=== PATIENT | female | born 1960 | race Caucasian/White ===

== ENCOUNTER 2020-05-05 07:38 | Outpatient (CLI) | payer BC, OTHER, SELFPAY ==
--- NOTE | 2020-05-05 07:43 | ECHO_ITS ---
Patient Info Name: Elva Berumen Age: 59 years : 1960 Gender: Female Ht: 61 in Wt: 150 lbs BSA: 1.73 m2 HR: 65 bpm BP: 183 / 116 mmHg Heart Rhythm: Sinus Rhythm Technical Quality: Good Exam Date: 05/05/2020 7:54 AM Exam Location: [facility]monary Patient Status: Outpatient Admit Date: 05/05/2020 Staff Ordering Physician: Johnna Bui Senior Policy Associate: Joshua Blunt RDCS Attending Provider: Swapnil Ramachandran MD Referring Physician: Hao MILLER; Exam Type: CA echo doppler color flow Study Info Indications R00.2 - Palpitations Complete two-dimensional, color flow and Doppler transthoracic echocardiogram is performed. Strain analysis performed. History/Risk Factors Palpitations. Summary 1. Complete two-dimensional, color flow and Doppler transthoracic echocardiogram is performed. 2. Left ventricular chamber dimension is normal. 3. Ventricular septum is sigmoid shaped. No LVOT obstruction. 4. Left ventricular systolic function is normal, estimated at 65-70%. 5. There is moderately increased left ventricular wall thickness. 6. The left ventricular diastolic function is grade I diastolic dysfunction. 7. E/e' 13 is mildly elevated. 8. Global longitudinal strain is normal at -17.7%. 9. Left atrial chamber dimension is mildly enlarged. 10. There is mild aortic valve sclerosis. 11. There is mild mitral valve regurgitation. Left Ventricle E/e' 13 is mildly elevated. Global longitudinal strain is normal at -17.7%. Ventricular septum is sigmoid shaped. No LVOT obstruction. Left ventricular chamber dimension is normal. Left ventricular systolic function is normal, estimated at 65-70%. There is moderately increased left ventricular wall thickness. The left ventricular diastolic function is grade I diastolic dysfunction. Right Ventricle Right ventricular chamber dimension is normal. Right ventricular systolic function is normal. Left Atria Left atrial chamber dimension is mildly enlarged. Right Atria Right atrial chamber dimension is normal. Aortic Valve The aortic valve is trileaflet. There is mild aortic valve sclerosis. There is no aortic valve stenosis. There is no aortic valve regurgitation. Pulmonic Valve There is no pulmonic regurgitation. Mitral Valve There is no mitral valve stenosis. There is mild mitral valve regurgitation. Tricuspid Valve There is no tricuspid valve regurgitation. Pericardium/Pleural There is no pericardial effusion. Inferior Vena Cava Normal inferior vena cava with >50% collapse upon inspiration consistent with normal right atrial pressure, 5 mmHg. Aorta The aortic root size at the sinus of Valsalva is normal. Left Ventricular Outflow Tract Name Value Normal LVOT 2D LVOT Diameter 2.0 cm LVOT Doppler LVOT Peak Gradient 2 mmHg LVOT Mean Gradient 2 mmHg LVOT VTI 17 cm LVOT VTI/AV VTI Ratio 0.7 LVOT Stroke Volume 56 ml LVOT CO
== END 2020-05-05 07:39 | disposition home or self-care (01) ==
PROVIDERS: PCP Family Medicine; Visit Provider Family Medicine
DX: R00.2 Palpitations (principal)
CPT/HCPCS: 93306

== ENCOUNTER 2020-05-12 12:15 | Outpatient (CLI) | payer BC, OTHER, SELFPAY ==
--- NOTE | ~2020-05-12 | MM_ITS ---
EXAMINATION: MM screening devonte BI w brenda HISTORY: Screening TECHNIQUE: Craniocaudal and mediolateral oblique 3-D tomosynthesis images were obtained and synthetic 2-D images were generated. CAD analysis was submitted and interpreted. COMPARISON: Comparison to multiple prior studies sequentially, with oldest reviewed study dated 08/26. BREAST PARENCHYMAL COMPOSITION: There are scattered areas of fibroglandular density. FINDINGS: There is no evidence of suspicious mass, calcification, or architectural distortion to sugg est malignancy in either breast. There has been no suspicious interval change. IMPRESSION: 1. No mammographic evidence of malignancy. 2. Recommend routine screening mammography in one year. BI-RADS Category 1: Negative Reviewed, dictated and finalized at location A. TECHNICIAN
== END 2020-05-12 12:16 | disposition home or self-care (01) ==
LOC: ANHIMG 12:17
PROVIDERS: PCP Family Medicine; Visit Provider Family Medicine
DX: Z12.31 Encounter for screening mammogram for malignant neoplasm of breast (principal)
CPT/HCPCS: 77063; 77067

== ENCOUNTER 2020-06-21 14:24 | Outpatient (CLI) | payer BC, OTHER, SELFPAY ==
--- NOTE | ~2020-06-21 | MR_ITS ---
EXAMINATION: MR brain/brain stem wo/w con DATE: 06/21/2020 15:33 INDICATION: Headache. Personal history of other diseases of the nervous system and sense organs. TECHNIQUE: Magnetic resonance imaging (MRI) of the brain and brainstem was performed without and with 13 mL MultiHance intravenous contrast. Sequences included sagittal and axial T1-weighted FSE, axial diffusion-weighted FS EPI, axial T2*-weighted GRE, axial T2-weighted FLAIR Propeller, and axial T2-we ighted Propeller. Postcontrast sequences included axial and coronal T1-weighted FSE. Apparent diffusi on coefficient (ADC) maps were created. COMPARISON: Brain MRI 09/25/2018 FINDINGS: There is no intracranial hemorrhage, acute infarction, or abnormal intracranial mass lesion . The ventricles are normal in size. There is mild mucosal thickening in the paranasal sinuses. The o rbits are normal. There is a right mastoid effusion. IMPRESSION: 1. Normal brain. 2. Right mastoid effusion again seen. Reviewed, dictated and finalized at location A. NEERING TECHNICAL SPECIALIST
[2020-06-21 15:08] LABS: Estimated Glomerular Filt Rate 42
== END 2020-06-21 14:25 | disposition home or self-care (01) ==
PROVIDERS: PCP Family Medicine; Visit Provider Nurse Practitioner Family
DX: R41.3 Other amnesia (principal); R51.9 Headache, unspecified; Z86.69 Personal history of other diseases of the nervous system and sense organs; M25.48 Effusion, other site
CPT/HCPCS: 70553; A9577

== ENCOUNTER 2020-06-25 08:49 | Outpatient (CLI) | payer BC, OTHER, SELFPAY ==
--- NOTE | ~2020-06-25 | NM_ITS ---
EXAMINATION: NM angel stress w perfusion EXAM DATE: 06/25/2020 11:04 INDICATION: Chest pain, palpitations. Ischemic chest pain. TECHNIQUE: Rest images were obtained following intravenous administration of 9.3 mCi Tc99m tetrofosmi n (Myoview). The patient was infused intravenously with Lexiscan (regadenoson). Then, 29.1 mCi Tc99m tetrofosmin (Myoview) was administered intravenously, and stress images were obtained. Data was deion nstructed into short axis and horizontal and vertical long axis SPECT images. Gated SPECT images were also obtained. There is no prior study for comparison. FINDINGS: There is no reversible or fixed perfusion abnormality to suggest ischemia or infarction. Th ere is normal left ventricular wall motion. End diastolic volume: 90 mL. End-systolic volume: 24 mL. Left ventricular ejection fraction: 73%. IMPRESSION: 1. Normal myocardial perfusion at rest and during stress. 2. Left ventricular ejection fraction measuring 73%. Reviewed, dictated and finalized at location B. INE MAINTENANCE REPAIRER
--- NOTE | 2020-06-25 09:28 | EST_ITS ---
Patient Info Name: Elva Berumen Age: 59 years : 1960 Gender: Female Ht: 61 in Wt: 150 lbs BSA: 1.73 m2 Exam Date: 06/25/2020 9:53 AM Exam Location: [facility] Stress Patient Status: Outpatient Admit Date: 06/25/2020 Staff Ordering Physician: Johnna Bui Attending Provider: Johnna Bui Exercise Technologist: Gisell Palmer CT Exercise Physician: Dayo James DO Exam Type: CA stress angel w NM Study Info Indications R07.9 - Chest pain, unspecified A regadenoson stress test was performed. Summary 1. 1. Negative lexiscan stress test for ischemic ST changes by ECG criteria. 2. 2. Baseline hypertension. 3. 3. Nuclear scan to follow and will be reported separately. Please correlate with it. 4. 4. Patient informed of the above results. Protocol: Lexiscan Stress ECG Details Stage: REST Duration (min): 16 min : 53 sec HR (bpm): 59 SBP (mmHg): 168 DBP (mmHg): 97 Stage: STAGE 1 Duration (min): 1 min : 0 sec HR (bpm): 76 SBP (mmHg): 180 DBP (mmHg): 111 Stage: RECOVERY Duration (min): 1 min : 0 sec HR (bpm): 89 SBP (mmHg): 180 DBP (mmHg): 111 Stage: RECOVERY Duration (min): 2 min : 0 sec HR (bpm): 86 SBP (mmHg): 180 DBP (mmHg): 111 Stage: RECOVERY Duration (min): 3 min : 0 sec HR (bpm): 82 SBP (mmHg): 174 DBP (mmHg): 107 Stage: RECOVERY Duration (min): 4 min : 0 sec HR (bpm): 79 SBP (mmHg): 174 DBP (mmHg): 107 Stage: RECOVERY Duration (min): 4 min : 59 sec HR (bpm): 78 SBP (mmHg): 185 DBP (mmHg): 107 Rest HR: 59 bpm Peak HR: 91 bpm Rest Sys BP: 168 mmHg Peak Sys BP: 185 mmHg Max Pred HR: 159 bpm % Max Pred HR: 57 % Target HR: 135 bpm Max RPP: 16,835 bpm*mmHg Termination Reason: Completed protocol Cardiac Symptoms: Shortness of breath, Chest pain, Dizziness Total Time: 1 min : 0 sec Rest Ruiz BP: 97 mmHg Peak Ruiz BP: 107 mmHg Total Dose: 0.4 mg Resting ECG Sinus rhythm. Stress ECG No ST changes. Arrhythmias None. Report Signatures
== END 2020-06-25 08:50 | disposition home or self-care (01) ==
PROVIDERS: PCP Family Medicine; Visit Provider Nurse Practitioner Family
DX: R07.89 Other chest pain (principal); R00.2 Palpitations; I10 Essential (primary) hypertension
CPT/HCPCS: 78452; 93017; A9502; J2785

== ENCOUNTER → 2020-12-01 13:34 | Outpatient (CLI) | payer BC, OTHER, SELFPAY ==
--- NOTE | ~2020-12-01 | XR_ITS ---
XR foot RT min 3V DATE: 12/01/2020 14:05 INDICATION: Right foot pain, ankle pain TECHNIQUE: 4 views COMPARISON: None FINDINGS: Diffuse osteopenia. Plantar and posterior calcaneal enthesopathy. Mild osteoarthritis at the first metatarsophalangeal joint. No fracture, dislocation, periosteal reaction or bone destruction. IMPRESSION: Osteopenia Plantar and posterior calcaneal enthesopathy Mild osteoarthritis at first metatarsophalangeal joint Reviewed, dictated and finalized at location B.
--- NOTE | ~2020-12-01 | XR_ITS ---
XR ankle RT min 3V DATE: 12/01/2020 14:05 INDICATION: Right ankle pain following injury TECHNIQUE: 4 views COMPARISON: None FINDINGS: There is plantar and posterior calcaneal enthesopathy. No recent fracture or dislocation of the ankle or disruption of the ankle mortise. No periosteal reac tion or bone destruction. IMPRESSION: Plantar and posterior calcaneal enthesopathy No recent fracture or dislocation of the ankle Reviewed, dictated and finalized at location B.
== END ==
PROVIDERS: PCP Family Medicine
DX: M85.871 Other specified disorders of bone density and structure, right ankle and foot (principal); M77.31 Calcaneal spur, right foot
CPT/HCPCS: 73610; 73630

== ENCOUNTER → 2021-02-25 10:23 | Outpatient (CLI) | payer BC, OTHER, SELFPAY ==
--- NOTE | ~2021-02-25 | CT_ITS ---
EXAMINATION: CT abdomen w con EXAM DATE: 02/25/2021 10:55 INDICATION: R10.13 - Epigastric pain . TECHNIQUE: Spiral CT of the abdomen was performed following intravenous injection of 100 mL Omnipaque 350. Axial, coronal and sagittal images of the abdomen were reviewed. The dose-length product (DLP ) for this examination was 305.43 mGy-cm. The exposure was tailored according to patient size (auto mA exposure control), and iterative reconstruction (ASIR) was used as additional dose reduction techn ique. Comparison is made to prior examination from 04/23/2017. FINDINGS: The liver, spleen, adrenal glands and pancreas are unremarkable. There are cholecystectomy clips. Portal and splenic veins are patent. Kidneys enhance symmetrically. There is no hydronephr osis. There is no retroperitoneal lymphadenopathy. There is moderate scattered arteriosclerotic disease. Small umbilical, supra umbilical fat-containing hernias. The stomach and small bowel are unremarkable. There is expected amount of colonic stool. No free i ntraperitoneal gas. The heart is normal in size. There are no pericardial or pleural effusions. T he lung bases are unremarkable. There are no osteoblastic or osteolytic lesions identified. IMPRESSION: 1. Small umbilical, supra umbilical fat-containing hernias. Reviewed, dictated and finalized at location B.
[2021-02-25 10:44] LABS: Estimated Glomerular Filt Rate > 60
== END ==
PROVIDERS: PCP Nurse Practitioner Family; Visit Provider Nurse Practitioner Family
DX: K21.9 Gastro-esophageal reflux disease without esophagitis (principal); R10.13 Epigastric pain; Z72.0 Tobacco use; K42.9 Umbilical hernia without obstruction or gangrene
CPT/HCPCS: 74160; Q9967

== ENCOUNTER → 2021-03-18 09:36 | Outpatient (CLI) | payer BC, OTHER, SELFPAY ==
--- NOTE | ~2021-03-18 | MMUS_ITS ---
EXAMINATION: MM diagnostic devonte BI w brenda, US breast LT limited HISTORY: Pain in the upper outer quadrant of the left breast and lump in the lower outer quadrant of the left breast. TECHNIQUE: Craniocaudal, mediolateral, and mediolateral oblique 3-D tomosynthesis images of the breas ts were performed and synthetic 2-D images were generated. CAD analysis was submitted and interpreted . High resolution limited left breast ultrasound was performed. COMPARISON: 05/12/2020, 10/17/2016, 08/26/2012 BREAST PARENCHYMAL COMPOSITION: There are scattered areas of fibroglandular density. FINDINGS: MAMMOGRAPHIC FINDINGS: There is no evidence of suspicious mass, calcification, or architectural distortion in either breast to suggest malignancy. There has been no suspicious interval change. No mammographic correlate is jono ntified for the patient's reported left breast pain or palpable lump. ULTRASOUND: There is a 5 mm x 2 mm oval, circumscribed, parallel, hypoechoic mass with no posterior features or i nternal vascularity at the 12:00 location 3.5 cm from the nipple in the area of the patient's breast pain. When compared to prior ultrasound from 2012, this demonstrates minimal increase in size. IMPRESSION: 1. Probably benign left breast mass at the 12:00 location. 2. Recommend 6 month follow-up left diagnostic mammogram and ultrasound. BI-RADS category 3, probably benign findings. Reviewed, dictated and finalized at location A. H MANAGER IMPRESSION: 1. Probably benign left breast mass at the 12:00 location. 2. Recommend 6 month follow-up left diagnostic mammogram and ultrasound. BI-RADS category 3, probably benign findings.
== END ==
PROVIDERS: PCP Family Medicine; Visit Provider Nurse Practitioner Family
DX: N63.20 Unspecified lump in the left breast, unspecified quadrant (principal); R92.8 Other abnormal and inconclusive findings on diagnostic imaging of breast
CPT/HCPCS: 76642; 77062; 77066; G0279

== ENCOUNTER 2021-10-03 11:59 | Observation (INO) | payer BC, OTHER, SELFPAY ==
[2021-10-03] VITALS (17 sets, daily range): BP systolic 143–237; BP diastolic 74–124; PULSE 62–92; RESP 10–21; TEMP 35.6–36.4; O2SAT 92–100; BMI 29.4
--- NOTE | ~2021-10-03 | CT_ITS ---
EXAMINATION: Peña Eubanks, DO DATE: 10/03/2021 14:44 INDICATION: Chest, neck, and back pain. Hypertension. TECHNIQUE: Computed tomographic angiography (CTA) of the chest, abdomen, and pelvis was performed wit h 100 mL Omnipaque 300 intravenous contrast. Automated exposure control and iterative reconstruction technique were employed. The dose-length product was 713.27 mGy-cm. Maximum intensity projection 3D-r econstructions of the aorta and other arteries were constructed by the technologist on a separate wor kstation. COMPARISON: CT abdomen 02/25/2021 FINDINGS: CHEST CTA: The lungs demonstrate minimal atelectasis. No pleural effusion. The heart size is normal. No pericard ial effusion. There is no pulmonary embolus. Thoracic aorta is normal in caliber. There is mild aorti c atherosclerosis. There is mild thoracic spondylosis. ABDOMEN AND PELVIS CTA: The liver and spleen are normal. There are changes of cholecystectomy. The pancreas, adrenal glands, and kidneys are normal. There are no dilated loops of bowel. The appendix is normal. There is no sign ificant stenosis of celiac axis, superior mesenteric artery, or the renal arteries. 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 Aortic atherosclerosis is noted. No aneurysm or di ssection. There are no pathologically enlarged lymph nodes. There is no free intraperitoneal fluid. T here is a supraumbilical ventral hernia containing fat. There is mild lumbar spondylosis. IMPRESSION: 1. Aortic atherosclerosis. No aneurysm or dissection. 2. Supraumbilical ventral hernia containing fat. Reviewed, dictated and finalized at location A.
--- NOTE | ~2021-10-03 | CT_ITS ---
EXAMINATION: CT brain wo con DATE: 10/03/2021 14:43 INDICATION: headache . TECHNIQUE: Computed tomography (CT) of the head was performed without intravenous contrast. The mA wa s adjusted according to patient size. Iterative reconstruction technique was employed. The dose-lengt h product was 605.33 mGy-cm. COMPARISON: MRI brain 06/21/2020 FINDINGS: No acute intracranial hemorrhage or extra-axial fluid collection. No hydrocephalus, mass, or herniation. No acute ischemic infarct. Unremarkable dural venous sinus attenuation. No acute osseous abnormality. Trace right mastoid effusion, otherwise the aerated spaces are clear. Mild chronic white matter change. Old right basal ganglia infarct. Atherosclerotic intracranial calci fication. IMPRESSION: No acute intracranial process. Reviewed, dictated and finalized at location K.
--- NOTE | 2021-10-03 12:09 | ECG_ITS ---
Measurements Intervals [place] Rate: 64 P: 54 RI: 189 QRS: 25 QRSD: 78 T: 40 QT: 379 QTc: 391 Interpretive Statements SINUS RHYTHM POSSIBLE LEFT ATRIAL ENLARGEMENT [-0.1mV P WAVE IN V1/V2] COMPARED TO ECG 09/07/2018 05:56:11 SINUS RHYTHM NOW PRESENT Electronically Signed On 10-03-2021 15:36:42 CDT by Ayse Colunga MD
[2021-10-03 12:27] LABS: Basophils Percent Auto 0.6 % (0.2-1.2); Eosinophils Absolute Auto 0.2 K/mm3 (0-0.3); Eosinophils Percent Auto 2.4 % (0-4.4); Hemoglobin 14.2 g/dL (12.0-15.0); Immature Granulocyte Absolute 0.01 K/mm3 (0.00-0.031); Immature Granulocyte Percent A 0.2 % (0-0.5); Lymphocytes Absolute Auto 1.58 K/mm3 (0.9-3.2); Lymphocytes Percent Auto 25.1 % (18.3-44.2); Mean Corpuscular HGB Conc 32.3 g/dl (32-36); Mean Corpuscular Hemoglobin 31.2 pg (26-34); Mean Corpuscular Volume 96.7 fl (80-100); Mean Platelet Volume 9.3 fl (7.4-10.4); Monocytes Absolute Auto 0.3 K/mm3 (0.1-0.6); Monocytes Percent Auto 4.3 % (2.6-8.5); Neutrophils Absolute Auto 4.3 K/mm3 (1.3-6.7); Neutrophils Percent Auto 67.4 % (45.5-73.1); Platelet Count Result 264 k/mm3 (150-375); Red Blood Count 4.55 M/mm3 (4.2-5.4); Red Cell Distribution Width 13.5 % (11.5-14.5); White Blood Count 6.3 K/mm3 (4.5-10.0)
[2021-10-03 12:37] LABS: Alanine Aminotransferase 22 U/L (6-35); Albumin Level 4.5 g/dL (3.5-5.1); Alkaline Phosphatase 91 U/L (38-126); Anion Gap 7 mmol/L (8-16); Aspartate Amino Transferase 22 U/L (14-36); Bilirubin,Total 0.2 mg/dL (0.2-1.3); Blood Urea Nitrogen 14 mg/dL (7-17); Calcium 9.7 mg/dL (8.4-10.2); Carbon Dioxide 28 mmol/L (22-30); Chloride 104 mmol/L (98-107); Estimated CRCL calculation 51 ml/min; Estimated Glomerular Filt Rate > 60; Glucose 96 mg/dL (65-110); Potassium 4.2 mmol/L (3.4-5.0); Sodium 139 mmol/L (137-145)
--- NOTE | 2021-10-03 13:12 | ED.GENADULT ---
HPI - General Adult General Chief complaint: Recheck/Abnormal Lab/Rx Stated complaint: high bp, from dr. powell office Time Seen by Provider: 10/03/21 12:56 Source: RN notes reviewed History of Present Illness HPI narrative: Patient presents emergency department from Dr. Powell's office for hypertension. Patient states she has a history of hypertension and is on blood pressure medicine she states she has not taken for the past 3 days because she gone to her PCP last week and they had noted that she had had really no change with her blood pressure since she started medication. States that she is waiting to see Dr. Powell today and saw him in the office that time her blood pressures were up in the systolics of [address] Powell brought her down to the emergency department for further evaluation patient states that she has had a headache she denies any fevers or chills vision changes numbness or tingling in extremities,. Patient states that starting last night she developed pain in her left lower back that went up her left side into her left ribs up into her left side of her neck and into her left ear states she did take a muscle relaxer last night for the symptoms she denies any numbness or weakness of the extremities Related Data Allergies Allergy/AdvReac Type Severity Reaction Status Date / Time latex Allergy Unknown Unknown Verified 10/03/21 13:01 Penicillins Allergy Unknown Unknown Verified 10/03/21 13:01 Bgwerri-NDI-QgL Reductase Allergy Unknown Muscle pain Verified 10/03/21 13:01 Inhibitor [Brovkcm-Tkk-Stj Reductase Inhibitor] ezetimibe [From Zetia] AdvReac Severe Cramping Verified 10/03/21 13:01 of the Muscles azithromycin AdvReac Intermediate Nausea Verified 10/03/21 13:01 Review of Systems Review of Systems: Gen.: Denies fevers or chills Eyes: Denies eye pain or visual change ENT: Denies congestion reports left-sided neck pain and left ear pain Respiratory: Denies shortness of breath or cough CV: Denies chest pain or palpitations reports left rib pain GI: Reports left-sided abdominal pain nausea, emesis or diarrhea Musculoskeletal: Reports left-sided back pain denies muscle pain Neuro: See HPI Skin: Denies rash Except as documented, all other systems reviewed and negative PMFSH Past Medical History Medical History (Updated 10/03/21 @ 16:14 by Peña Eubanks DO) Atherosclerosis of renal artery BMI 28.0-28.9,adult Diverticulosis Gastro-esophageal reflux disease without esophagitis Tobacco abuse Uncontrolled hypertension Family History Family History Grandparent Family history of heart disease in male family member before age 55 Father Hypertension Lung cancer Mother Hypertension Glaucoma Sibling Diabetes mellitus Hypertension Glaucoma Other Family history of arthritis Social History Social History Smoking packs per day: 0.5 Smoking cigarettes per day: 10.0 Years smoked: 32 Smoking pack-years: 16.00 Smoking status: Current every day smoker Tobacco type: cigarettes Second hand tobacco smoke exposure: Yes Alcohol intake: current Substance use: never Substance use type: does not use 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 CARDIOVASCULAR: Regular rate and rhythm without murmurs rubs or gallops. ABDOMINAL: Soft, and left lower quadrant no tenderness left upper quadrant, right upper quadrant right lower quadrant no rebound or guarding nondistended tender palpation Back: No midline thoracic lum
[2021-10-03 13:25] LABS: Appearance Urine Clear (Clear); Bilirubin Urine Negative (Negative); Blood Urine Negative (Negative); Color Urine Yellow (Yellow); Glucose Urine UA Negative (Negative); Ketones Urine Negative (Negative); Leukocyte Esterase Ur Negative LEU/UL (Negative); Nitrate Urine Negative (Negative); Protein Urine Negative (Negative); Urobilinogen Urine 0.2 mg/dL (<2.0); pH Urine 6.5 (5.0-9.0)
[2021-10-03 13:28] LABS: RBC Urine 0-2 /hpf (0-2); Squamous Epithelial Cell Urine Rare /hpf (Few); WBC Urine 0-3 /hpf
[2021-10-03 13:30] LABS: Add Urine Microscopic? YES
[2021-10-03] MEDS: hydrALAZINE HCL 20 MG/ML VIAL 10 MG IV PUSH ×2 (14:07→16:01)
[2021-10-03 15:25] LABS: Creatinine Urine 53.8 mg/dL
[2021-10-03 15:44] LABS: MALB Creatinine Ratio < 11.2 mg/g (0-30); Microalbumin Urine Random < 6.0 mg/L (0-16.7)
[2021-10-03] MEDS: HYDROcodone/acetaminophen (*CRX) 5-325 MG TABLET 1 TAB PO (16:01)
--- NOTE | 2021-10-03 16:29 | ADMGEN ---
This patient, Elva Berumen, was admitted to IMU Room 201-01. Patient/family oriented to hospital policies and general routines including ID bracelet, bed and alarms, visiting hours, pain management, procedures, bathroom and other care routines, personal items, smoking policy, room service/diet, and visiting hours. Information on how to activate the Rapid Response Team has been discussed. Patient/Family are encouraged to report perceived risks to care and to ask questions if they do not understand what they are told or what they should do.
[2021-10-03 19:08] LABS: Parathyroid Intact 64.9 pg/mL (7.5-53.5)
--- NOTE | 2021-10-03 19:41 | PM.IMHP ---
H&P: HPI History of Present Illness Date/Time: Patient was placed observation status for expected length of stay less than 23 hours for management, will plan to re-evaluate tomorrow for improvement. 10/03/21 19:41 Chief Complaint: Hypertension Narrative: Ms. Berumen is a 60-year-old female who presented to the emergency room after being brought by Nephrology for uncontrolled hypertension. Patient states that she has a history of hypertension and typically runs a blood pressure of 140s over 70s, but over the last month since having injections into her knees she states her blood pressure has been uncontrolled. Patient states that she had been taking amlodipine and Bystolic, but she quit taking the Bystolic because she states that was causing heartburn. Patient was was placed on metoprolol and had improvement in her reflux. Per patient's primary care records patient has had multiple issues/reactions to multiple blood pressure medications when has been difficult controlling her blood pressure. Patient was referred to Nephrology for further evaluation of her hypertension and when the automobile upholsterer saw her today he noticed that her blood pressure significantly elevated brought her to the emergency room. Patient states for the last month she has had a headache. Patient denies any blurred vision, double vision, slurred speech, numbness, tingling, or weakness to extremities. Patient states she has had side effects from multiple medications in the past. Patient denies any chest pain, shortness a breath, lightheadedness, dizziness, or syncopal episodes. Patient has a known history of hypertension that has been uncontrolled, osteoarthritis, and gastroesophageal reflux disease. Review of Systems Review of Systems: A 12 point review of systems was completed patient all pertinent positive and negative per HPI the remainder are unremarkable. [facility] Past Medical History Medical History (Updated 10/03/21 @ 16:14 by Peña Eubanks DO) Atherosclerosis of renal artery BMI 28.0-28.9,adult Diverticulosis Gastro-esophageal reflux disease without esophagitis Tobacco abuse Uncontrolled hypertension Family History Family History Grandparent Family history of heart disease in male family member before age 55 Father Hypertension Lung cancer Mother Hypertension Glaucoma Sibling Diabetes mellitus Hypertension Glaucoma Other Family history of arthritis Social History Social History Smoking packs per day: 0.5 Smoking cigarettes per day: 10.0 Years smoked: 44 Smoking pack-years: 22.00 Smoking status: Current every day smoker Tobacco type: cigarettes Second hand tobacco smoke exposure: Yes Additional smoking assessment comments: trying to quit Alcohol intake: current Drinks per week: 2 Substance use: never Substance use type: does not use Additional occupation/education comments: WALKER [employer] Gender identity (if verbalized by the patient): Female Spiritual care concerns: No Meds Home Medications and Allergies Home Medications Medication Instructions Recorded Confirmed Type metoprolol succinate 100 mg 100 mg PO DAILY #30 tabs 09/27/21 10/03/21 Rx tablet,extended release 24 hr cyclobenzaprine 7.5 mg tablet 7.5 mg PO .HS PRN Muscle Pain 10/03/21 10/03/21 History Allergies Allergy/AdvReac Type Severity Reaction Status Date / Time latex Allergy Unknown Unknown Verified 10/03/21 13:01 Penicillins Allergy Unknown Unknown Verified 10/03/21 13:01 Dgezbgc-CNE-LcY Reductase Allergy Unknown Muscle pain Verified 10/03/21 13:01 Inhibitor [Vrjrizj-Aoi-Gig Reductase Inhibitor] ezetimibe [From Zetia] AdvReac Severe Cramping Verified 10/03/21 13:01 of the Muscles azithromycin AdvReac Intermediate Nausea Verified 10/03/21 13:01 Vital Signs Vital
[2021-10-03] MEDS: ACETAMINOPHEN 325 MG TABLET 650 MG PO (22:57)
[2021-10-03] MEDS: CYCLOBENZAPRINE HCL 5 MG TABLET 7.5 MG PO (22:58)
--- NOTE | 2021-10-03 23:15 | PCRCNOTE ---
Pt scheduled to move rooms at some point throughout the night. Due to the pt being moved, the apnea link SANDRA study was not completed.
--- NOTE | 2021-10-03 23:45 | PC.NURSE ---
This patient, Elva Berumen, was transferred to [[id number] ] on 10/03/21 at 2345. Personal belongings sent with patient. Report given to [ Milagro RAVI]. Appropriate documentation sent with patient.
[2021-10-04] VITALS (15 sets, daily range): BP systolic 154–216; BP diastolic 82–112; PULSE 55–75; RESP 12–20; TEMP 36.3–36.6; O2SAT 97–99
[2021-10-04 06:24] LABS: Hemoglobin 12.9 g/dL (12.0-15.0); Mean Corpuscular HGB Conc 33.1 g/dl (32-36); Mean Corpuscular Hemoglobin 31.1 pg (26-34); Mean Platelet Volume 9.3 fl (7.4-10.4); Platelet Count Result 259 k/mm3 (150-375); Red Blood Count 4.15 M/mm3 (4.2-5.4); Red Cell Distribution Width 13.7 % (11.5-14.5); White Blood Count 5.5 K/mm3 (4.5-10.0)
[2021-10-04 06:34] LABS: Alanine Aminotransferase 17 U/L (6-35); Albumin Level 3.9 g/dL (3.5-5.1); Alkaline Phosphatase 67 U/L (38-126); Anion Gap 6 mmol/L (8-16); Aspartate Amino Transferase 18 U/L (14-36); Bilirubin,Total 0.4 mg/dL (0.2-1.3); Blood Urea Nitrogen 11 mg/dL (7-17); Calcium 8.9 mg/dL (8.4-10.2); Carbon Dioxide 25 mmol/L (22-30); Chloride 107 mmol/L (98-107); Estimated CRCL calculation 75 ml/min; Estimated Glomerular Filt Rate > 60; Glucose 90 mg/dL (65-110); Potassium 3.9 mmol/L (3.4-5.0); Sodium 138 mmol/L (137-145)
[2021-10-04 07:50] LABS: Platelet Estimate Adequate (Adequate)
[2021-10-04 07:52] LABS: Atypical Lymphocytes Present
--- NOTE | 2021-10-04 07:56 | PM.CNNEP ---
Assessment and Plan Additional Plan 1. Elva has poorly controlled hypertension. This is mostly because she does not tolerate medications. We discussed at length her side effects of medications. Some side effects are valid such as lisinopril causes a cough and amlodipine causes swelling. However other side effects she has may or may be not related to the medication that she is on. She has multiple other issues such as her headache, chronic back pain, smoking, etc. she says that her blood pressure goes up whenever she gets angry, or anything goes on like a car wreck, or some sudden illness. It seems that metoprolol was being tolerated fairly well. So this is been reinstituted. Adrenaline seems to be driving some of her high blood pressure, especially if it rises with stress. I told her metoprolol would be the perfect medication for this. She says that made her heart beat fast. I Told her this is actually the opposite of what it does. I think she jumps to the conclusion that if she has any symptom it is due to some medication that she is on. We discussed the importance of controlling her blood pressure. Her high blood pressure could cause stroke, heart attack, kidney disease, or . She certainly does not want those. So were treating off side effects of her blood pressure with side effects of medications. And we do not want to jump to the conclusion of symptoms always being from medications. Right now our blood pressure seems to be a little bit better. He is on metoprolol 100mg daily. Tomorrow I will add irbesartan as a 2nd agent. In the meantime she is getting hormonal tests for blood pressure. 2. Cigarette abuse. I encouraged her to stop smoking. 3. She should try to lose some weight. This would help her blood pressure as well without having to add more medication. 4. GERD. No symptoms of this right now. 5. Anxiety consider psychiatric input? History of Present Illness Reason for Consult Consult date: 10/04/21 Chief Complaint Chief complaint: Hypertensive urgency History of Present Illness Narrative: Dee is a very pleasant 60-year-old lady has multiple medical problems including severe hypertension, tobacco abuse, GERD, diverticulosis, who came to my office for the 1st time yesterday morning. She had a blood pressure of 240/140 so I wheeled her to the emergency room. Patient has long history of hypertension going back about 15 years. She says it started when she got a steroid shot when it went ?stroke high ?. Since then she has been struggling with her blood pressure. She has been on multiple medications but none of them are very well tolerated. Amlodipine causes swelling. Lisinopril causes a cough. She says that people other medications have been tried but each time she has side effects to those. I asked her if she has been on any blood pressure medication that did not give her a side effect and she could not think of 1. A month or 2 ago she was started on metoprolol 100mg per day. It did not really improve her blood pressure very much but she did not have any side effects early on. She was then started on Zetia and started seeing spots in front of her eyes and was dizzy. So she stopped both the Zetia and the metoprolol about 7 days ago. Yesterday when she was in the office she had not been taking any metoprolol for about 6 days. When she was in the ER she had multiple complaints. She has back pain, belly pain, anxiety, headache. In the ER she received some hydralazine and blood pressure came down to more reasonable levels. She had a CTA of the chest belly and pelvis and all of this was negative. The renal arteries were okay. Overnight the patient felt a little bit better. Her headache is better. She is generally very anxious. Conversation is very rapid, multiple symptoms, very tangential. Asked her she was ever treated for anxiety. She has not been. Review of Systems Constitutional: Evonneti
[2021-10-04] MEDS: METOPROLOL SUCCINATE EXT REL 100 MG TABCR PO (08:16)
[2021-10-04] MEDS: PANTOPRAZOLE SOD SESQUIHYDRATE 20 MG TAB PO (08:17)
[2021-10-04] MEDS: LIDOCAINE 5% PATCH 1 PATCH TRANSDERM (12:10)
--- NOTE | 2021-10-04 13:24 | PM.IMPN ---
Progress Note: A&P Assessment and Plan (1) Hypertensive urgency: Code(s): I16.0 - Hypertensive urgency Status: Acute Assessment and Plan: -chronic issue, uncontrolled HTN -seen by nephrology in the office yesterday and had a BP of 240/140 and was sent to hospital for inpatient management -pt's metoprolol has been restarted -Nephrology has ordered metanephrines, aldosterone, free cortisol and 24 urine. -appreciate further recommendations from nephrology (2) Gastro-esophageal reflux disease without esophagitis: Code(s): K21.9 - Gastro-esophageal reflux disease without esophagitis Status: Acute Assessment and Plan: -Will place patient on PPI since new medications will be started patient states she often gets reflux from any new medications. (3) Anxiousness: Code(s): F41.9 - Anxiety disorder, unspecified Status: Acute Assessment and Plan: -no offical dx of anxiety but patient is VERY anxious on exam. Conversation is very rapid and tangential with multiple symptoms and complaints. -consider psych consult vs outpatient evaluation Subjective Date/time seen: 10/04/21 13:24 Interval history: 60 yo female w/ hx of ?hypertension that has been uncontrolled, osteoarthritis, and gastroesophageal reflux disease, admitted for hypertensive urgency. Pt very anxious today. Having chronic low back and hip pain. Also having a posterior headache. No cp/sob/LE pain or edema. Review of Systems Review of Systems: All systems reviewed & are unremarkable except as noted in HPI and below Exam Narrative: General: No acute distress, non toxic appearing Eyes: PERRL, no scleral icterus HEENT: NCAT, external ears normal, MMM Respiratory: No respiratory distress, Lungs CTA bilaterally, no wheezing Cardiovascular: RRR, no murmur Abdominal: Soft, nontender, non distended, no rebound or guarding Musculoskeletal: Moves all 4 extremities, no edema Neurological: A/Ox3, speech clear, no facial asymmetry Skin: Warm, dry, no rashes Psychiatric: Normal affect, extremely anxious mood Objective Data Vital Signs Vital Signs: Vital Signs - 24 hr 10/03/21 13:30 10/03/21 13:32 10/03/21 13:59 Temperature Pulse Rate 64 64 63 Respiratory Rate 18 21 H 15 Blood Pressure 226/98 H Pulse Oximetry 99 99 99 Oxygen Delivery 10/03/21 14:42 10/03/21 15:21 10/03/21 16:05 Temperature 97 F L Pulse Rate 83 82 80 Respiratory Rate 10 L 17 20 Blood Pressure 207/100 H 186/76 H Pulse Oximetry 92 99 99 Oxygen Delivery 10/03/21 18:00 10/03/21 16:30 10/03/21 20:17 Temperature Pulse Rate 92 Respiratory Rate Blood Pressure Pulse Oximetry 97 Oxygen Delivery Room Air Room Air 10/03/21 20:00 10/03/21 20:00 10/03/21 22:52 Temperature 97 F L 97.6 F Pulse Rate 79 82 80 Respiratory Rate 20 18 Blood Pressure 143/74 H 162/75 H Pulse Oximetry 99 100 Oxygen Delivery 10/03/21 20:00 10/03/21 22:00 10/04/21 00:24 Temperature 97.9 F Pulse Rate 71 75 Respiratory Rate 20 Blood Pressure 156/93 H Pulse Oximetry 97 Oxygen Delivery Room Air 10/04/21 04:00 10/03/21 23:55 10/04/21 03:55 Temperature 97.4 F L Pulse Rate 66 72 65 Respiratory Rate 18 Blood Pressure 166/83 H Pulse Oximetry 99 Oxygen Delivery 10/04/21 08:16 10/04/21 10:10 10/04/21 08:00 Temperature 98 F Pulse Rate 69 66 68 Respiratory Rate 16 Blood Pressure 171/82 H Pulse Oximetry 98 Oxygen Delivery Intake/Output Intake/Output: Intake & Output 10/01/21 10/02/21 10/03/21 10/04/21 23:59 23:59 23:59 23:59 Intake Total 640 2170 Output Total 900 1000 Balance -260 1170 Meds/Results Medications: Active Medications Generic Name Dose Route Start Last Admin Trade Name Freq PRN Reason Stop Dose Admin Acetaminophen 650 mg 10/03/21 22:44 10/03/21 22:57 Acetaminophen 325 Mg Tablet PO 650 mg Q6H PRN Admin
[2021-10-04 20:33] LABS: Total Volume 24 Hour Urine 4500 ml
[2021-10-04] MEDS: SIMETHICONE 80 MG TAB.CHEW PO (20:49)
[2021-10-04] MEDS: hydrALAZINE HCL 20 MG/ML VIAL 10 MG IV PUSH (20:49)
[2021-10-04 21:06] LABS: Sodium 24 Hour Urine 117 mmol/day (40-220); Sodium Urine Random 26 meq/L
[2021-10-05] VITALS (12 sets, daily range): BP systolic 160–181; BP diastolic 76–97; PULSE 54–70; RESP 14–20; TEMP 36.1–36.9; O2SAT 97–99
[2021-10-05 06:10] LABS: Basophils Percent Auto 0.7 % (0.2-1.2); Eosinophils Absolute Auto 0.2 K/mm3 (0-0.3); Eosinophils Percent Auto 3.2 % (0-4.4); Hemoglobin 13.1 g/dL (12.0-15.0); Immature Granulocyte Absolute 0.03 K/mm3 (0.00-0.031); Immature Granulocyte Percent A 0.5 % (0-0.5); Lymphocytes Absolute Auto 1.91 K/mm3 (0.9-3.2); Lymphocytes Percent Auto 31.9 % (18.3-44.2); Mean Corpuscular Volume 97.2 fl (80-100); Mean Platelet Volume 9.3 fl (7.4-10.4); Monocytes Absolute Auto 0.4 K/mm3 (0.1-0.6); Monocytes Percent Auto 5.8 % (2.6-8.5); Neutrophils Absolute Auto 3.5 K/mm3 (1.3-6.7); Neutrophils Percent Auto 57.9 % (45.5-73.1); Platelet Count Result 267 k/mm3 (150-375); Red Blood Count 4.22 M/mm3 (4.2-5.4); Red Cell Distribution Width 13.8 % (11.5-14.5)
[2021-10-05 06:28] LABS: Anion Gap 6 mmol/L (8-16); Blood Urea Nitrogen 13 mg/dL (7-17); Carbon Dioxide 24 mmol/L (22-30); Chloride 109 mmol/L (98-107); Estimated CRCL calculation 65 ml/min; Estimated Glomerular Filt Rate > 60; Glucose 96 mg/dL (65-110); Potassium 3.9 mmol/L (3.4-5.0); Sodium 139 mmol/L (137-145)
[2021-10-05] MEDS: PANTOPRAZOLE SOD SESQUIHYDRATE 20 MG TAB PO (08:06)
[2021-10-05] MEDS: LIDOCAINE 5% PATCH 1 PATCH TRANSDERM (08:06)
[2021-10-05] MEDS: METOPROLOL SUCCINATE EXT REL 100 MG TABCR PO (08:06)
--- NOTE | 2021-10-05 10:30 | PM.PNNEP ---
Progress Note: A&P Additional Plan 1. Elva has poorly controlled hypertension. This is mostly because she does not tolerate medications. Multiple hormone tests are pending. CT a shows no renal artery stenosis. She is doing pretty well with the metoprolol. No severe side effects. Will add irbesartan as well. I will start with the middle of the range dose at 150 mg per day. Consider a diuretic down the line? Possibly consider anxiolytic medication? She should stop smoking.. 2. Cigarette abuse. I encouraged her to stop smoking. 3. She should try to lose some weight. This would help her blood pressure as well without having to add more medication. 4. GERD. No symptoms of this right now. 5. Anxiety consider psychiatric input? Subjective Date/time seen: 10/05/21 10:30 Interval history: Patient feels about the same. Last night her blood pressure rmoan to around 200. She says the blood pressure made her back hurt. The metoprolol makes her feel funny. It was a vague statement. We discussed at length about her blood pressure. We agree that she needs better blood pressure control. Metoprolol is a good start for her blood pressure because she has adrenaline driven spikes in blood pressure. Review of Systems Cardiovascular: Cardiovascular: Reports no additional cardiovascular complaints Respiratory: Respiratory: Reports no additional respiratory complaints Gastrointestinal: Gastrointestinal: Reports no additional gastrointestinal complaints Genitourinary: Genitourinary: Reports no additional female genitourinary complaints Exam Narrative: WDWN in NAD skin no rash head ncat lungs clear cor reg no rub abd BS+ nontender and soft ext no edema. Objective Data Vital Signs Vital Signs: Vital Signs - 24 hr 10/04/21 14:41 10/04/21 12:00 10/04/21 14:00 Temperature 36.6 C Pulse Rate 55 L 66 Respiratory Rate 14 Blood Pressure 154/82 H Pulse Oximetry 97 97 Oxygen Delivery Room Air 10/04/21 16:00 10/04/21 18:20 10/04/21 20:00 Temperature 36.3 C L Pulse Rate 70 60 Respiratory Rate 12 Blood Pressure 156/83 H Pulse Oximetry 98 Oxygen Delivery Room Air 10/04/21 20:45 10/04/21 22:26 10/04/21 20:00 Temperature 36.3 C L Pulse Rate 60 60 Respiratory Rate 18 Blood Pressure 216/112 H 198/95 H Pulse Oximetry 99 Oxygen Delivery 10/05/21 00:00 10/05/21 04:00 10/04/21 21:40 Temperature Pulse Rate 66 61 Respiratory Rate Blood Pressure Pulse Oximetry 97 Oxygen Delivery Room Air 10/05/21 06:15 10/05/21 08:06 Temperature 36.5 C Pulse Rate 61 61 Respiratory Rate 16 Blood Pressure 176/92 H Pulse Oximetry 98 Oxygen Delivery Intake/Output Intake/Output: Intake & Output 10/02/21 10/03/21 10/04/21 10/05/21 23:59 23:59 23:59 23:59 Intake Total 640 2650 Output Total 900 1000 500 Balance -260 1650 -500 Meds/Results Medications: Active Medications Generic Name Dose Route Start Last Admin Trade Name Ninoq PRN Reason Stop Dose Admin Acetaminophen 650 mg 10/03/21 22:44 10/03/21 22:57 Acetaminophen 325 Mg Tablet PO 650 mg Q6H PRN Administration Mild Pain (1-3) or Fever Cyclobenzaprine HCl 7.5 mg 10/03/21 19:43 10/03/21 22:58 Cyclobenzaprine Hcl 5 Mg Tablet PO 7.5 mg HS PRN Administration Muscle Pain Hydralazine HCl 10 mg 10/03/21 15:13 10/04/21 20:49 Hydralazine Hcl 20 Mg/Ml Vial IV PUSH 10 mg Q6H PRN Administration Blood Pressure - High Irbesartan 150 mg 10/05/21 09:00 Irbesartan 150 Mg Tablet PO QAM KAVON Lidocaine 1 patch 10/04/21 11:55 10/05/21 08:06 Lidocaine 5% Patch TRANSDERM 1 patch DAILY KAVON Administration Metoprolol Succinate 100 mg 10/04/21 09:00 10/05/21 08:06 Metoprolol Succinate Ext Rel 100 Mg Tabcr PO 100 mg DAILY KAVON Administration Pantoprazole Sodium 20 mg 10/04/21 09:00 10/05/21 08:06 Pantopr
[2021-10-05] MEDS: IRBESARTAN 150 MG TABLET PO (11:27)
--- NOTE | 2021-10-05 14:40 | PM.IMPN ---
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 -they have also started irbesartan -recommend cessation of smoking and dietary/lifestyle changes to lose weight -appreciate further recommendations from nephrology (2) Gastro-esophageal reflux disease without esophagitis: Code(s): K21.9 - Gastro-esophageal reflux disease without esophagitis Status: Acute Assessment and Plan: -Will place patient on PPI since new medications will be started patient states she often gets reflux from any new medications. (3) Anxiousness: Code(s): F41.9 - Anxiety disorder, unspecified Status: Acute Assessment and Plan: -no offical dx of anxiety but patient is VERY anxious on exam. Conversation is very rapid and tangential with multiple symptoms and complaints. -consider psych consult vs outpatient evaluation -discussed starting something for anxiety, discussed possibly starting Buspar. Pt is not keen on the idea but also not flat out refusing. She would like to change only one medication at a time. Subjective Date/time seen: 10/05/21 14:40 Interval history: 60 yo female w/ hx of ?hypertension that has been uncontrolled, osteoarthritis, and gastroesophageal reflux disease, admitted for hypertensive urgency. She feels a little better today. Back pain is better with ice packs. Discussed her anxiety, pt does not think she has anxiety. Not refusing medication but does not like the idea of adding medication because she thinks all medications have negative side effects on her. Review of Systems Review of Systems: All systems reviewed & are unremarkable except as noted in HPI and below Exam Narrative: General: No acute distress, non toxic appearing Eyes: PERRL, no scleral icterus HEENT: NCAT, external ears normal, MMM Respiratory: No respiratory distress, Lungs CTA bilaterally, no wheezing Cardiovascular: RRR, no murmur Abdominal: Soft, nontender, non distended, no rebound or guarding Musculoskeletal: Moves all 4 extremities, no edema Neurological: A/Ox3, speech clear, no facial asymmetry Skin: Warm, dry, no rashes Psychiatric: Normal affect, extremely anxious mood Objective Data Vital Signs Vital Signs: Vital Signs - 24 hr 10/04/21 14:41 10/04/21 16:00 10/04/21 18:20 Temperature 97.4 F L Pulse Rate 70 60 Respiratory Rate 12 Blood Pressure 156/83 H Pulse Oximetry 97 98 Oxygen Delivery Room Air 10/04/21 20:00 10/04/21 20:45 10/04/21 22:26 Temperature 97.4 F L Pulse Rate 60 Respiratory Rate 18 Blood Pressure 216/112 H 198/95 H Pulse Oximetry 99 Oxygen Delivery Room Air 10/04/21 20:00 10/05/21 00:00 10/05/21 04:00 Temperature Pulse Rate 60 66 61 Respiratory Rate Blood Pressure Pulse Oximetry Oxygen Delivery 10/04/21 21:40 10/05/21 06:15 10/05/21 08:06 Temperature 97.7 F Pulse Rate 61 61 Respiratory Rate 16 Blood Pressure 176/92 H Pulse Oximetry 97 98 Oxygen Delivery Room Air 10/05/21 08:00 10/05/21 09:00 10/05/21 12:00 Temperature 97.3 F L Pulse Rate 60 63 70 Respiratory Rate 14 Blood Pressure 160/90 H Pulse Oximetry 97 Oxygen Delivery Intake/Output Intake/Output: Intake & Output 10/02/21 10/03/21 10/04/21 10/05/21 23:59 23:59 23:59 23:59 Intake Total 640 2650 480 Output Total 900 1000 1100 Balance -260 5430 -620 Meds/Results Medications: Active Medications Generic Name Dose Route Start Last Admin Trade Name Jie PRN Reason Stop Dose Admin Acetaminophen 650 mg 10/03/21 22:44 10/03/21
[2021-10-05] MEDS: NICOTINE (*PBKC) 2 MG GUM PO (17:20)
[2021-10-05] MEDS: hydrALAZINE HCL 20 MG/ML VIAL 10 MG IV PUSH (21:48)
[2021-10-05] MEDS: polyethylene glycoL 3350 17 GM POWD.PACK PO ×2 (23:00→23:24)
[2021-10-06] VITALS: BP 153/93; PULSE 57; PULSE 62; RESP 18; TEMP 36.1; O2SAT 99
[2021-10-06 04:00] VITALS: BP 166/81; PULSE 53; PULSE 54; RESP 18; TEMP 36.6; O2SAT 98
[2021-10-06 06:20] LABS: Basophils Absolute Auto 0.1 K/mm3 (0.0-0.1); Basophils Percent Auto 0.7 % (0.2-1.2); Eosinophils Absolute Auto 0.2 K/mm3 (0-0.3); Eosinophils Percent Auto 2.8 % (0-4.4); Hematocrit 46.7 % (37.0-47.0); Hemoglobin 14.8 g/dL (12.0-15.0); Immature Granulocyte Absolute 0.02 K/mm3 (0.00-0.031); Immature Granulocyte Percent A 0.3 % (0-0.5); Lymphocytes Absolute Auto 2.32 K/mm3 (0.9-3.2); Lymphocytes Percent Auto 34.6 % (18.3-44.2); Mean Corpuscular HGB Conc 31.7 g/dl (32-36); Mean Corpuscular Volume 97.9 fl (80-100); Mean Platelet Volume 9.4 fl (7.4-10.4); Monocytes Absolute Auto 0.4 K/mm3 (0.1-0.6); Monocytes Percent Auto 5.2 % (2.6-8.5); Neutrophils Absolute Auto 3.8 K/mm3 (1.3-6.7); Neutrophils Percent Auto 56.4 % (45.5-73.1); Platelet Count Result 302 k/mm3 (150-375); Red Blood Count 4.77 M/mm3 (4.2-5.4); Red Cell Distribution Width 13.3 % (11.5-14.5); White Blood Count 6.7 K/mm3 (4.5-10.0)
[2021-10-06 06:44] LABS: Alanine Aminotransferase 22 U/L (6-35); Albumin Level 4.4 g/dL (3.5-5.1); Alkaline Phosphatase 77 U/L (38-126); Anion Gap 9 mmol/L (8-16); Aspartate Amino Transferase 24 U/L (14-36); Bilirubin,Total 0.6 mg/dL (0.2-1.3); Blood Urea Nitrogen 14 mg/dL (7-17); Calcium 9.4 mg/dL (8.4-10.2); Carbon Dioxide 21 mmol/L (22-30); Chloride 107 mmol/L (98-107); Estimated CRCL calculation 66 ml/min; Estimated Glomerular Filt Rate > 60; Glucose 92 mg/dL (65-110); Phosphorus 4.3 mg/dL (2.5-4.5); Potassium 4.2 mmol/L (3.4-5.0); Sodium 137 mmol/L (137-145)
[2021-10-06 08:00] VITALS: PULSE 58; O2SAT 100
[2021-10-06 08:50] VITALS: BP 172/80; PULSE 61; RESP 14; TEMP 36.8; O2SAT 100
[2021-10-06 08:54] VITALS: PULSE 61
[2021-10-06] MEDS: LIDOCAINE 5% PATCH 1 PATCH TRANSDERM (08:54)
[2021-10-06] MEDS: PANTOPRAZOLE SOD SESQUIHYDRATE 20 MG TAB PO (08:54)
[2021-10-06] MEDS: METOPROLOL SUCCINATE EXT REL 100 MG TABCR PO (08:54)
[2021-10-06] MEDS: NICOTINE (*PBKC) 2 MG GUM PO (08:55)
[2021-10-06] MEDS: ACETAMINOPHEN 325 MG TABLET 650 MG PO (09:25)
[2021-10-06] MEDS: polyethylene glycoL 3350 17 GM POWD.PACK PO (09:28)
[2021-10-06 12:00] VITALS: PULSE 53
--- NOTE | 2021-10-06 12:55 | PM.PNNEP ---
Progress Note: A&P Additional Plan 1. Elva has poorly controlled hypertension. This is mostly because she does not tolerate medications. Multiple hormone tests are pending. CTA shows no renal artery stenosis. She is doing pretty well with the metoprolol. No severe side effects. She is on metoprolol and irbesartan. Will add spironolactone. She should stop smoking. blood pressure seems a little more stable but still high. She can be discharged any time from the blood pressure standpoint. 2. Cigarette abuse. I encouraged her to stop smoking. 3. She should try to lose some weight. This would help her blood pressure as well without having to add more medication. 4. GERD. No symptoms of this right now. 5. Anxiety consider psychiatric input? Subjective Date/time seen: 10/06/21 12:55 Interval history: Patient feels about the same. Still has back pain. There with the patches. She has headache still. Exam Narrative: WDWN in NAD skin no rash head ncat lungs clear cor reg no rub abd BS+ nontender and soft ext no edema. Objective Data Vital Signs Vital Signs: Vital Signs - 24 hr 10/05/21 14:20 10/05/21 16:00 10/05/21 17:40 Temperature 36.9 C 36.9 C Pulse Rate 63 60 61 Respiratory Rate 16 14 Blood Pressure 169/85 H 167/76 H Pulse Oximetry 99 98 Oxygen Delivery 10/05/21 20:34 10/05/21 20:00 10/05/21 20:00 Temperature 36.1 C L Pulse Rate 60 54 L Respiratory Rate 20 Blood Pressure 181/97 H Pulse Oximetry 98 99 Oxygen Delivery Room Air 10/05/21 20:00 10/06/21 00:00 10/06/21 00:00 Temperature 36.1 C L Pulse Rate 60 57 L 62 Respiratory Rate 20 18 Blood Pressure 153/93 H Pulse Oximetry 98 99 Oxygen Delivery Room Air 10/06/21 04:00 10/06/21 04:00 10/06/21 08:54 Temperature 36.6 C Pulse Rate 54 L 53 L 61 Respiratory Rate 18 Blood Pressure 166/81 H Pulse Oximetry 98 Oxygen Delivery 10/06/21 08:50 10/06/21 08:00 Temperature 36.8 C Pulse Rate 61 Respiratory Rate 14 Blood Pressure 172/80 H Pulse Oximetry 100 100 Oxygen Delivery Room Air Intake/Output Intake/Output: Intake & Output 10/03/21 10/04/21 10/05/21 10/06/21 23:59 23:59 23:59 23:59 Intake Total 640 2650 960 240 Output Total 900 1000 2350 Balance -260 1650 -1390 240 Meds/Results Medications: Active Medications Generic Name Dose Route Start Last Admin Trade Name Freq PRN Reason Stop Dose Admin Acetaminophen 650 mg 10/03/21 22:44 10/06/21 09:25 Acetaminophen 325 Mg Tablet PO 650 mg Q6H PRN Administration Mild Pain (1-3) or Fever Buspirone HCl 2.5 mg/ 7.5 mg 10/06/21 21:00 Buspirone HCl 5 mg PO Q12HR [facility] Cyclobenzaprine HCl 7.5 mg 10/03/21 19:43 10/03/21 22:58 Cyclobenzaprine Hcl 5 Mg Tablet PO 7.5 mg HS PRN Administration Muscle Pain Hydralazine HCl 10 mg 10/03/21 15:13 10/05/21 21:48 Hydralazine Hcl 20 Mg/Ml Vial IV PUSH 10 mg Q6H PRN Administration Blood Pressure - High Irbesartan 150 mg 10/05/21 09:00 10/06/21 09:29 Irbesartan 150 Mg Tablet PO Not Given QAM KAVON Lidocaine 1 patch 10/04/21 11:55 10/06/21 08:54 Lidocaine 5% Patch TRANSDERM 1 patch DAILY KAVON Administration Metoprolol Succinate 100 mg 10/04/21 09:00 10/06/21 08:54 Metoprolol Succinate Ext Rel 100 Mg Tabcr PO 100 mg DAILY KAVON Administration Nicotine Polacrilex 2 mg 10/05/21 15:22 10/06/21 08:55 Nicotine (*Pbkc) 2 Mg Gum PO 2 mg PRN PRN Administration Nicotine Cravings Pantoprazole Sodium 20 mg 10/04/21 09:00 10/06/21 08:54 Pantoprazole Sod Sesquihydrate 20 Mg Tab PO 20 mg QAM KAVON Administration Polyethylene Glycol 17 gm 10/05/21 22:25 10/06/21 09:28 Polyethylene Glycol 3350 17 Gm Powd.Pack PO 17 gm QAM PRN Administration Constipation Simethicone 80 mg 10/04/21 20:45 10/04/21 20:49 Simethicone 80 Mg Tab.Chew PO 80 mg
[2021-10-06] MEDS: SPIRONOLACTONE 25 MG TABLET PO (13:40)
--- NOTE | 2021-10-06 13:41 | PM.DS ---
DS: Admitting Diagnosis Discharge Date 10/06/2021 1345 Admitting Diagnosis Hypertensive urgency DS: Discharge Diagnosis Discharge Diagnosis (1) Hypertensive urgency: Code(s): I16.0 - Hypertensive urgency Status: Acute (2) Gastro-esophageal reflux disease without esophagitis: Code(s): K21.9 - Gastro-esophageal reflux disease without esophagitis Status: Chronic (3) Anxiety: Code(s): F41.9 - Anxiety disorder, unspecified Status: Chronic DS: Summary Hospital Course Reason for hospitalization: Hypertensive urgency Hospital Course: Elva Berumen is a 60-year-old female, with medical history of hypertension, OA, and GERD. 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 Patient states that she has a history of hypertension and typically runs a blood pressure of 140s/70s, but over the last month since having injections into her knees she states her blood pressure has been uncontrolled.? She was taking amlodipine and Bystolic, but she quit taking the Bystolic because she states that was causing heartburn.? Patient was was placed on metoprolol and had improvement in her reflux.? Per patient's primary care records patient has had multiple issues/reactions to multiple blood pressure medications when has been difficult controlling her blood pressure.? Patient was referred to Nephrology for further evaluation of her hypertension and when the dairy technologist saw her, he noticed that her blood pressure significantly elevated brought her to the emergency room.? In the last month, she reported chronic headache, neck pain, left hip pain, bilateral knee pain and intermittent anxiety. She denies sleep disturbances, blurred vision, double vision, slurred speech, numbness, tingling, or weakness to extremities.?No chest pain, shortness a breath, lightheadedness, dizziness, or syncopal episodes.? Patient was admitted to the ICU and treated with IV hydralazine for blood pressure control. Nephrology followed. CTA chest/abd/pelvis was negative for renal artery stenosis. Urine aldosterone, free cortisol and metanephrines were collected and pending at discharge. She was continued on oral metoprolol XL 100 mg daily. She was started on irbesartan 150 mg PO daily and spironolactone 25 mg daily. Buspar 7.5 mg BID was added for persistent anxiety. The patient had intermittent cooperativity with medications due to concern for medication side effects. She was counseled on medications, when to seek care, diet and physical activity modifications. She was instructed on pain medications for arthritis, including tylenol arthritis BID and OTC lidoderm patches for pain. Her blood pressure improved, although was still elevated from goal at discharge. She denied chest pain, SOB, blurred vision, slurred speech or unilateral extremity weakness. She was counseled on nonpharmacology interventions for anxiety. Additionally, she was instructed to keep BP log daily and take to follow up appointments. She was counseled to take all medications as prescribed. She will follow up with PCP and nephrology in 1-2 weeks with repeat BMP in 1 week. Status at Discharge Cognitive/behavioral status at discharge: AOx3, mildly anxious mood and affect. Functional status at discharge: independent ambulation Overall status at discharge: patient is back to baseline Time Spent with Patient Time attestation: Total time spent providing and/or coordinating discharge services: Time spent: Greater than 30 minutes Exam Narrative: General: No acute distress, non toxic appearing Eyes: PERRL, no scleral icterus HEENT: NCAT, external ears normal, MMM Respiratory: No respiratory distress, Lungs CTA bilaterally, no wheezing Cardiovascular: RRR, no murmur, gallop, or rubs. Abdominal: Soft, nontender, non distended, no rebound or guarding Musculoskeletal: Moves all 4 extremities, no edema Neurological: A/Ox3, speech clear, no facial
[2021-10-06] MEDS: IRBESARTAN 150 MG TABLET PO (13:42)
== END 2021-10-06 14:10 | disposition home or self-care (01) ==
LOC: ANHED 13:17 → ANHIMU 15:23 → ANH3MEDSUR 23:52
PROVIDERS: Emergency Medicine; Internal Medicine Nephrology; Nurse Practitioner Adult Health; Physician Assistant; Admitting Provider Internal Medicine; Emergency Provider Emergency Medicine; PCP Family Medicine; Visit Provider Nurse Practitioner Family
DX: I16.0 Hypertensive urgency (principal); M54.9 Dorsalgia, unspecified; I10 Essential (primary) hypertension; K21.9 Gastro-esophageal reflux disease without esophagitis; F17.210 Nicotine dependence, cigarettes, uncomplicated; F41.9 Anxiety disorder, unspecified
CPT/HCPCS: 36415; 70450; 71275; 74174; 80048; 80053; 81001; 81025; 81050; 82043; 82088; 82530; 83835; 83970; 84100; 84244; 84300; 85025; 93005; 94762; 96374; 96376; 99285; A9270; G0378; J0360; Q9967

== ENCOUNTER → 2021-11-15 07:50 | Outpatient (CLI) | payer BC, OTHER, SELFPAY ==
--- NOTE | ~2021-11-15 | MMUS_ITS ---
EXAMINATION: MM diagnostic devonte LT w brenda, US breast LT limited HISTORY: Follow-up left breast mass TECHNIQUE: Additional 3-D tomosynthesis images of the left breast were performed and synthetic 2-D im ages were generated. CAD analysis was submitted and interpreted. High resolution Limited left breast ultrasound was performed. COMPARISON: Comparison to multiple prior studies sequentially, with oldest reviewed study dated 08/26. BREAST PARENCHYMAL COMPOSITION: Breast composed of scattered areas of fibroglandular density FINDINGS: MAMMOGRAPHIC FINDINGS: There are no suspicious masses, calcifications or architectural distortion in the left breast to sugg est malignancy. ULTRASOUND: Limited left breast ultrasound: At 12:00, 3.5 cm from the nipple, there is an oval hypoechoic mass me asuring 4 x 2 x 1 mm. IMPRESSION: 1. Likely benign 4 mm left breast mass at 12:00, 3.5 cm from nipple, most likely a complicated cyst o r benign intramammary lymph node. 2. Recommend 6 month follow-up bilateral mammogram and limited left breast ultrasound BI-RADS category 3, probably benign findings. Reviewed, dictated and finalized at location A. IMPRESSION: 1. Likely benign 4 mm left breast mass at 12:00, 3.5 cm from nipple, most likel y a complicated cyst or benign intramammary lymph node. 2. Recommend 6 month follow-up bilateral mammogram and limited left breast ultr asound BI-RADS category 3, probably benign findings.
== END ==
PROVIDERS: PCP Family Medicine; Visit Provider Nurse Practitioner Family
DX: R92.8 Other abnormal and inconclusive findings on diagnostic imaging of breast (principal)
CPT/HCPCS: 76642; 77061; 77065; G0279

== ENCOUNTER 2022-07-18 12:35 | Outpatient (CLI) | payer BC, OTHER, SELFPAY ==
--- NOTE | ~2022-07-18 | MMUS_ITS ---
EXAMINATION: MM diagnostic devonte BI w brenda, US breast BI complete HISTORY: Left breast mass. TECHNIQUE: Additional 3-D tomosynthesis images of the breasts were performed and synthetic 2-D images were generated. CAD analysis was submitted and interpreted. High resolution bilateral complete breas t ultrasound was performed. COMPARISON: Comparison to multiple prior studies sequentially, with oldest reviewed study dated 08/26. BREAST PARENCHYMAL COMPOSITION: Breast composed of scattered areas of fibroglandular density FINDINGS: MAMMOGRAPHIC FINDINGS: There is a small radiolucent circumscribed mass lower inner quadrant of the right breast, middle thir d, unchanged from prior studies. No sonographic correlate. There are no suspicious masses, calcificat ions or architectural distortion in the left breast to suggest malignancy. ULTRASOUND: Complete bilateral US of all 4 quadrants of the breasts and retroareolar region was reviewed. Right breast: Normal heterogeneous echotexture without focal solid or cystic mass. Left breast: At 6:00 near the nipple there is a 6 mm cyst. No suspicious left breast masses to sugges t malignancy. IMPRESSION: 1. No evidence for malignancy in either breast. Benign findings. 2. Routine yearly screening mammogram and regular clinical breast examination are recommended. BI-RADS Category 2: Benign finding(s). Reviewed, dictated and finalized at location A. IMPRESSION: 1. No evidence for malignancy in either breast. Benign findings. 2. Routine yearly screening mammogram and regular clinical breast examination a re recommended. BI-RADS Category 2: Benign finding(s).
== END 2022-07-18 12:36 | disposition home or self-care (01) ==
PROVIDERS: PCP Family Medicine; Visit Provider Nurse Practitioner Family
DX: R92.8 Other abnormal and inconclusive findings on diagnostic imaging of breast (principal)
CPT/HCPCS: 76641; 77062; 77066; G0279

== ENCOUNTER 2023-01-06 11:50 | Outpatient (CLI) | payer BC, OTHER, SELFPAY ==
--- NOTE | ~2023-01-06 | XR_ITS ---
EXAM: XR lumbar spine 6V w bending DATE: 01/06/2023 12:20 HISTORY: M54.50 - Low back pain, unspecified . COMPARISON: 04/16/2008. FINDINGS: Cholecystectomy clips. 5 nonrib-bearing lumbar-type vertebral bodies. Pedicles intact. Bila teral pars defects at L5. 2 mm retrolisthesis at L3-4 that increases slightly in extension. A 2 mm re trolisthesis emerges in extension at L1-2. Vertebral body heights preserved. Multilevel mild disc spa ce narrowing and marginal osteophytosis. Multilevel moderate facet sclerosis and hypertrophy. No frac ture or dislocation. Atherosclerotic aortic calcification with mild aneurysmal dilation up to 3 cm. IMPRESSION: 3 cm fusiform infrarenal abdominal aortic aneurysm, consider ultrasound of the aorta for further eval uation. Grade 1 dynamic listheses at L1-2 and L3-4. Bilateral pars defects at L5. Multilevel mild lumbar degenerative disc disease. Multilevel moderate mid and lower lumbar facet arthropathy Reviewed, dictated and finalized at location K. IMPRESSION: 3 cm fusiform infrarenal abdominal aortic aneurysm, consider ultrasound of the aorta for further evaluation. Grade 1 dynamic listheses at L1-2 and L3-4. Bilateral pars defects at L5. Multilevel mild lumbar degenerative disc disease. Multilevel moderate mid and lower lumbar facet arthropathy
--- NOTE | ~2023-01-06 | XR_ITS ---
EXAM: XR cervical spine 4-5V DATE: 01/06/2023 12:20 HISTORY: M54.2 - Cervicalgia . COMPARISON: None available. FINDINGS: Craniocervical association and atlantoaxial joint are aligned and demonstrate moderate deg enerative change. No prevertebral soft tissue swelling. Vertebral bodies are aligned. Cervical straig htening which can occur with positioning or muscle spasm. Vertebral body heights are maintained. Mult ilevel moderate disc space narrowing and marginal osteophytosis in the lower cervical spine. Multiple level moderate facet sclerosis and hypertrophy. Bilateral carotid bifurcation calcifications. IMPRESSION: Moderate lower cervical degenerative disc disease. Multilevel moderate facet arthropathy. Reviewed, dictated and finalized at location K. IMPRESSION: Moderate lower cervical degenerative disc disease. Multilevel moder ate facet arthropathy.
[2023-01-06 12:51] LABS: Hematocrit 40.8 % (37.0-47.0); Hemoglobin 13.3 g/dL (12.0-15.0); Mean Corpuscular HGB Conc 32.6 g/dl (32-36); Mean Corpuscular Hemoglobin 30.9 pg (26-34); Mean Corpuscular Volume 94.7 fl (80-100); Mean Platelet Volume 9.3 fl (7.4-10.4); Platelet Count Result 248 k/mm3 (150-375); Red Blood Count 4.31 M/mm3 (4.2-5.4); Red Cell Distribution Width 13.2 % (11.5-14.5); White Blood Count 5.1 K/mm3 (4.5-10.0)
[2023-01-06 13:00] LABS: Cholesterol 292 mg/dL (0-200); HDL Direct 46 mg/dL; Triglycerides 313 mg/dL (<150)
[2023-01-06 13:11] LABS: LDL Cholesterol Direct 168 mg/dL
[2023-01-06 14:19] LABS: Vitamin D 25 Hydroxy 55.8 ng/mL
== END 2023-01-06 11:51 | disposition home or self-care (01) ==
PROVIDERS: PCP Family Medicine; Visit Provider Nurse Practitioner Family
DX: E78.5 Hyperlipidemia, unspecified (principal); E55.9 Vitamin D deficiency, unspecified; F41.9 Anxiety disorder, unspecified; I16.0 Hypertensive urgency; M54.50 Low back pain, unspecified; M54.2 Cervicalgia; M51.36 Other intervertebral disc degeneration, lumbar region; I71.40 Abdominal aortic aneurysm, without rupture, unspecified
CPT/HCPCS: 36415; 72050; 72114; 80061; 82306; 84443; 85027

== ENCOUNTER → 2023-01-15 10:54 | Outpatient (CLI) | payer BC, OTHER, SELFPAY ==
--- NOTE | ~2023-01-15 | US_ITS ---
EXAMINATION: US aorta DATE: 01/15/2023 12:17 CDT INDICATION: Abdominal aortic aneurysm seen on x-ray. TECHNIQUE: Grayscale, color Doppler, and pulsed Doppler images of the aorta and common iliac arteries were obtained. COMPARISON: Lumbar spine series dated 01/06/2023. FINDINGS: The proximal aorta measures 2.5 cm greatest sagittal dimension. The mid aorta measures 1.8 cm greates t sagittal dimension. The distal aorta measures 1.6 cm greatest sagittal dimension. The right common internal iliac artery measures 1 cm. The left common iliac artery measures 1 cm. IMPRESSION: 1. Normal caliber aorta without aneurysm. Reviewed, dictated and finalized at location A.
== END ==
PROVIDERS: PCP Family Medicine; Visit Provider Nurse Practitioner Family
DX: I71.40 Abdominal aortic aneurysm, without rupture, unspecified (principal)
CPT/HCPCS: 76775

== ENCOUNTER 2023-01-27 12:44 | Outpatient (CLI) | payer BC, OTHER, SELFPAY ==
--- NOTE | ~2023-01-27 | MR_ITS ---
EXAMINATION: MR cervical spine wo con DATE: 01/27/2023 13:35 INDICATION: Other cervical disc degeneration, unspecified. TECHNIQUE: Magnetic resonance imaging (MRI) of the cervical spine was performed without intravenous c ontrast. COMPARISON: Cervical spine MRI 01/20/2017 FINDINGS: There is 3 degrees dextrocurvature of cervical spine. There is mild chronic anterior wedgin g of C3-C6 vertebral bodies. There is mildly decreased disc height at C4-C5, moderately decreased dis c height at C5-C6, and severely decreased disc height at C6-C7. The spinal cord signal intensity is n ormal. There is a right mastoid effusion. The following disc levels are specifically discussed: C2-C3: The disc does not extend beyond the endplate margin. There is no uncovertebral joint osteoarth ritis. There is mild right and moderate left facet joint osteoarthritis. There is no neural foraminal stenosis. There is no central canal stenosis. C3-C4: The disc does not extend beyond the endplate margin. There is no uncovertebral joint osteoarth ritis. There is mild right and moderate left facet joint osteoarthritis. There is no neural foraminal stenosis. There is no central canal stenosis. C4-C5: The disc is bulging. There is moderate bilateral uncovertebral joint osteoarthritis. There is mild right and moderate left facet joint osteoarthritis. There is mild right and moderate left neural foraminal stenosis. There is mild central canal stenosis. C5-C6: There is bulging. There is severe bilateral uncovertebral joint osteoarthritis. There is mild bilateral facet joint osteoarthritis. There is moderate bilateral neural foraminal stenosis. There is moderate central canal stenosis with ventral and dorsal indentation of the spinal cord. C6-C7: The disc is bulging. There is moderate right and severe left uncovertebral joint osteoarthriti s. There is severe right and moderate left facet joint osteoarthritis. There is moderate right and se justine left neural foraminal stenosis. There is mild central canal stenosis. C7-T1: The disc does not extend beyond the endplate margin. There is no uncovertebral joint osteoarth ritis. There is moderate bilateral facet joint osteoarthritis. There is mild bilateral neural foramin al stenosis. There is no central canal stenosis. IMPRESSION: 1. Severe cervical spondylosis, worsened from 01/20/2017. Reviewed, dictated and finalized at location E.
--- NOTE | ~2023-01-27 | MR_ITS ---
EXAMINATION: MR lumbar spine wo con DATE: 01/27/2023 13:35 INDICATION: Other intervertebral disc degeneration, lumbar spine. TECHNIQUE: Magnetic resonance imaging (MRI) of the lumbar spine was performed without intravenous con trast. Sequences included sagittal T2-weighted FSE, sagittal T2-weighted FS FSE, sagittal T1-weighted FSE, and axial T2-weighted FSE. COMPARISON: Lumbar spine radiographs 01/06/2023 FINDINGS: Bone alignment is normal. There is mild chronic anterior wedging of T11-L1 vertebral bodies . There is mildly decreased disc height at L1-L2, L2-L3, and L3-L4. The distal spinal cord signal int ensity is normal. The conus medullaris is at L1. The following disc levels are specifically discussed : L1-L2: The disc is bulging. There is mild bilateral facet joint osteoarthritis. There is mild right n eural foraminal stenosis. There is mild central canal stenosis. L2-L3: The disc is bulging and has an annular fissure. There is moderate right and mild left facet glenn int osteoarthritis. There is mild bilateral neural foraminal stenosis. There is mild central canal st enosis. L3-L4: The disc is bulging and has an annular fissure. There is severe bilateral facet joint osteoart hritis. There is mild right and moderate left neural foraminal stenosis. There is mild central canal stenosis. L4-L5: The disc is bulging and has an annular fissure. There is severe bilateral facet joint osteoart hritis. There is moderate bilateral neural foraminal stenosis. There is moderate central canal stenos is. L5-S1: The disc is bulging and has an annular fissure. There is severe bilateral facet joint osteoart hritis. There is mild bilateral neural foraminal stenosis. There is mild central canal stenosis. IMPRESSION: 1. Moderate lumbar spondylosis. Reviewed, dictated and finalized at location E.
== END 2023-01-27 12:45 | disposition home or self-care (01) ==
LOC: ANHIMG 12:46
PROVIDERS: PCP Family Medicine; Visit Provider Nurse Practitioner Family
DX: M43.02 Spondylolysis, cervical region (principal); M43.06 Spondylolysis, lumbar region
CPT/HCPCS: 72141; 72148

== ENCOUNTER 2023-05-15 09:50 | Outpatient (CLI) | payer BC, OTHER, SELFPAY ==
--- NOTE | 2023-05-15 11:00 | NEURO_ITS ---
Impression: # Complains of upper extremity/neck discomfort. # Early Carpal Tunnel Syndrome bilaterally. # No ulnar neuropathy. # Normal needle/EMG exam. Nerve Conduction Studies Anti Sensory Summary Table Stim Site NR Peak (ms) P-T Amp (?V) Site1 Site2 Delta-P (ms) Dist (cm) Srinivasan (m/s) Left Median Anti Sensory (2-3nd Digit) Wrist 3.7 55.2 Wrist 2-3nd Digit 3.7 14.0 38 Wrist 3.6 55.3 Wrist 2-3nd Digit 3.7 14.0 38 Right Median Anti Sensory (2-3nd Digit) Wrist 3.8 69.1 Wrist 2-3nd Digit 3.8 14.0 37 Wrist 3.7 47.9 Wrist 2-3nd Digit 3.8 14.0 37 Left Radial Anti Sensory (Base 1st Digit) Wrist 2.3 33.2 Wrist Base 1st Digit 2.3 0.0 Right Radial Anti Sensory (Base 1st Digit) Wrist 2.5 19.7 Wrist Base 1st Digit 2.5 0.0 Left Ulnar Anti Sensory (5th Digit) Wrist 2.5 63.7 Wrist 5th Digit 2.5 14.0 56 Right Ulnar Anti Sensory (5th Digit) Wrist 2.6 63.4 Wrist 5th Digit 2.6 14.0 54 Motor Summary Table Stim Site NR Onset (ms) O-P Amp (mV) Site1 Site2 Delta-0 (ms) Dist (cm) Srinivasan (m/s) Left Median Motor (Abd Poll Brev) Wrist 3.7 3.4 Elbow Wrist 5.2 28.0 54 Elbow 8.9 2.5 Right Median Motor (Abd Poll Brev) Wrist 3.9 3.8 Elbow Wrist 4.8 27.0 56 Elbow 8.7 3.9 Left Ulnar Motor (Abd Dig Minimi) Wrist 2.3 6.5 A Elbow Wrist 4.8 28.0 58 A Elbow 7.1 4.8 Right Ulnar Motor (Abd Dig Minimi) Wrist 2.5 5.2 A Elbow Wrist 4.7 28.0 60 A Elbow 7.2 4.3 F Wave Studies NR F-Lat (ms) L-R F-Lat (ms) Left Median (Mrkrs) (Abd Poll Brev) 27.64 0.02 Right Median (Mrkrs) (Abd Poll Brev) 27.67 0.02 Left Ulnar (Mrkrs) (Abd Dig Min) 27.42 0.00 Right Ulnar (Mrkrs) (Abd Dig Min) 27.42 0.00 EMG Side Muscle Nerve Root Ins Act Fibs Amp Dur Recrt Comment Right 1stDorInt Ulnar C8-T1 Nml Nml Nml Nml Nml Right Ext Indicis Radial (Post Int) C7-8 Nml Nml Nml Nml Nml Right Ext Digitorum Radial (Post Int) C7-8 Nml Nml Nml Nml Nml Right BrachioRad Radial C5-6 Nml Nml Nml Nml Nml Right PronatorTeres Median C6-7 Nml Nml Nml Nml Nml Right Abd Poll Brev Median C8-T1 Nml Nml Nml Nml Nml Left 1stDorInt Ulnar C8-T1 Nml Nml Nml Nml Nml Left Ext Indicis Radial (Post Int) C7-8 Nml Nml Nml Nml Nml Left Ext Digitorum Radial (Post Int) C7-8 Nml Nml Nml Nml Nml Left BrachioRad Radial C5-6 Nml Nml Nml Nml Nml Left PronatorTeres Median C6-7 Nml Nml Nml Nml Nml Left Abd Poll Brev Median C8-T1 Nml Nml Nml Nml Nml MTDD
== END 2023-05-15 09:51 | disposition home or self-care (01) ==
LOC: ANHNEURO 09:51
PROVIDERS: PCP Family Medicine; Visit Provider Physician Assistant
DX: G56.03 Carpal tunnel syndrome, bilateral upper limbs (principal)
CPT/HCPCS: 95886; 95911

== ENCOUNTER → 2023-05-15 12:24 | Outpatient (CLI) | payer BC, OTHER, SELFPAY ==
--- NOTE | ~2023-05-15 | DEXA_ITS ---
Bone Density Report Name: EWELINA CHAIREZ Age: 62 Sex: Female Ethnicity: White Date of : 1960 Indication: postmenopausal; screening for osteoporosis; height loss; Referring Provider: Johnna Bui Study: Bone densitometry was performed. Exam Date: May 15, 2023 Accession number: [id number] Bone Density: Region BMD T-score Z-score Classification AP Spine (L1, L2) 1.105 1.1 2.8 Normal Femoral Neck (Left) 0.784 -0.6 0.9 Normal Total Hip (Left) 0.902 -0.3 0.9 Normal Femoral Neck (Right) 0.799 -0.5 1.0 Normal Total Hip (Right) 0.907 -0.3 0.9 Normal Total Hip Mean 0.905 -0.3 0.9 Normal World Health Organization criteria for BMD impression classify patients as: Normal (T-score at or above -1.0), Osteopenia (T-score between -1.0 and -2.5), or Osteoporosis (T-score at or below -2.5). 10-year Fracture Risk: FRAX not reported because: All T-scores for Spine Total, Hip Total, Femoral Neck at or above -1.0 Clinical Information Provided by Patient: Smokes Has used the following medications: Vitamin D, Calcium, MTV Patient maximum height was 62 Menopause Age: 49 Does not regularly consume dairy products Drinks caffeinated beverages Onset of menses at age 8 Number of children 1 Impression: The patient has normal bone mass. The patient has risk factors, including: smoking. Discussion: BONE DENSITY IS ABOVE THE MINIMUM DESIRABLE LEVEL AT ALL SKELETAL SITES TESTED. This patient?s bone mineral density is above the minimum desirable level (T-score -1.0 or better) at all sites measured. The patient should follow a healthful lifestyle (good nutrition with adequate calcium and vitamin D, and appropriate weight-bearing exercise). Follow-Up: Consider repeating this study in 5 years or sooner if there is some new clinical indication. Reported by: MAGDA on 05/15/2023 12:51:00 PM. Reviewed, dictated and finalized at location [facility]
== END ==
PROVIDERS: PCP Family Medicine; Visit Provider Nurse Practitioner Family
DX: N95.0 Postmenopausal bleeding (principal); Z78.0 Asymptomatic menopausal state; Z13.820 Encounter for screening for osteoporosis
CPT/HCPCS: 77080

== ENCOUNTER 2023-06-11 14:42 | Outpatient (CLI) | payer BC, OTHER, SELFPAY ==
[2023-06-11 16:26] LABS: Urine Cotinine NEGATIVE
== END 2023-06-11 14:43 | disposition home or self-care (01) ==
LOC: ANHLAB 14:44
PROVIDERS: PCP Family Medicine; Visit Provider Orthopaedic Surgery
DX: Z72.0 Tobacco use (principal)
CPT/HCPCS: 80307

== ENCOUNTER 2023-07-17 09:55 | Outpatient (CLI) | payer BC, OTHER, SELFPAY ==
--- NOTE | 2023-07-17 11:37 | ECG_ITS ---
Measurements Intervals [place] Rate: 71 P: 33 VA: 174 QRS: 36 QRSD: 70 T: 30 QT: 367 QTc: 400 Interpretive Statements SINUS RHYTHM BASELINE ARTIFACT- I, II, III, AVR, AVL NORMAL ECG COMPARED TO ECG 10/03/2021 12:13:46 NO SIGNIFICANT CHANGES Electronically Signed On 07-17-2023 12:48:49 CDT by Dayo James D.O.
[2023-07-17 12:14] LABS: Basophils Percent Auto 0.8 % (0.2-1.2); Eosinophils Absolute Auto 0.2 K/mm3 (0-0.3); Eosinophils Percent Auto 3.6 % (0-4.4); Hematocrit 42.3 % (37.0-47.0); Hemoglobin 13.2 g/dL (12.0-15.0); Immature Granulocyte Absolute 0.01 K/mm3 (0.00-0.031); Immature Granulocyte Percent A 0.2 % (0-0.5); Lymphocytes Absolute Auto 1.73 K/mm3 (0.9-3.2); Lymphocytes Percent Auto 33.1 % (18.3-44.2); Mean Corpuscular HGB Conc 31.2 g/dl (32-36); Mean Corpuscular Volume 96.1 fl (80-100); Monocytes Absolute Auto 0.3 K/mm3 (0.1-0.6); Monocytes Percent Auto 5.7 % (2.6-8.5); Neutrophils Percent Auto 56.6 % (45.5-73.1); Platelet Count Result 262 k/mm3 (150-375); Red Cell Distribution Width 13.4 % (11.5-14.5); White Blood Count 5.2 K/mm3 (4.5-10.0)
[2023-07-17 12:15] LABS: Appearance Urine Clear (Clear); Bilirubin Urine Negative (Negative); Blood Urine Negative (Negative); Color Urine Yellow (Yellow); Glucose Urine UA Negative (Negative); Ketones Urine Negative (Negative); Leukocyte Esterase Ur Negative LEU/UL (Negative); Nitrate Urine Negative (Negative); Protein Urine Negative (Negative); Urobilinogen Urine 0.2 mg/dL (<2.0); pH Urine 6.5 (5.0-9.0)
[2023-07-17 12:17] LABS: Add Urine Microscopic? NO; Specific Grav Ur 1.004 (1.001-1.035)
[2023-07-17 12:22] LABS: Urine Cotinine NEGATIVE
[2023-07-17 12:25] LABS: INR 0.8; Prothrombin Time 11.8 Seconds (11.1-14.7)
[2023-07-17 12:26] LABS: Albumin Level 4.6 g/dL (3.5-5.1); Anion Gap 5 mmol/L (8-16); Blood Urea Nitrogen 13 mg/dL (7-17); Calcium 10.1 mg/dL (8.4-10.2); Carbon Dioxide 29 mmol/L (22-30); Chloride 104 mmol/L (98-107); Estimated Glomerular Filt Rate > 60; Glucose 90 mg/dL (65-110); Partial Thromboplastin Time 27.4 Seconds (22.3-36.8); Potassium 4.4 mmol/L (3.4-5.0); Sodium 138 mmol/L (137-145)
[2023-07-17 13:06] LABS: Hemoglobin A1C 5.4 % (<5.7)
[2023-07-17 13:26] LABS: MRSA (PCR) NOT DETECTED (NOT DETECTE)
== END 2023-07-17 09:56 | disposition home or self-care (01) ==
LOC: ANHSURGERY 10:01
PROVIDERS: PCP Family Medicine; Visit Provider Orthopaedic Surgery
DX: Z01.818 Encounter for other preprocedural examination (principal); M17.11 Unilateral primary osteoarthritis, right knee
CPT/HCPCS: 80048; 80307; 82040; 83036; 85025; 85610; 85730; 87641; 93005

== ENCOUNTER 2023-08-14 00:33 | Day surgery (SDC) | payer BC, OTHER, SELFPAY ==
--- NOTE | 2023-07-17 10:02 | PC.NURSE ---
Report to the Outpatient Waiting Room, entrance under the green pavilion located off [facility], at time __6:00AM on date ___08/14/23____. Planned Procedure Time: ___7:30AM . Time changes happen often and if your time is changed the preop area will call you the afternoon before. - You and your visitor will be asked to self-screen and do not enter if you have any COVID symptoms. - A mask is optional within the hospital at this time. Patients may have clear liquids (water, carbonated beverages, clear teas, apple juice) until 3 hours prior to surgery with a maximum of 20 ounces. - No food from midnight until time of surgery. Take the following medications with a SIP of water the morning of surgery: NONE DO NOT STOP ANY OF YOUR OTHER PRESCRIPTION MEDICATIONS PRIOR TO SURGERY ?EXCEPT THE FOLLOWING Medications to discontinue per physician ___HOLD ALL VITAMINS/SUPPLEMENTS 7 DAYS PRE-OP PER DR WESLEY Date to take last dose___07/30/23 Please no make-up, nail serbian, hairspray, perfume, deodorant, or body powder the day of surgery. No jewelry (including any body piercings) or valuables the day of surgery, leave them at home. Please take a shower or bath the night before, or the morning of, surgery with an antibacterial soap. Wear comfortable, loose fitting clothing. - Jewelry must be removed prior to entering the operating room. Rings and piercings that are not removed may be cut off. - The hospital will not accept responsibility for valuables. - Please leave all valuables, including medications, at home the day of surgery. If you are going home after surgery, a licensed team driver must drive you home. - NO public transportation without another adult if you receive anesthesia. - We recommend that an adult stay with you for 24 hours following discharge. - We also recommend that you do not drive, make important decision, drink alcoholic beverages, or take any drugs that were not prescribed by your health care provider for at least 24 hours after your discharge time. Follow any additional instructions given to you from your surgeon. If you or anyone in your household have experienced Covid symptoms in the past week, please notify your surgeon or the nurse liaison at the phone number below for possible testing. Telephone instructions given to ____PATIENT and asked if any additional questions and then verbalized understanding. Patient advised to call surgeon office or pre surgery nurse liaison [phone] if any additional questions.
[2023-07-17 10:31] VITALS: BP 186/94; PULSE 81; RESP 16; TEMP 36.6; O2SAT 100; BMI 30.7
[2023-08-14 06:24] VITALS: BP 198/95; PULSE 73; RESP 18; TEMP 36.2; O2SAT 99
[2023-08-14] MEDS: LACTATED RINGERS 1,000 ML 30 ML IV CONT (06:45)
[2023-08-14] MEDS: TRANEXAMIC ACID 1,000MG/ISO100 1,000 MG/100 ML BAG 200 MG IVPB (06:50)
[2023-08-14] MEDS: ACETAMINOPHEN 500 MG TABLET 1000 MG PO (06:54)
--- NOTE | 2023-08-14 06:54 | WPDANESEPPF ---
Anes - Initial Pre Proc Eval Procedure: Operation Date: 08/14/23 07:30 Proposed Procedures p Right Total Knee Arthroplasty - Edwin Barnard MD Date/Time: 08/14/23 06:54 Surgeon: Edwin Barnard MD Pre Op Diagnosis: R knee djd Patient Data Age: 62 Gender: F Height: 1.55 m Weight: 74 kg Last Vital Signs Temp 97.1 F L 08/14/23 06:24 Pulse 73 08/14/23 06:24 Resp 18 08/14/23 06:24 BP 198/95 H 08/14/23 06:24 Pulse Ox 99 08/14/23 06:24 O2 Del Method Room Air 08/14/23 06:24 Allergies Allergy/AdvReac Type Severity Reaction Status Date / Time latex Allergy Unknown Swelling Verified 08/14/23 06:29 Penicillins Allergy Unknown Rash Verified 08/14/23 06:29 azithromycin AdvReac Intermediate Nausea Verified 08/14/23 06:29 ezetimibe [From Zetia] AdvReac Unknown Cramping Verified 08/14/23 06:29 of the Muscles Pxoljov-ZJO-WtO Reductase AdvReac Unknown Muscle pain Verified 08/14/23 06:29 Inhibitor [Lfivgix-Fnt-Bch Reductase Inhibitor] triamcinolone [From Kenalog] AdvReac HTN, Verified 08/14/23 06:29 NAUSEA, ANXIETY Home Medications Medication Instructions Recorded Confirmed Type cyclobenzaprine 10 mg tablet 10 mg PO TID PRN muscle spasm #30 07/12/23 07/20/23 Rx tabs cholecalciferol (vitamin D3) 50 50 mcg PO DAILY 07/17/23 08/14/23 History mcg (2,000 unit) capsule chromium picolinate 200 mcg capsule 200 mcg PO DAILY 07/17/23 08/14/23 History cyanocobalamin (vitamin B-12) 5,000 mcg PO DAILY 07/17/23 08/14/23 History 5,000 mcg capsule krill 1 cap PO DAILY 07/17/23 08/14/23 History cey-cz-4-jje-rsu-wwibwkngenxgf 300 mg-90 mg-24 mg-50 mg capsule (krill oil) lactobacillus combination no.8 3 3 cell PO DAILY 07/17/23 08/14/23 History billion cell capsule losartan 50 mg tablet 50 mg PO QAM 07/17/23 08/14/23 History magnesium 500 mg tablet 15 mg PO DAILY 07/17/23 08/14/23 History omeprazole 20 mg capsule,delayed 20 mg PO DAILY PRN Indigestion 07/17/23 08/14/23 History release psyllium husk 0.4 gram capsule 0.4 g PO DAILY 07/17/23 08/14/23 History (Metamucil) Patient hx anesthesia problems: none Family hx anesthesia problems: none Results Review: All pre-operative results and documents have been reviewed as part of the pre-operative evaluation. [facility] Past Medical History Medical History Atherosclerosis of renal artery BMI 26.0-26.9,adult BMI 28.0-28.9,adult Diverticulosis Gastro-esophageal reflux disease without esophagitis Hx of seizure disorder Tobacco abuse Uncontrolled hypertension Surgical History Surgical History Status post left knee surgery Family History Family History Grandparent Family history of heart disease in male family member before age 55 Father Hypertension Lung cancer Mother Hypertension Glaucoma Sibling Diabetes mellitus Hypertension Glaucoma Other Family history of arthritis Social History Social History Smoking packs per day: 0.5 Smoking cigarettes per day: 10.0 Years smoked: 48 Smoking pack-years: 24.00 Smoking status: Former smoker Tobacco type: cigarettes Second hand tobacco smoke exposure: Yes Smoking end date: 05/31/23 Additional smoking assessment comments: JUST QUIT FOR RTKA Alcohol intake: current Drinks per week: 2 Substance use: never Substance use type: does not use Lack of Transportation: No Lack of Food: Never True Current Housing: I Have Housing Concerned About Future Housing: No Difficulty Paying Gas/Electric Bills: No Difficulty Paying for Meds: No Currently Unemployed: No Education: Associate Degree Difficulty w/ Childcare or Family Care: No Living arr
[2023-08-14 06:55] VITALS: BP 198/102
--- NOTE | 2023-08-14 07:12 | WPDHPUPDATE1 ---
History and Physical Update Update Date/Time: 08/14/23 07:12 History and Physical has been reviewed, including an updated exam of the patient. There are NO changes in the patient's condition. Risks, benefits, and alternatives have been discussed and questions answered. Patient agrees to proceed with procedure.
[2023-08-14 07:20] VITALS: BP 205/97
== END 2023-08-14 07:40 | disposition home or self-care (01) ==
PROVIDERS: PCP Family Medicine; Visit Provider Orthopaedic Surgery
PROC: (CPT 27447; principal; 2023-08-14 07:30)
DX: M17.11 Unilateral primary osteoarthritis, right knee (principal); Z53.9 Procedure and treatment not carried out, unspecified reason
CPT/HCPCS: 36415; 86850; 86900; 86901; 99213; A9270; C1713; G0463; J0171; J0690; J1170; J1885; J2250; J2270; J2795; J3010; J3370; J7120

== ENCOUNTER 2023-08-16 13:35 | Observation (INO) | payer BC, OTHER, SELFPAY ==
[2023-08-16] VITALS (25 sets, daily range): BP systolic 139–230; BP diastolic 76–188; PULSE 59–90; RESP 10–21; TEMP 36.4–36.7; O2SAT 96–100; BMI 30.9
--- NOTE | ~2023-08-16 | CT_ITS ---
EXAMINATION: CT brain wo con DATE: 08/16/2023 16:21 INDICATION: Headache TECHNIQUE: Computed tomography (CT) of the head was performed without intravenous contrast. Sagittal and coronal reconstructions were performed. The mA was adjusted according to patient size. Iterative reconstruction technique was employed. The dose-length product was 605.33 mGy-cm. COMPARISON: None FINDINGS: Old lacunar infarct at the anterior limb of the right internal capsule. Additional small old lacunar infarct in the left frontal lobe miramontes radiata. No acute intracranial hemorrhage, acute infarction o r abnormal extra axial fluid collection. Ventricles are normal and symmetric. No mass/mass effect. Th e orbitsand paranasal sinuses normal. Small left mastoid effusion. IMPRESSION: 1. Small old lacunar infarcts at the anterior limb of the right internal capsule and in the left fron fredi lobe miramontes radiata. No other acute intracranial process. Reviewed, dictated and finalized at location A. IMPRESSION: 1. Small old lacunar infarcts at the anterior limb of the right internal capsul e and in the left frontal lobe miramontes radiata. No other acute intracranial proc ess.
--- NOTE | ~2023-08-16 | US_ITS ---
EXAMINATION: US retroperitoneal duplex ltd DATE: 08/17/2023 15:19 INDICATION: Hypertensive urgency. TECHNIQUE: Multiple grayscale, color Doppler, and pulsed Doppler images of the kidneys and renal heriberto donell were obtained. COMPARISON: Abdomen CTA 10/03/21 FINDINGS: The aorta peak systolic velocity is 106 cm/s. The right renal artery peak systolic velocity is 98 cm/ s in the proximal segment, 88 cm/s in the mid segment, and 89 cm/s in the distal segment. The left re nal artery peak systolic velocity is 65 cm/s in the proximal segment, 189 cm/s in the mid segment, an d 141 cm/s in the distal segment. IMPRESSION: 1. No Doppler evidence of renal artery stenosis. Reviewed, dictated and finalized at location E.
--- NOTE | 2023-08-16 13:47 | ECG_ITS ---
SEE SCANNED COPY FOR CONFIRMED REPORT MTDD
--- NOTE | 2023-08-16 13:47 | ED.RECABL ---
HPI - Recheck/Abnormal Lab/Rx General Chief Complaint: Recheck/Abnormal Lab/Rx <Robin Pinto APRN - Last Filed: 09/05/23 14:39> Stated Complaint: ELEVATED BP <Robin Pinto APRN - Last Filed: 09/05/23 14:39> Time Seen by Provider: 08/16/23 15:55 <Robin Pinto APRN - Last Filed: 09/05/23 14:39> Focused HPI: GENERAL: Well-appearing, well-nourished, and in no acute distress. HEAD: Normocephalic, atraumatic. CHEST: Clear to auscultation. No respiratory distress. HEART: Regular rate and rhythm. NEURO: Alert and oriented x3. Patient screened in triage and initial orders placed. Additional care and disposition to be based upon diagnostic testing and treatment. 62-year-old history of hypertension who is on 50 mg of losartan daily presents to the emergency room for evaluation of hypertension. Patient is scheduled to have a right total knee procedure last week but was delayed due to increased blood pressure readings. States that she had a follow-up with her primary care doctor today to be cleared for surgery was found the blood pressure of 212/107. Patient able to monitor blood pressures at home, states that they routinely elevated. Patient is instructed to take additional started. Patient admits to headache, occasional lightheadedness. Patient denies chest pain, shortness of breath, palpitations or syncope. Denies any vision or hearing changes. Denies swelling over lower extremities. <Robin Pinto APRN - Last Filed: 09/05/23 14:39> History of Present Illness HPI narrative: [age] old female presented emergency department for evaluation for hypertension. <Sean Veliz MD - Last Filed: 09/13/23 13:02> Related Data Home Medications: Home Medications Medication Instructions Recorded Confirmed cholecalciferol (vitamin D3) 50 50 mcg PO DAILY 07/17/23 09/05/23 mcg (2,000 unit) capsule cyanocobalamin (vitamin B-12) 5,000 mcg PO DAILY 07/17/23 09/05/23 5,000 mcg capsule krill 1 cap PO 2XW 07/17/23 09/05/23 wze-qj-7-mva-kor-aegtnoemctsfa 300 mg-90 mg-24 mg-50 mg capsule (krill oil) lactobacillus combination no.8 3 3 cell PO DAILY 07/17/23 09/05/23 billion cell capsule magnesium 500 mg tablet 15 mg PO DAILY 07/17/23 09/05/23 omeprazole 20 mg capsule,delayed 20 mg PO DAILY PRN Indigestion 07/17/23 09/05/23 release psyllium husk 0.4 gram capsule 0.4 g PO DAILY 07/17/23 09/05/23 (Metamucil) losartan 50 mg tablet 100 mg PO QAM 08/23/23 09/05/23 <Robin Pinto INSURANCE ADVISOR - Last Filed: 09/05/23 14:39> Allergies/Adverse Reactions: Allergies Allergy/AdvReac Type Severity Reaction Status Date / Time latex Allergy Unknown Swelling Verified 09/05/23 11:23 Penicillins Allergy Unknown Rash Verified 09/05/23 11:23 azithromycin AdvReac Intermediate Nausea Verified 09/05/23 11:23 ezetimibe [From Zetia] AdvReac Unknown Cramping Verified 09/05/23 11:23 of the Muscles Wfrxlns-ZMX-HsT Reductase AdvReac Unknown Muscle pain Verified 09/05/23 11:23 Inhibitor [Dvspbhu-Tbz-Jky Reductase Inhibitor] triamcinolone [From Kenalog] AdvReac HTN, Verified 09/05/23 11:23 NAUSEA, ANXIETY <Robin Pinto, INSURANCE ADVISOR - Last Filed: 09/05/23 14:39> Review of Systems Review of Systems: All systems reviewed & are unremarkable except as noted in HPI and below <Sean Veliz MD - Last Filed: 09/13/23 13:02> [facility] Past Medical History Medical History: Medical History Anxiety Atherosclerosis of renal artery Diastolic dysfunction Diverticulosis Gastro-esophageal reflux disease without esophagitis Hyperlipidemia Hypertension Seizure disorder Tobacco abuse <Robin Pinto APRN - Last Filed: 09/05/23 14:39> Surgical History Surgical History: Surgical History History of arthroplasty of left knee (02/2022) History of
[2023-08-16 14:35] LABS: Appearance Urine Clear (Clear); Bilirubin Urine Negative (Negative); Blood Urine Negative (Negative); Color Urine Yellow (Yellow); Glucose Urine UA Negative (Negative); Ketones Urine Negative (Negative); Leukocyte Esterase Ur Negative LEU/UL (Negative); Nitrate Urine Negative (Negative); Protein Urine Negative (Negative); Specific Grav Ur 1.005 (1.001-1.035); Urobilinogen Urine 0.2 mg/dL (<2.0)
[2023-08-16 14:36] LABS: Basophils Percent Auto 0.9 % (0.2-1.2); Eosinophils Absolute Auto 0.1 K/mm3 (0-0.3); Eosinophils Percent Auto 2.6 % (0-4.4); Hemoglobin 12.8 g/dL (12.0-15.0); Immature Granulocyte Absolute 0.02 K/mm3 (0.00-0.031); Immature Granulocyte Percent A 0.4 % (0-0.5); Lymphocytes Absolute Auto 1.54 K/mm3 (0.9-3.2); Lymphocytes Percent Auto 33.2 % (18.3-44.2); Mean Corpuscular Volume 93.9 fl (80-100); Mean Platelet Volume 9.4 fl (7.4-10.4); Monocytes Absolute Auto 0.2 K/mm3 (0.1-0.6); Monocytes Percent Auto 4.5 % (2.6-8.5); Neutrophils Absolute Auto 2.7 K/mm3 (1.3-6.7); Neutrophils Percent Auto 58.4 % (45.5-73.1); Platelet Count Result 266 k/mm3 (150-375); Red Blood Count 4.26 M/mm3 (4.2-5.4); Red Cell Distribution Width 13.3 % (11.5-14.5); White Blood Count 4.6 K/mm3 (4.5-10.0)
[2023-08-16 14:40] LABS: Add Urine Microscopic? NO
[2023-08-16 14:46] LABS: Alanine Aminotransferase 21 U/L (6-35); Albumin Level 4.8 g/dL (3.5-5.1); Alkaline Phosphatase 83 U/L (38-126); Anion Gap 8 mmol/L (4-12); Aspartate Amino Transferase 23 U/L (14-36); Bilirubin,Total 0.6 mg/dL (0.2-1.3); Blood Urea Nitrogen 15 mg/dL (7-17); Calcium 9.9 mg/dL (8.4-10.2); Carbon Dioxide 26 mmol/L (22-30); Chloride 103 mmol/L (98-107); Estimated CRCL calculation 56 ml/min; Estimated Glomerular Filt Rate > 60; Glucose 95 mg/dL (65-110); Potassium 3.8 mmol/L (3.4-5.0); Sodium 137 mmol/L (137-145)
[2023-08-16 14:57] LABS: Troponin I < 0.012 ng/mL (0.000-0.034)
[2023-08-16] MEDS: hydrALAZINE HCL 20 MG/ML VIAL 10 MG IV PUSH (16:01)
[2023-08-16] MEDS: METOPROLOL TARTRATE 25 MG TABLET PO (16:07)
--- NOTE | 2023-08-16 16:50 | PC.NURSE ---
RN checked manual blood pressures to verify. Right arm BP 244/110, Left arm BP 236/104. Pt complaining of headache. MD Veliz made aware.
[2023-08-16] MEDS: HYDROmorphone HCL INJ (*CRX) 1 MG/ML SYR 0.5 MG IV PUSH (17:39)
[2023-08-16] MEDS: niCARdipine 20 MG/200 ML 20 MG/200 ML BAG 50 MG IV CONT (17:45)
--- NOTE | 2023-08-16 18:09 | PM.IMHP ---
H&P: HPI History of Present Illness Date/Time: 08/16/23 20:00 Chief Complaint: High blood pressure. Narrative: This is a 62-year-old female with hypertension, hyperlipidemia, diastolic dysfunction, and anxiety who presented to the emergency department for evaluation elevated blood pressure. The patient provides the following history. She was scheduled to have a right knee replacement last week but that was delayed due to her high blood pressure readings. She has been taking increasing doses of losartan but blood pressures have remained high when she checks them at home. This seems like a longstanding problem and in fact she was admitted to the hospital couple of years ago with uncontrolled hypertension. She reportedly had some mild atherosclerosis of a renal artery but urine metanephrines, normetanephrines, and aldosterone. The patient states that her blood pressures have been better controlled since that hospitalization and that they only tend to elevate with stress. She has been more stressed as she recently quit smoking for her knee surgery and now she has more stress due to the fact that her surgery was canceled. Today she followed up with her primary care provider today at which time she was found to have a blood pressure of 212/107 and she was directed to the ER. When her blood pressure is high she has a frontal headache, face flushing, and a bit of lightheadedness. She reports a couple of instances of a deep cramping sensation in the left chest which occur randomly and are self-limiting without associated symptoms. She denies chest pain, shortness a breath, palpitations, syncope, near syncope, vision changes, and lower extremity edema. In the ED: Her blood pressure has been as high as 230/117. Despite receiving metoprolol in multiple doses of IV hydralazine, her blood pressures have remained over 200 systolic. She has since been started on nicardipine drip and is being admitted to the ICU for further treatment and close monitoring. Review of Systems Review of Systems: 12 systems were reviewed and are negative except for as per HPI. [facility] Past Medical History Medical History Anxiety Atherosclerosis of renal artery Diastolic dysfunction Diverticulosis Gastro-esophageal reflux disease without esophagitis Hyperlipidemia Hypertension Seizure disorder Tobacco abuse Surgical History Surgical History History of arthroplasty of left knee (02/2022) History of cholecystectomy History of tonsillectomy Family History Family History Grandparent Family history of heart disease in male family member before age 55 Father Hypertension Lung cancer Mother Hypertension Glaucoma Sibling Diabetes mellitus Hypertension Glaucoma Other Family history of arthritis Social History Social History Social History: Surrogate medical decision maker: Elijah Berumen, spouse. Code status: Full code. Smoking packs per day: 0.5 Smoking cigarettes per day: 10.0 Years smoked: 4 Smoking pack-years: 2.00 Smoking status: Former smoker Tobacco type: cigarettes Second hand tobacco smoke exposure: Yes Smoking end date: 05/31/23 Alcohol intake: current Drinks per week: 5 Substance use: never Substance use type: does not use Do You Feel Safe in your Home?: Yes Lack of Transportation: No Lack of Food: Never True Current Housing: I Have Housing Concerned About Future Housing: No Difficulty Paying Gas/Electric Bills: No Difficulty Paying for Meds: No Currently Unemployed: No Education: Associate Degree Difficulty w/ Childcare or Family Care: No Living arrangements: with family Occupation/Education: occupation Additional occupation/education comments:
--- NOTE | 2023-08-16 19:07 | ECG_ITS ---
SEE SCANNED COPY FOR CONFIRMED REPORT MTDD
[2023-08-16] MEDS: BELLADONNA ALK/PHENOB ELIX 10 ML, MAG HYDROX/ALUMINUM HYD/SIMETH 30 ML, LIDOCAINE HCL 2... PO (19:13)
--- NOTE | 2023-08-16 19:45 | ADMGEN ---
This patient, Elva Berumen, was admitted to Intensive Care Unit-5. Patient/family oriented to hospital policies and general routines including ID bracelet, bed and alarms, visiting hours, pain management, procedures, bathroom and other care routines, personal items, smoking policy, room service/diet, and visiting hours. Information on how to activate the Rapid Response Team has been discussed. Patient/Family are encouraged to report perceived risks to care and to ask questions if they do not understand what they are told or what they should do.
[2023-08-16 20:23] LABS: Troponin I < 0.012 ng/mL (0.000-0.034)
[2023-08-16] MEDS: ACETAMINOPHEN 325 MG TABLET 650 MG PO (21:16)
[2023-08-16] MEDS: amLODIPine BESYLATE 5 MG TABLET PO (23:26)
[2023-08-17] VITALS (9 sets, daily range): BP systolic 134–176; BP diastolic 59–91; PULSE 66–86; RESP 13–20; TEMP 36.5–36.8; O2SAT 95–99
--- NOTE | 2023-08-17 | ECHO_ITS ---
Patient Info Name: Elva Berumen Age: 62 years : 1960 Gender: Female Ht: 61 in Wt: 162 lbs BSA: 1.81 m2 HR: 66 bpm BP: 134 / 88 mmHg Heart Rhythm: Sinus Rhythm Technical Quality: Good Exam Date: 08/17/2023 9:04 AM Exam Location: Echo Lab Patient Status: Outpatient Admit Date: 08/16/2023 Staff Ordering Physician: Suzanne Velasco PA-C Social Welfare Administrator: Susi Sanchez RDCS Attending Provider: Yoan Garcia MD Referring Physician: Rod BERGER; Exam Type: CA echo doppler color flow Study Info Indications - hypertensive urgency, episode of chest pain Complete two-dimensional, color flow and Doppler transthoracic echocardiogram is performed. Summary 1. Complete two-dimensional, color flow and Doppler transthoracic echocardiogram is performed. 2. Left ventricular chamber dimension is normal. 3. Left ventricular systolic function is normal, estimated at 65-70%. 4. The left ventricular diastolic function is abnormal. 5. E/e' 16 is elevated. 6. Left atrial chamber dimension is mildly enlarged. 7. There is mild mitral valve regurgitation. 8. No pulmonary hypertension, estimated pulmonary arterial systolic pressure is 13 mmHg. Left Ventricle E/e' 16 is elevated. Left ventricular chamber dimension is normal. Left ventricular systolic function is normal, estimated at 65-70%. The left ventricular diastolic function is abnormal. Right Ventricle Right ventricular systolic function is normal and with normal TAPSE 2.8 cm. Right ventricular chamber dimension is normal. Left Atria Left atrial chamber dimension is mildly enlarged. Right Atria Right atrial chamber dimension is normal. Aortic Valve The aortic valve is trileaflet. There is no aortic valve stenosis. There is no aortic valve regurgitation. Pulmonic Valve There is no pulmonic regurgitation. Mitral Valve There is no mitral valve stenosis. There is mild mitral valve regurgitation. Tricuspid Valve There is no tricuspid valve regurgitation. No pulmonary hypertension, estimated pulmonary arterial systolic pressure is 13 mmHg. Pericardium/Pleural There is no pericardial effusion. Inferior Vena Cava Normal inferior vena cava with >50% collapse upon inspiration consistent with normal right atrial pressure, 5 mmHg. Aorta The aortic root size at the sinus of Valsalva is normal. Left Ventricular Outflow Tract Name Value Normal LVOT 2D LVOT Diameter 1.8 cm LVOT Doppler LVOT Peak Gradient 4 mmHg LVOT Mean Gradient 2 mmHg LVOT VTI 24 cm LVOT VTI/AV VTI Ratio 0.8 LVOT Stroke Volume 61 ml LVOT CO 3.8 l/min LVOT CI 2.1 l/min/m2 Pulmonic Valve Name Value Normal RVOT Doppler RVOT Peak Gradient 1 mmHg PV Doppler
[2023-08-17 04:35] LABS: Basophils Percent Auto 0.5 % (0.2-1.2); Eosinophils Absolute Auto 0.1 K/mm3 (0-0.3); Eosinophils Percent Auto 0.8 % (0-4.4); Hematocrit 39.4 % (37.0-47.0); Hemoglobin 12.6 g/dL (12.0-15.0); Immature Granulocyte Absolute 0.02 K/mm3 (0.00-0.031); Immature Granulocyte Percent A 0.3 % (0-0.5); Lymphocytes Absolute Auto 1.62 K/mm3 (0.9-3.2); Lymphocytes Percent Auto 25.8 % (18.3-44.2); Mean Corpuscular Volume 93.8 fl (80-100); Mean Platelet Volume 9.8 fl (7.4-10.4); Monocytes Absolute Auto 0.2 K/mm3 (0.1-0.6); Monocytes Percent Auto 3.3 % (2.6-8.5); Neutrophils Absolute Auto 4.4 K/mm3 (1.3-6.7); Neutrophils Percent Auto 69.3 % (45.5-73.1); Platelet Count Result 276 k/mm3 (150-375); Red Cell Distribution Width 13.3 % (11.5-14.5); White Blood Count 6.3 K/mm3 (4.5-10.0)
[2023-08-17 05:02] LABS: Alanine Aminotransferase 41 U/L (6-35); Albumin Level 4.4 g/dL (3.5-5.1); Alkaline Phosphatase 95 U/L (38-126); Anion Gap 9 mmol/L (4-12); Aspartate Amino Transferase 48 U/L (14-36); Bilirubin,Total 0.7 mg/dL (0.2-1.3); Blood Urea Nitrogen 15 mg/dL (7-17); Calcium 10.1 mg/dL (8.4-10.2); Carbon Dioxide 27 mmol/L (22-30); Chloride 105 mmol/L (98-107); Estimated CRCL calculation 57 ml/min; Estimated Glomerular Filt Rate > 60; Glucose 147 mg/dL (65-110); Magnesium 2.4 mg/dL (1.6-2.3); Potassium 4.3 mmol/L (3.4-5.0); Sodium 141 mmol/L (137-145)
[2023-08-17] MEDS: OMEGA 3 POLYUNSAT FATTY ACIDS 1 GM CAP PO (08:47)
[2023-08-17] MEDS: LOSARTAN POTASSIUM 50 MG TABLET PO (08:47)
[2023-08-17] MEDS: CHOLECALCIFEROL 1,000 UNITS TABLET 2000 UNITS PO (08:47)
[2023-08-17] MEDS: MAGNESIUM OXIDE 400 MG TABLET PO (08:47)
[2023-08-17] MEDS: CYANOCOBALAMIN 1,000 MCG TABLET 5000 MCG PO (08:47)
[2023-08-17] MEDS: amLODIPine BESYLATE 5 MG TABLET PO (08:47)
[2023-08-17] MEDS: PANTOPRAZOLE 40 MG TABLET PO (08:47)
[2023-08-17] MEDS: PSYLLIUM POWDER PACKET 1 PACKET BY MOUTH (08:48)
--- NOTE | 2023-08-17 08:57 | WPDCNINT ---
Assessment and Plan Assessment and plan (1) Hypertensive urgency: Code(s): I16.0 - Hypertensive urgency Status: Acute Assessment and Plan: Patient presented from the primary care doctor's office with hypertensive urgency with systolic blood pressures > 200s -patient was given metoprolol, hydralazine, additional losartan despite which the systolic blood pressures remained > 200s. Patient was started on nicardipine infusion which was turned off prior to patient arriving to the ICU. -she was given amlodipine which improved her blood pressure is significantly -currently blood pressure is in a great range -will continue losartan and amlodipine -continue to monitor (2) Gastro-esophageal reflux disease without esophagitis: Code(s): K21.9 - Gastro-esophageal reflux disease without esophagitis Status: Chronic Assessment and Plan: On Protonix (3) Hyperlipidemia: Code(s): E78.5 - Hyperlipidemia, unspecified Status: Acute Assessment and Plan: Continue fish oil (4) Anxiety: Code(s): F41.9 - Anxiety disorder, unspecified Status: Chronic Assessment and Plan: Continue home hydroxyzine , which she takes for anxiety Plan DVT prophylaxis: SCDs Stress ulcer prophylaxis: Protonix Nutrition: Heart healthy diet Code Status: Full Critical Care Time Spent: 44 minutes Discussed with patient updated her with her condition and plan of care. I answered all questions Patient may transfer out of the ICU if okay with hospitalist Due to a high probability of clinically significant, life threatening deterioration, the patient required my highest level of preparedness to intervene emergently and I personally spent this critical care time directly and personally managing the patient. This critical care time included obtaining a history; examining the patient; pulse oximetry; ordering and review of studies; arranging urgent treatment with development of a management plan; evaluation of patient's response to treatment; frequent reassessment; and discussions with other providers. It was exclusive of separately billable procedures and treating other patients and teaching time. Please see Assessment and Plan section and the rest of the note for further information on patient assessment and treatment This dictation may have been done utilizing a voice recognition system. Attempts have been made to correct errors. However, there may be uncorrected grammatical, spelling, and recognitions errors present. Cotton Dispatcher Consult Note Consult date: 08/17/23 Reason for consult: Hypertensive urgency HPI: Elva Berumen is a 62 year old female with past medical history of anxiety, arthrosclerosis of renal artery, diastolic dysfunction, diverticulosis, GERD, hyperlipidemia, essential hypertension, seizure disorder, tobacco abuse presented the ED on 08/16/2023 for evaluation of elevated blood pressures from the primary care doctor's office for admission. She was at the primary care doctor's office for clearance for her knee surgery, blood pressures were found to be 212/107. Patient also admitted to headaches, lightheadedness but denies any chest pain, shortness of breath, palpitations or syncope. Patient stated that her blood pressures are normally control but are elevated due to stress. She has been more stressed due to recent cessation of smoking, also that she has a knee surgery and her knee surgery is going to be canceled because of hypertension. Patient was given additional dose of losartan, metoprolol and hydralazine in the ER but systolic blood pressures remained > 200 and patient was started on nicardipine infusion and was transferred to the ICU for further management. According the bedside RN patient was on nicardipine infusion for approximately 15 minutes and was turned off because her blood pressures are much better. She was given a dose of amlodipine overnight with significant improvement in her
[2023-08-17] MEDS: ACIDOPHILUS/BULGARICUS CHEWABLE TABLET 2 TABLET BY MOUTH (09:01)
--- NOTE | 2023-08-17 09:05 | PM.IMPN ---
Progress Note: A&P Assessment and Plan (1) Hypertensive urgency: Code(s): I16.0 - Hypertensive urgency Status: Acute (2) Hyperlipidemia: Code(s): E78.5 - Hyperlipidemia, unspecified Status: Acute (3) Gastro-esophageal reflux disease without esophagitis: Code(s): K21.9 - Gastro-esophageal reflux disease without esophagitis Status: Chronic (4) Anxiety: Code(s): F41.9 - Anxiety disorder, unspecified Status: Chronic Plan The patient presented to the emergency department for evaluation of significantly elevated blood pressures as detailed in HPI. Labs, imaging, EKG, and all reports were personally reviewed. Despite multiple doses of IV hydralazine and metoprolol given in the ED in addition to an increase in her losartan dose recently, her blood pressures have remained over 200 systolic. She has been started on a nicardipine drip and will be monitored closely in the ICU. Given longstanding history of poorly controlled hypertension, we will need to drop her blood pressures slowly over the next 24 hours with a goal systolic blood pressure around 170 to 180. Start amlodipine in addition to her losartan which can also be increased. She reports being intolerant of metoprolol previously due to fatigue. She is afraid that her blood pressure will be over controlled with these changes as she thinks they are running high due to temporary stress. We discussed the importance of her monitoring her blood pressures daily at home and keeping a log of them and following up with her physician on discharge. The remainder of her vitals are stable. Her home medications will be reviewed and resumed as appropriate. 08/16: blood pressure is controlled increase amlodipine to 10 from 5 mg daily p.o. continue losartan 50 mg daily p.o., add clonidine 0.1 mg b.i.d. p.o. Hold hydralazine IV because of the side effect of headache start labetalol 10 mg IV push q.6 hours p.r.n. if systolic above 160 or diastolic above 100 discontinue nicardipine monitor blood pressure Follow echocardiogram, renal arterial Doppler optimize medication for better blood pressure control predict to discharge patient tomorrow if blood pressure is well controlled Subjective Date/time seen: 08/17/23 09:05 Interval history: I saw exam patient today, patient had a severe headache after receiving hydralazine push. Patient denies chest pain, shortness Of breath, abdomen pain nausea vomiting diarrhea vision change. Exam Narrative: General: Well-developed, nontoxic-appearing female sitting up in bed no distress. Weight: 74.3 kg. BMI: 31.0. HEENT: PERRL, EOMI. Slight exophthalmos. Sclera anicteric. Oral mucosa moist. Neck: Supple. No JVD or obvious bruits. Respiratory: Lungs are clear to auscultation bilaterally. Cardiovascular: Regular rate and rhythm with S1-S2. Gastrointestinal: Abdomen is soft, nontender, and nondistended with positive bowel sounds. Skin: Warm and dry. No rash or lesions on limited exam. Extremities: No cyanosis or clubbing. Trace bilateral lower extremity edema, left greater than right. Patient reports cramping sensations on palpation of the calves, more so on the left. Neurological: Alert and oriented. Cranial nerves 2-12 are grossly intact. Speech is clear. No facial asymmetry. No gross focal deficits to casual conversation. Psychiatric: Pleasant and cooperative with appropriate mood and affect. Objective Data Vital Signs Vital Signs: Vital Signs - 24 hr 08/16/23 13:36 08/16/23 14:10 08/16/23 14:28 Temperature 98.1 F Pulse Rate 82 78 72 Respiratory Rate 18 14 10 L Blood Pressure 230/117 H 225/102 H Pulse Oximetry 100 100 99 Oxygen Delivery Room Air Room Air 08/16/23 14:30 08/16/23 14:32 08/16/23 14:45 Temperature Pulse Rate 73 75 71 Respiratory Rate 11 L 14 12 Blood Pressure 204/95 H Pulse Oximetry 99 99 99 Oxygen Delivery 08/16/23 14:46 08/16/23 16:07 08/16/23 14:
[2023-08-17] MEDS: hydrALAZINE HCL 20 MG/ML VIAL 10 MG IV PUSH (11:17)
[2023-08-17] MEDS: ACETAMINOPHEN 325 MG TABLET 650 MG PO ×2 (12:28→20:13)
[2023-08-17] MEDS: ALPRAZolam (*CRX) 0.5 MG TABLET PO (13:07)
--- NOTE | 2023-08-17 13:12 | PC.NURSE ---
This patient, Elva Berumen, was transferred to [facility] on 08/17/23 at 1312. Personal belongings sent with patient. Report given to Katherine. Appropriate documentation sent with patient.
--- NOTE | 2023-08-17 13:23 | PC.NURSE ---
Pt. received from ICU-5 into room 302. Pt. oriented to unit's policies and procedures.
[2023-08-17] MEDS: cloNIDine HCL 0.1 MG TABLET PO (20:14)
[2023-08-18 00:11] VITALS: BP 124/62; PULSE 65; RESP 16; TEMP 36.2; O2SAT 95
[2023-08-18 05:03] VITALS: BP 100/63; PULSE 64; RESP 16; TEMP 36.2; O2SAT 98
[2023-08-18 08:00] VITALS: BP 141/64; PULSE 68; RESP 18; TEMP 36.6; O2SAT 97
[2023-08-18] MEDS: PSYLLIUM POWDER PACKET 1 PACKET BY MOUTH (08:17)
[2023-08-18] MEDS: LOSARTAN POTASSIUM 50 MG TABLET PO (08:20)
[2023-08-18] MEDS: cloNIDine HCL 0.1 MG TABLET PO (08:20)
[2023-08-18] MEDS: amLODIPine BESYLATE 5 MG TABLET PO (08:20)
[2023-08-18] MEDS: MAGNESIUM OXIDE 400 MG TABLET PO (08:21)
[2023-08-18] MEDS: ACETAMINOPHEN 325 MG TABLET 650 MG PO (08:21)
[2023-08-18] MEDS: CYANOCOBALAMIN 1,000 MCG TABLET 5000 MCG PO (08:21)
[2023-08-18] MEDS: CHOLECALCIFEROL 1,000 UNITS TABLET 2000 UNITS PO (08:21)
[2023-08-18] MEDS: ACIDOPHILUS/BULGARICUS CHEWABLE TABLET 2 TABLET BY MOUTH (08:22)
[2023-08-18 11:52] VITALS: BP 122/58; PULSE 66; RESP 20; TEMP 36.5; O2SAT 96
[2023-08-18] MEDS: CYCLOBENZAPRINE HCL 10 MG TABLET PO (11:57)
--- NOTE | 2023-08-18 13:43 | PM.DS ---
DS: Admitting Diagnosis Discharge Date August 18, 2023 Admitting Diagnosis Hypertensive urgency DS: Discharge Diagnosis Discharge Diagnosis (1) Transaminitis: Code(s): R74.01 - Elevation of levels of liver transaminase levels Status: Acute (2) Anxiety: Code(s): F41.9 - Anxiety disorder, unspecified Status: Acute (3) Hypertensive urgency: Code(s): I16.0 - Hypertensive urgency Status: Acute DS: Summary Hospital Course Hospital Course: This is a pleasant 62-year-old female company by her Elijah with past medical history obesity, generalized anxiety disorder, CVA, arthrosclerosis of renal artery, diastolic dysfunction, diverticulosis, GERD, hyperlipidemia, essential hypertension, seizures in the past, active tobacco abuse presenting from primary care doctors office after she was there for clearance for knee surgery and blood pressure found to be 212/107. Reportedly she was given metoprolol hydralazine and losartan then started on a nicardipine infusion and sent to the ICU but the nicardipine infusion was discontinued prior to the ICU. On August 17 she is currently on amlodipine losartan and clonidine and feeling well enough to go home. Her blood pressure on manual sphygmomanometer is 140/80 for discharge to home and she will be made new prescription for amlodipine and clonidine. She was on losartan prior. She has been advised take her blood pressures at home and know if they are elevated or too low to call the PCP or return to the ER. She reports headache with hydralazine we will avoid that. Since May she has cut down her tobacco abuse using only a few cigarettes per day however I have advised her again to cut that out completely to which she agrees. The patient has generalized anxiety disorder and complains about many things in her life causing anxiety. I advised her to seek out their evaluation with her PCP starting with cognitive behavioral therapy and then pharmacological therapy if needed. She agrees to this plan. I gave her some anxiety coping tips while she was here. Renal artery duplex demonstrating no evidence of renal artery stenosis however on CT of head does demonstrate cerebrovascular disease. Baby aspirin started. Patient has history of myalgias with statins. She is advised to have further follow-up with PCP risk modification. Adverse effects risk and benefits have been discussed with the patient and the and they understand and in our agreement with this plan in addition following up within 1 week with her PCP Dr. Ramachandran. She was full code during the admission. Time Spent with Patient Time attestation: Total time spent providing and/or coordinating discharge services: Exam Const: General: cooperative and no acute distress Resp: Effort & Inspection: normal respiratory effort Auscultation: clear to auscultation bilaterally Cardio: Rate: regular rate Rhythm: regular rhythm Heart sounds: S1 normal heart sound present and S2 normal heart sound present GI: GI Palp: No abdominal tenderness Auscultation: normal bowel sounds Discharge Plan Discharge Attending physician on discharge: Cheryl Dalton Consulting providers: Robin Pinto; Summer Castañeda Discharging Clinician: Cheryl Dalton Patient Disposition: Home, Self-Care Activity: august shower Diet: heart healthy Patient Instructions: Antibiotic Form, How to Stop Smoking (DC), Chronic Hypertension (GEN), Anxiety (GEN) Stand Alone Forms: General Discharge Information Follow-up/Referrals: Swapnil Ramachandran MD [Primary Care Provider] - 1 Week (Follow-up on comorbidities, blood pressure, new medications, history of cerebrovascular disease, anxiety.) Discharge Medications: New amlodipine [Norvasc] 5 mg Tablet 5 mg PO QAM Qty: 30 0RF clonidine HCl 0.1 mg Tablet 0.1 mg PO Q12HR Qty: 30 0RF aspirin 81 mg capsule 81 mg PO DAILY Qty: 30 0RF Continued cyclobenzapr
== END 2023-08-18 14:45 | disposition home or self-care (01) ==
LOC: ANHED 17:23 → ANHICU 08-17 05:33 → ANH3MEDSUR 08-17 14:28 → ANHICU 08-20 08:25
PROVIDERS: Nurse Practitioner Family; Physician Assistant; Admitting Provider Hospitalist; Emergency Provider Emergency Medicine; PCP Family Medicine; Visit Provider General Practice
DX: I16.0 Hypertensive urgency (principal); R74.01 Elevation of levels of liver transaminase levels; I11.9 Hypertensive heart disease without heart failure; K21.9 Gastro-esophageal reflux disease without esophagitis; Z87.891 Personal history of nicotine dependence; E78.5 Hyperlipidemia, unspecified; F41.1 Generalized anxiety disorder; Z86.73 Personal history of transient ischemic attack (TIA), and cerebral infarction without residual deficits
CPT/HCPCS: 36415; 70450; 80053; 81003; 83735; 84443; 84484; 85025; 93005; 93306; 93976; 96365; 96375; 96376; 99285; A9270; G0378; J0360; J1170; J2404

== ENCOUNTER 2023-09-18 00:08 | Day surgery (SDC) | payer BC, OTHER, SELFPAY ==
[2023-09-03 11:16] VITALS: BMI 30.2
[2023-09-18 08:47] VITALS: BP 150/97; PULSE 84; RESP 18; TEMP 36.3; O2SAT 100; BMI 30.7
[2023-09-18] MEDS: LACTATED RINGERS 1,000 ML 150 ML IV CONT (08:51)
--- NOTE | 2023-09-18 09:26 | WPDANESEPPF ---
Anes - Initial Pre Proc Eval Procedure: Operation Date: 09/18/23 10:00 Proposed Procedures p Esophagogastroduodenoscopy - Red Posey MD Date/Time: 09/18/23 09:26 Surgeon: Red Posey MD Pre Op Diagnosis: GERD without esophagitis Patient Data Age: 62 Gender: F Height: 1.55 m Weight: 73.7 kg Last Vital Signs Temp 97.4 F L 09/18/23 08:47 Pulse 84 09/18/23 08:47 Resp 18 09/18/23 08:47 BP 150/97 H 09/18/23 08:47 Pulse Ox 100 09/18/23 08:47 O2 Del Method Room Air 09/18/23 08:47 Allergies Allergy/AdvReac Type Severity Reaction Status Date / Time latex Allergy Unknown Swelling Verified 09/18/23 08:44 Penicillins Allergy Unknown Rash Verified 09/18/23 08:44 azithromycin AdvReac Intermediate Nausea Verified 09/18/23 08:44 ezetimibe [From Zetia] AdvReac Unknown Cramping Verified 09/18/23 08:44 of the Muscles Dtzhnun-YBI-MbY Reductase AdvReac Unknown Muscle pain Verified 09/18/23 08:44 Inhibitor [Gufwemh-Awx-Esz Reductase Inhibitor] triamcinolone [From Kenalog] AdvReac HTN, Verified 09/18/23 08:44 NAUSEA, ANXIETY Home Medications Medication Instructions Recorded Confirmed Type cyclobenzaprine 10 mg tablet 10 mg PO TID PRN muscle spasm #30 07/12/23 09/05/23 Rx tabs cholecalciferol (vitamin D3) 50 50 mcg PO DAILY 07/17/23 09/05/23 History mcg (2,000 unit) capsule cyanocobalamin (vitamin B-12) 5,000 mcg PO DAILY 07/17/23 09/05/23 History 5,000 mcg capsule krill 1 cap PO 2XW 07/17/23 09/05/23 History rgx-dp-9-dyy-lur-tcntxfjdmrkfp 300 mg-90 mg-24 mg-50 mg capsule (krill oil) lactobacillus combination no.8 3 3 cell PO DAILY 07/17/23 09/05/23 History billion cell capsule magnesium 500 mg tablet 15 mg PO DAILY 07/17/23 09/05/23 History omeprazole 20 mg capsule,delayed 20 mg PO DAILY PRN Indigestion 07/17/23 09/05/23 History release psyllium husk 0.4 gram capsule 0.4 g PO DAILY 07/17/23 09/05/23 History (Metamucil) hydroxyzine HCl 10 mg tablet 10 mg PO TID PRN anxiety #30 tabs 08/16/23 09/05/23 Rx aspirin 81 mg capsule 81 mg PO DAILY #30 caps 08/18/23 09/05/23 Rx clonidine HCl 0.1 mg tablet 0.1 mg PO Q12HR #30 tabs 08/18/23 09/05/23 Rx amlodipine 5 mg tablet (Norvasc) 5 mg PO BID #60 tabs 09/17/23 09/18/23 Rx losartan 50 mg tablet See Rx Instructions .Route 09/17/23 Rx .COMPLEX #180 tabs Patient hx anesthesia problems: none Family hx anesthesia problems: none Results Review: All pre-operative results and documents have been reviewed as part of the pre-operative evaluation. [facility] Past Medical History Medical History Anxiety Atherosclerosis of renal artery Diastolic dysfunction Diverticulosis Gastro-esophageal reflux disease without esophagitis Hyperlipidemia Hypertension Seizure disorder Tobacco abuse Surgical History Surgical History History of arthroplasty of left knee (02/2022) History of cholecystectomy History of tonsillectomy Family History Family History Grandparent Family history of heart disease in male family member before age 55 Father Hypertension Lung cancer Mother Hypertension Glaucoma Sibling Diabetes mellitus Hypertension Glaucoma Other Family history of arthritis Social History Social History (Updated 09/05/23 @ 14:46 by Jennifer Thorne MA) Social History: Surrogate medical decision maker: Elijah Berumen, spouse. Code status: Full code. Smoking packs per day: 0.5 Smoking cigarettes per day: 10.0 Years smoked: 40 Smoking pack-years: 20.00 Smoking status: Former smoker Tobacco type: cigarettes Second hand tobacco smoke exposure: Yes Smoking end date: 05/31/23 Alcohol intake: current Drinks per week: 2 Substance use: neve
--- NOTE | 2023-09-18 10:30 | SUR.PREOP ---
pt made aware that there is a delay in schedule due to inpatient procedure. voiced understanding.
--- NOTE | 2023-09-18 11:02 | PM.HPGS ---
History of Present Illness History of Present Illness Consent: Risks, benefits, and alternatives have been discussed and questions answered. Patient agrees to proceed with procedure. Chief complaint: GERD without esophagitis Narrative: Elva Berumen is a 62 year old female with dysphagia after meals, also gerd on omeprazole. Review of Systems Review of Systems: All systems reviewed & are unremarkable except as noted in HPI and below PMFSH Past Medical History Medical History (Updated 09/18/23 @ 11:02 by Red Posey MD) Anxiety Atherosclerosis of renal artery Diastolic dysfunction Diverticulosis Dysphagia Gastro-esophageal reflux disease without esophagitis Hyperlipidemia Hypertension Seizure disorder Tobacco abuse Surgical History Surgical History History of arthroplasty of left knee (02/2022) History of cholecystectomy History of tonsillectomy Family History Family History Grandparent Family history of heart disease in male family member before age 55 Father Hypertension Lung cancer Mother Hypertension Glaucoma Sibling Diabetes mellitus Hypertension Glaucoma Other Family history of arthritis Social History Social History (Updated 09/05/23 @ 14:46 by Jennifer Thorne MA) Social History: Surrogate medical decision maker: Elijah Berumen, spouse. Code status: Full code. Smoking packs per day: 0.5 Smoking cigarettes per day: 10.0 Years smoked: 40 Smoking pack-years: 20.00 Smoking status: Former smoker Tobacco type: cigarettes Second hand tobacco smoke exposure: Yes Smoking end date: 05/31/23 Alcohol intake: current Drinks per week: 2 Substance use: never Substance use type: does not use Do You Feel Safe in your Home?: Yes Lack of Transportation: No Lack of Food: Never True Current Housing: I Have Housing Concerned About Future Housing: No Difficulty Paying Gas/Electric Bills: No Difficulty Paying for Meds: No Currently Unemployed: No Education: Associate Degree Difficulty w/ Childcare or Family Care: No Living arrangements: with family Occupation/Education: occupation Additional occupation/education comments: [employer] Gender identity (if verbalized by the patient): Female Spiritual care concerns: No Meds Home Medications and Allergies Home Medications Medication Instructions Recorded Confirmed Type cyclobenzaprine 10 mg tablet 10 mg PO TID PRN muscle spasm #30 07/12/23 09/05/23 Rx tabs cholecalciferol (vitamin D3) 50 50 mcg PO DAILY 07/17/23 09/05/23 History mcg (2,000 unit) capsule cyanocobalamin (vitamin B-12) 5,000 mcg PO DAILY 07/17/23 09/05/23 History 5,000 mcg capsule krill 1 cap PO 2XW 07/17/23 09/05/23 History bid-gd-2-uac-nij-enamndtinsjvo 300 mg-90 mg-24 mg-50 mg capsule (krill oil) lactobacillus combination no.8 3 3 cell PO DAILY 07/17/23 09/05/23 History billion cell capsule magnesium 500 mg tablet 15 mg PO DAILY 07/17/23 09/05/23 History omeprazole 20 mg capsule,delayed 20 mg PO DAILY PRN Indigestion 07/17/23 09/05/23 History release psyllium husk 0.4 gram capsule 0.4 g PO DAILY 07/17/23 09/05/23 History (Metamucil) hydroxyzine HCl 10 mg tablet 10 mg PO TID PRN anxiety #30 tabs 08/16/23 09/05/23 Rx aspirin 81 mg capsule 81 mg PO DAILY #30 caps 08/18/23 09/05/23 Rx clonidine HCl 0.1 mg tablet 0.1 mg PO Q12HR #30 tabs 08/18/23 09/05/23 Rx amlodipine 5 mg tablet (Norvasc) 5 mg PO BID #60 tabs 09/17/23 09/18/23 Rx losartan 50 mg tablet See Rx Instructions .Route 09/17/23 Rx .COMPLEX #180 tabs Allergies Allergy/AdvReac Type Severity Reaction Status Date / Time latex Allergy Unknown Swelling Verified 09/18/23 08:44 Penicillins Allergy Unknown Rash Verified 09/18/23 08:44 azithromycin AdvReac Intermediate Nausea Anmol
[2023-09-18 11:14] VITALS: BP 154/86; PULSE 89; RESP 23; O2SAT 99
[2023-09-18 11:24] VITALS: BP 147/81; PULSE 79; RESP 15; O2SAT 100
[2023-09-18 11:34] VITALS: BP 156/85; PULSE 78; RESP 18; O2SAT 99
== END 2023-09-18 11:42 | disposition home or self-care (01) ==
PROVIDERS: PCP Family Medicine; Visit Provider Internal Medicine Gastroenterology
PROC: 0DJ08ZZ Inspection of Upper Intestinal Tract, Via Natural or Artificial Opening Endoscopic (ICD-10-PCS; CPT 43235; principal; 2023-09-18 10:00)
DX: K29.50 Unspecified chronic gastritis without bleeding (principal); K21.00 Gastro-esophageal reflux disease with esophagitis, without bleeding; I11.9 Hypertensive heart disease without heart failure; E78.5 Hyperlipidemia, unspecified; F41.9 Anxiety disorder, unspecified; Z87.891 Personal history of nicotine dependence; E66.9 Obesity, unspecified; Z68.30 Body mass index [BMI] 30.0-30.9, adult
CPT/HCPCS: 43239; 88305; J2001; J2704; J7120

== ENCOUNTER 2023-09-20 14:05 | Outpatient (CLI) | payer BC, OTHER, SELFPAY ==
[2023-09-20 15:10] LABS: INR 0.9; Prothrombin Time 12.8 Seconds (11.1-14.7)
[2023-09-20 15:11] LABS: Partial Thromboplastin Time 27.1 Seconds (22.3-36.8)
[2023-09-20 16:35] LABS: Urine Cotinine NEGATIVE
[2023-09-20 16:39] LABS: MRSA (PCR) NOT DETECTED (NOT DETECTE)
== END 2023-09-20 14:06 | disposition home or self-care (01) ==
LOC: ANHSURGERY 14:13
PROVIDERS: PCP Family Medicine; Visit Provider Orthopaedic Surgery
DX: M17.11 Unilateral primary osteoarthritis, right knee (principal); Z01.818 Encounter for other preprocedural examination
CPT/HCPCS: 80307; 85610; 85730; 86850; 86900; 86901; 87641

== ENCOUNTER 2023-09-26 01:52 | Day surgery (SDC) | payer BC, OTHER, SELFPAY ==
[2023-09-19 14:50] VITALS: BMI 30.4
--- NOTE | 2023-09-19 15:23 | PC.NURSE ---
Report to the Outpatient Waiting Room, entrance under the green pavilion located off [facility], at time __8:30AM on date __09/26/23 . Planned Procedure Time: __10:30AM . Time changes happen often and if your time is changed the preop area will call you the afternoon before. - You and your visitor will be asked to self-screen and do not enter if you have any COVID symptoms. - A mask is optional within the hospital at this time. Patients may have clear liquids (water, carbonated beverages, clear teas, apple juice) until 3 hours prior to surgery with a maximum of 20 ounces. - No food from midnight until time of surgery. Take the following medications with a SIP of water the morning of surgery: ____AMLODIPINE AND HYDROXYZINE NEEDED FOR ANXIETY DO NOT STOP ANY OF YOUR OTHER PRESCRIPTION MEDICATIONS PRIOR TO SURGERY ?EXCEPT THE FOLLOWING Medications to discontinue per physician ___HOLD ASPIRIN AND ALL VITAMINS/SUPPLEMENTS 7 DAYS PRE-OP PER DR WESLEY Date to take last dose___09/18/23 Please no make-up, nail guyanese, hairspray, perfume, deodorant, or body powder the day of surgery. No jewelry (including any body piercings) or valuables the day of surgery, leave them at home. Please take a shower or bath the night before, or the morning of, surgery with an antibacterial soap. Wear comfortable, loose fitting clothing. - Jewelry must be removed prior to entering the operating room. Rings and piercings that are not removed may be cut off. - The hospital will not accept responsibility for valuables. - Please leave all valuables, including medications, at home the day of surgery. If you are going home after surgery, a licensed racecar driver must drive you home. - NO public transportation without another adult if you receive anesthesia. - We recommend that an adult stay with you for 24 hours following discharge. - We also recommend that you do not drive, make important decision, drink alcoholic beverages, or take any drugs that were not prescribed by your health care provider for at least 24 hours after your discharge time. Follow any additional instructions given to you from your surgeon. If you or anyone in your household have experienced Covid symptoms in the past week, please notify your surgeon or the nurse liaison at the phone number below for possible testing. Telephone instructions given to ____PATIENT and asked if any additional questions and then verbalized understanding. Patient advised to call surgeon office or pre surgery nurse liaison [phone] if any additional questions.
[2023-09-26] VITALS (14 sets, daily range): BP systolic 113–168; BP diastolic 65–98; PULSE 84–100; RESP 10–18; TEMP 36.6–37.4; O2SAT 94–99; BMI 31.0
--- NOTE | ~2023-09-26 | XR_ITS ---
EXAMINATION: [id number] DATE: 09/26/2023 12:47 INDICATION: Total right knee arthroplasty. Postop. TECHNIQUE: 2 views of right knee were obtained. COMPARISON: Right knee radiographs 03/01/23 FINDINGS: There is a total right knee arthroplasty without patellar resurfacing in near-anatomic alig nment. No fracture. Patellar osteophytes have been resected. There is gas in the knee joint and soft tissues, consistent with recent surgery. Anterior skin dylon are noted. IMPRESSION: 1. Total right knee arthroplasty in near-anatomic alignment. Reviewed, dictated and finalized at location A.
--- NOTE | 2023-09-26 07:13 | WPDHPUPDATE1 ---
History and Physical Update Update Date/Time: 09/26/23 07:13 History and Physical has been reviewed, including an updated exam of the patient. There are NO changes in the patient's condition. Risks, benefits, and alternatives have been discussed and questions answered. Patient agrees to proceed with procedure.
[2023-09-26] MEDS: LACTATED RINGERS 1,000 ML 30 ML IV CONT ×2 (09:20→12:29)
--- NOTE | 2023-09-26 09:42 | WPDANESEPPF ---
Anes - Initial Pre Proc Eval Procedure: Operation Date: 09/26/23 10:30 Proposed Procedures p Right Total Knee Arthroplasty - Edwin Barnard MD Date/Time: 09/26/23 09:42 Surgeon: Edwin Barnard MD Pre Op Diagnosis: right knee DJD Patient Data Age: 62 Gender: F Height: 1.55 m Weight: 73 kg Allergies Allergy/AdvReac Type Severity Reaction Status Date / Time azithromycin Allergy Unknown Nausea,Nausea, Verified 09/20/23 15:18 RAPID HEART RATE latex Allergy Unknown Swelling Verified 09/20/23 15:18 Penicillins Allergy Unknown Rash Verified 09/20/23 15:18 Gdzwcjx-DLR-NjX Reductase Allergy Unknown Muscle Verified 09/20/23 15:18 Inhibitor Pain,Muscle [Nqfofnf-DPO-MyI Reductase pain, Inhibitors] JOINT PAIN triamcinolone [From Kenalog] Allergy HTN, Verified 09/20/23 15:18 NAUSEA, ANXIETY ezetimibe [From Zetia] AdvReac Unknown Cramping Verified 09/20/23 15:18 of the Muscles Home Medications Medication Instructions Recorded Confirmed Type cyclobenzaprine 10 mg tablet 10 mg PO TID PRN muscle spasm #30 07/12/23 09/20/23 Rx tabs cholecalciferol (vitamin D3) 50 50 mcg PO DAILY 07/17/23 09/20/23 History mcg (2,000 unit) capsule cyanocobalamin (vitamin B-12) 5,000 mcg PO DAILY 07/17/23 09/20/23 History 5,000 mcg capsule krill 1 cap PO EVERY OTHER DAY 07/17/23 09/20/23 History lmd-qv-4-gli-lzf-ayjpxfdmtjpdw 300 mg-90 mg-24 mg-50 mg capsule (krill oil) lactobacillus combination no.8 3 3 cell PO DAILY 07/17/23 09/20/23 History billion cell capsule magnesium 500 mg tablet 15 mg PO DAILY 07/17/23 09/20/23 History omeprazole 20 mg capsule,delayed 20 mg PO DAILY PRN Indigestion 07/17/23 09/20/23 History release psyllium husk 0.4 gram capsule 0.4 g PO DAILY 07/17/23 09/20/23 History (Metamucil) hydroxyzine HCl 10 mg tablet 10 mg PO TID PRN anxiety #30 tabs 08/16/23 09/20/23 Rx aspirin 81 mg capsule 81 mg PO DAILY #30 caps 08/18/23 09/20/23 Rx amlodipine 5 mg tablet (Norvasc) 10 mg PO QAM 09/19/23 09/20/23 History losartan 50 mg tablet See Rx Instructions .Route 09/25/23 Rx .COMPLEX #180 tabs Patient hx anesthesia problems: none Family hx anesthesia problems: none Results Review: All pre-operative results and documents have been reviewed as part of the pre-operative evaluation. [facility] Past Medical History Medical History Anxiety Atherosclerosis of renal artery Diastolic dysfunction Diverticulosis Dysphagia Gastro-esophageal reflux disease without esophagitis Hyperlipidemia Hypertension Seizure disorder Tobacco abuse Surgical History Surgical History History of arthroplasty of left knee (02/2022) History of cholecystectomy History of tonsillectomy Family History Family History Grandparent Family history of heart disease in male family member before age 55 Father Hypertension Lung cancer Mother Hypertension Glaucoma Sibling Diabetes mellitus Hypertension Glaucoma Other Family history of arthritis Social History Social History Social History: Surrogate medical decision maker: Elijah Berumen, spouse. Code status: Full code. Smoking packs per day: 0.5 Smoking cigarettes per day: 10.0 Years smoked: 40 Smoking pack-years: 20.00 Smoking status: Former smoker Tobacco type: cigarettes Second hand tobacco smoke exposure: Yes Smoking end date: 09/14/23 Alcohol intake: current Drinks per week: 4 Substance use: never Substance use type: does not use Do You Feel Safe in your Home?: Yes Lack of Transportation: No Lack of Food: Never True Current Housing: I Have Housing Concerned About Future Housing: No Difficulty Paying Gas/Electric Bills: No
[2023-09-26] MEDS: ACETAMINOPHEN 500 MG TABLET 1000 MG PO (10:02)
[2023-09-26] MEDS: TRANEXAMIC ACID 1,000MG/ISO100 1,000 MG/100 ML BAG 200 MG IVPB (10:03)
[2023-09-26] MEDS: ceFAZolin 2 GM/D5W 50 ML 2 GM/50 ML BAG IVPB ×2 (10:17→17:07)
[2023-09-26] MEDS: SODIUM CHLORIDE 0.9% IV 37.7 ML, MORPHINE SULFATE INJ (*CRX) 2 MG, ROPivacaine HCL 1% 2... INFILTRATE (10:31)
[2023-09-26] MEDS: TRANEXAMIC ACID 1,000 MG/10 ML AMPUL 1000 MG IV PUSH (11:48)
[2023-09-26] MEDS: BUPivacaine HCL 0.5% 10 ML AMP 30 ML INFILTRATE (12:07)
--- NOTE | 2023-09-26 12:35 | W.PM.PROC2 ---
Procedure Note - Detailed Date of Procedure 09/26/23 Pre-op Diagnosis right knee DJD Post-op Diagnosis Same Procedure Performed R TKA Surgeon Edwin Barnard MD Anesthesia General Description of Procedure THE RIGHT KNEE WAS PREPPED AND DRAPED IN THE STERILE FASHION. THERE WAS A 10 DEGREE FLEXION CONTRACTURE. A MIDLINE SKIN INCISION WAS MADE. A MEDIAL PARAPATELLAR ARTHROTOMY WAS MADE. THE PATELLA WAS EVERTED. THERE WAS TRICOMPARTMENT DJD. THERE WAS MINIMAL PATELLA DJD. AN INTRAMEDULLARY PAUL WAS PLACED IN THE FEMUR. A DISTAL FEMORAL CUT WAS MADE IN 5 DEGREES OF VALGUS REMOVING APPROXIMATELY 9 MM OF BONE FROM THE DISTAL FEMUR. THE FEMUR WAS SIZED TO 3. A 3 FEMORAL CUTTING BLOCK WAS PLACED IN 3 DEGREES OF EXTERNAL ROTATION AND IN ALIGNMENT WITH LIZET'S LINE AND THE TRANSEPICONDYLAR AXIS. ANTERIOR POSTERIOR AND CHAMFER CUTS WERE MADE. THE CUTS WERE EXCELLENT. NEXT AN INTRAMEDULLARY CUTTING GUIDE WAS PLACED IN THE TIBIA. A TRANS TIBIAL CUT WAS MADE ALONG THE LONG AXIS OF THE TIBIA. APPROXIMATELY 10 MM OF BONE WAS REMOVED FROM THE HIGH SIDE OF THE TIBIA. THE TIBIA WAS THEN PLANED TO A SMOOTH SURFACE. POSTERIOR FEMORAL OSTEOPHYTES WERE REMOVED FROM THE FEMORAL CONDYLES. A 4 TIBIAL TRIAL WAS PLACED IN ALIGNMENT WITH THE 1/3 MEDIAL ASPECT OF THE TIBIAL TUBERCLE. THEN A 3 FEMORAL TRIAL COMPONENT WAS PLACED. BOTH HAD EXCELLENT FITS. EVENTUALLY AN 11 MM CS POLYETHYLENE TRIAL COMPONENT WAS PLACED. THE KNEE WAS TAKEN THROUGH A RANGE OF MOTION. THE KNEE CAME OUT TO FULL EXTENSION. THERE WAS NO ABNORMAL TILT TO THE PATELLA. THERE WAS GOOD A/P AND VARUS/VALGUS STABILITY. THERE WAS NO EXCESSIVE ROLL BACK WITH FLEXION. THE TRIAL COMPONENTS WERE REMOVED. THEN A MELISSA SIZE 3 FEMORAL COMPONENT AND 4 TIBIAL COMPONENT WITH AN 11 CS POLYETHYLENE COMPONENT WERE PRESS FIT INTO PLACE. THE KNEE WAS TAKEN THROUGH A ROM AGAIN AND FOUND TO BE STABLE WITH NO PATELLA TILT NO EXCESSIVE ROLL BACK WITH FLEXION AND GOOD STABILITY WITH COMPLETE AND FULL EXTENSION. THE KNEE WAS IRRIGATED WITH STERILE BETADINE AND WATER FOR ABOUT 3 MINUTES. THE BLEEDERS WERE CAUTERIZED. THE ARTHROTOMY WAS REPAIRED WITH NUMBER 1 VICRYL. THE SUB CUTANEOUS LAYER WITH 2-0 VICRYL AND THE SKIN WITH SANGITA. THE WOUND WAS WASHED AND A STERILE DRESSING WAS APPLIED. PATIENT WAS EXTUBATED. Estimated Blood Loss -150.0 Pathology None sent Complications No immediate complications Condition Stable Disposition PACU
[2023-09-26] MEDS: fentaNYL CITRATE INJ (*CRX) 100 MCG/2 ML VIAL 25 MCG IV PUSH ×2 (13:14→13:32)
--- NOTE | 2023-09-26 13:40 | ADMGEN ---
This patient, Elva Berumen, was admitted to -. Patient/family oriented to hospital policies and general routines including ID bracelet, bed and alarms, visiting hours, pain management, procedures, bathroom and other care routines, personal items, smoking policy, room service/diet, and visiting hours. Information on how to activate the Rapid Response Team has been discussed. Patient/Family are encouraged to report perceived risks to care and to ask questions if they do not understand what they are told or what they should do.
[2023-09-26] MEDS: KETOROLAC 15 MG/ML VIAL (*BKC) IV PUSH ×2 (14:00→17:42)
[2023-09-26] MEDS: CYCLOBENZAPRINE HCL 10 MG TABLET PO (14:02)
[2023-09-26] MEDS: oxyCODONE/ACETAMINOPHEN (*CRX) 5-325 MG TABLET 1 TABLET PO ×3 (14:02→23:03)
[2023-09-26] MEDS: SENNA/DOCUSATE SODIUM TABLET 2 TAB PO (16:33)
[2023-09-26] MEDS: FAMOTIDINE 20 MG TABLET PO (20:01)
[2023-09-26] MEDS: ASPIRIN 325 MG ENTERIC TABLET PO (20:01)
[2023-09-27] MEDS: KETOROLAC 15 MG/ML VIAL (*BKC) IV PUSH ×3 (00:01→11:27)
[2023-09-27] MEDS: ONDANSETRON INJ 4 MG/2 ML VIAL IV PUSH (01:23)
[2023-09-27] MEDS: ceFAZolin 2 GM/D5W 50 ML 2 GM/50 ML BAG IVPB ×2 (01:23→09:31)
[2023-09-27 03:19] VITALS: BP 159/73; PULSE 93; RESP 16; TEMP 36.9; O2SAT 98
[2023-09-27 06:23] LABS: Basophils Percent Auto 0.2 % (0.2-1.2); Hematocrit 34.6 % (37.0-47.0); Hemoglobin 10.8 g/dL (12.0-15.0); Immature Granulocyte Absolute 0.05 K/mm3 (0.00-0.031); Immature Granulocyte Percent A 0.4 % (0-0.5); Lymphocytes Absolute Auto 1.12 K/mm3 (0.9-3.2); Mean Corpuscular HGB Conc 31.2 g/dl (32-36); Mean Corpuscular Hemoglobin 29.8 pg (26-34); Mean Corpuscular Volume 95.3 fl (80-100); Mean Platelet Volume 9.4 fl (7.4-10.4); Monocytes Absolute Auto 0.8 K/mm3 (0.1-0.6); Monocytes Percent Auto 6.8 % (2.6-8.5); Neutrophils Absolute Auto 9.2 K/mm3 (1.3-6.7); Neutrophils Percent Auto 82.6 % (45.5-73.1); Platelet Count Result 247 k/mm3 (150-375); Red Blood Count 3.63 M/mm3 (4.2-5.4); Red Cell Distribution Width 13.8 % (11.5-14.5); White Blood Count 11.2 K/mm3 (4.5-10.0)
[2023-09-27 06:35] LABS: Anion Gap 9 mmol/L (4-12); Blood Urea Nitrogen 17 mg/dL (7-17); Calcium 8.9 mg/dL (8.4-10.2); Carbon Dioxide 22 mmol/L (22-30); Chloride 104 mmol/L (98-107); Estimated CRCL calculation 51 ml/min; Estimated Glomerular Filt Rate > 60; Glucose 119 mg/dL (65-110); Potassium 4.4 mmol/L (3.4-5.0); Sodium 135 mmol/L (137-145)
[2023-09-27 08:00] VITALS: BP 155/81; PULSE 86; RESP 18; TEMP 36.5; O2SAT 100
[2023-09-27] MEDS: amLODIPine BESYLATE 5 MG TABLET 10 MG PO (08:37)
[2023-09-27] MEDS: FAMOTIDINE 20 MG TABLET PO (08:37)
[2023-09-27] MEDS: polyethylene glycoL 3350 17 GM POWD.PACK PO (08:37)
[2023-09-27] MEDS: ASPIRIN 325 MG ENTERIC TABLET PO (08:37)
[2023-09-27] MEDS: oxyCODONE/ACETAMINOPHEN (*CRX) 5-325 MG TABLET 1 TABLET PO (08:38)
[2023-09-27] MEDS: diazePAM (*CRX) 5 MG TABLET PO (08:38)
[2023-09-27] MEDS: SENNA/DOCUSATE SODIUM TABLET 2 TAB PO (08:38)
--- NOTE | 2023-09-27 09:09 | P.PNAN_ITS ---
Anes - Prog Note Post-Op Date/Time: 09/27/23 09:09 Cardiovascular status: normal Respiratory status: normal Airway patency: baseline Mental status: baseline Post-Op hydration status: normal Vital Signs: Last Vital Signs Temp 36.5 C 09/27/23 08:00 Pulse 86 09/27/23 08:00 Resp 18 09/27/23 08:00 BP 155/81 H 09/27/23 08:00 Pulse Ox 100 09/27/23 08:00 O2 Del Method Room Air 09/27/23 08:00 O2 Flow Rate 2 09/26/23 13:49 Pain Score (VAS): 07/07 I/O: Intake & Output 09/26/23 09/27/23 09/27/23 23:59 07:59 15:59 Intake Total 290 50 Balance 290 50 Laboratory Tests 09/27/23 06:05 09/27/23 06:05 09/27/23 06:05 WBC 11.2 H RBC 3.63 L Hgb 10.8 L Hct 34.6 L MCV 95.3 MCH 29.8 MCHC 31.2 L RDW 13.8 Plt Count 247 MPV 9.4 Immature Gran % (Auto) 0.4 Neut % (Auto) 82.6 H Lymph % (Auto) 10.0 L [place] % (Auto) 6.8 Eos % (Auto) 0.0 Baso % (Auto) 0.2 Lymph # (Auto) 1.12 [place] # (Auto) 0.8 H Eos # (Auto) 0.0 Baso # (Auto) 0.0 Abs Immat Gran (auto) 0.05 H Absolute Neuts (auto) 9.2 H Absolute Nucleated RBC 0.000 Nucleated RBC % 0.0 Sodium 135 L Potassium 4.4 Chloride 104 Carbon Dioxide 22 Anion Gap 9 BUN 17 Creatinine 0.90 Estim Creat Clear Calc 51 Estimated GFR > 60 Glucose 119 H Calcium 8.9 Post-procedural complaints: none Patient Feedback: Patient satisfied with anesthetic care.
--- NOTE | 2023-09-27 09:40 | PM.PNORT ---
Progress Note: A&P Assessment and Plan (1) S/P total knee arthroplasty: Qualifiers: Laterality: right Qualified Code(s): Z96.651 - Presence of right artificial knee joint Code(s): Z96.659 - Presence of unspecified artificial knee joint Status: Acute Assessment and Plan: POD #1 : Right TKA Continue PT/OT. WBAT. Walker. HIGH FALL RISK. Continue pain control. Ice Knee. Protect skin. DVT prophylaxis with Aspirin. SCDs. Incentive Spirometry Use reviewed. Monitor Dressing. Change prior to discharge. Bowel Regimen. Dispo: Home with Home Health pending progress with PT/OT Plan Reviewed history, exam, radiographs and current labs with attending MD and covering surgeon, Dr. Barnard, who agrees with current plan as indicated above. No further recommendations from Dr. Barnard at this time. Subjective Subjective Date/Time Seen: 09/27/23 09:40 Post Op day: 1 Interval history: POD #1: Right TKA Patient doing well. Pain well controlled. No new concerns. Hopeful for d/c home today. Review of Systems Review of Systems: All systems reviewed & are unremarkable except as noted in HPI and below Constitutional: Constitutional: Denies fever(s) and Denies headache(s) ENT: Denies headache(s) Cardiovascular: Cardiovascular: Denies chest pain, Denies diaphoresis, Denies palpitations and Denies dyspnea Respiratory: Respiratory: Denies dyspnea Gastrointestinal: Gastrointestinal: Denies abdominal pain, Denies constipation, Denies nausea and Denies vomiting Genitourinary: Genitourinary: Reports nocturia and Denies dysuria Musculoskeletal: Musculoskeletal: Reports arthralgias (Right Knee ) and Reports joint swelling (Right Knee ) Neurologic: Denies headache(s) Endocrine: Endocrine: Denies palpitations Exam Const: General: comfortable and no acute distress Resp: Effort & Inspection: normal respiratory effort Cardio: Rate: regular rate Rhythm: regular rhythm GI: GI Palp: Yes Soft to palpation, No Tenderness to palpation present (GI) and No Guarding due to palpation present (GI) Skin: General skin exam: wounds noted Wounds: wounds noted Other: Incision c/d/i. No surrounding redness/warmth. No hematoma. Mild ecchymosis. No wound dehiscence Neuro: Cognition (Neuro): normal cognition Other: NV intact aside from block. Moves toes. Sensation intact to light touch. +ankle dorsiflexion/plantarflexion. Extrem: Right lower extremity: normal to inspection, knee Details: tenderness (diffuse, mild ) Location: of the patella, swelling (diffuse, consistent with surgical intervention ), abnormal ROM Details: pain with active ROM during, pain with passive ROM during and with range as follows (limited due to recent surgical intervention ); able to extend lower leg actively and ecchymosis (mild ), lower leg (Negative Katie's Sign ) Details: normal to inspection; no erythema and no tenderness, ankle (+ankle dorsiflexion/plantarflexion ) Details: normal to inspection, no edema and normal ROM; no tenderness, no swelling and no ecchymosis and foot Details: normal capillary refill, normal to inspection, vascular exam Details: dorsalis pedis pulse present and motor-sensory exam Details: light-touch normal; no tenderness Left lower extremity: normal to inspection Psych: Mental Status: mental status grossly normal Objective Data Vital Signs Vital Signs: Vital Signs - 24 hr 09/26/23 10:10 09/26/23 12:29 09/26/23 12:40 Temperature 36.6 C Pulse Rate 86 89 Respiratory Rate 10 L 12 Blood Pressure 160/90 H 117/74 113/74 Pulse Oximetry 98 98 Oxygen Delivery Simple Face Mask Simple Face Mask Oxygen Flow Rate 8 8 09/26/23 12:55 09/26/23 13:10 09/26/23 13:25 Temperature 37.0 C Pulse Rate 90 91 90 Respiratory Rate 10 L 12 12 Blood Pressure 127/72 134/70 128/72 Pulse Oximetry 94 95 98 Oxygen Delivery Room Air Room Air Nasal Cannula Oxygen Flow Rate 2 09/26/23 13:49 09/26/23 13
[2023-09-27 12:00] VITALS: BP 129/79; PULSE 86; RESP 16; TEMP 36.3; O2SAT 97
--- NOTE | 2023-09-27 14:30 | PM.DS ---
DS: Admitting Diagnosis Discharge Date 09/27/23 Admitting Diagnosis Right Knee DJD DS: Discharge Diagnosis Discharge Diagnosis (1) S/P total knee arthroplasty: Qualifiers: Laterality: right Qualified Code(s): Z96.651 - Presence of right artificial knee joint Code(s): Z96.659 - Presence of unspecified artificial knee joint Status: Acute Assessment and Plan: POD #1 : Right TKA Continue PT/OT. WBAT. Walker. HIGH FALL RISK. Continue pain control. Ice Knee. Protect skin. DVT prophylaxis with Aspirin. SCDs. Incentive Spirometry Use reviewed. Monitor Dressing. Change prior to discharge. Bowel Regimen. Dispo: Home with Home Health pending progress with PT/OT Plan Reviewed history, exam, radiographs and current labs with attending MD and covering surgeon, Dr. Barnard, who agrees with current plan as indicated above. No further recommendations from Dr. Barnard at this time. DS: Summary Hospital Course Reason for hospitalization: Right TKA Hospital Course: 62 year old female admitted s/p Right TKA for postoperative medical management, pain control and mobilization with PT/OT. Patient progressed well with PT/OT. Pain and vitals remained stable throughout. The patient has been cleared to be discharged home with home health at this time. All discharge care instructions reviewed at depth. New medications reviewed. Follow up planned for 3 weeks in the outpatient orthopedic clinic with Dr. Barnard. Dr. Barnard in agreement with safe discharge at this time. Status at Discharge Functional status at discharge: uses cane/walker Overall status at discharge: patient is progressing back to baseline Time Spent with Patient Time attestation: Total time spent providing and/or coordinating discharge services: Exam Const: General: comfortable and no acute distress Resp: Effort & Inspection: normal respiratory effort Cardio: Rate: regular rate Rhythm: regular rhythm Skin: General skin exam: wounds noted Wounds: wounds noted Other: Incision c/d/i. No surrounding redness/warmth. No hematoma. Mild ecchymosis. No wound dehiscence Neuro: Cognition (Neuro): normal cognition Other: NV intact aside from block. Moves toes. Sensation intact to light touch. +ankle dorsiflexion/plantarflexion. Extrem: Right lower extremity: normal to inspection, knee Details: tenderness (diffuse, mild ) Location: of the patella, swelling (diffuse, consistent with surgical intervention ), abnormal ROM Details: pain with active ROM during, pain with passive ROM during and with range as follows (limited due to recent surgical intervention ); able to extend lower leg actively and ecchymosis (mild ), lower leg (Negative Katie's Sign ) Details: normal to inspection; no erythema and no tenderness, ankle (+ankle dorsiflexion/plantarflexion ) Details: normal to inspection, no edema and normal ROM; no tenderness, no swelling and no ecchymosis and foot Details: normal capillary refill, normal to inspection, vascular exam Details: dorsalis pedis pulse present and motor-sensory exam Details: light-touch normal; no tenderness Left lower extremity: normal to inspection Psych: Mental Status: mental status grossly normal DS: Data Data Completed and Pending Labs on day of discharge: Labs from last 24 hours 09/27/23 06:05 WBC 11.2 H RBC 3.63 L Hgb 10.8 L Hct 34.6 L MCV 95.3 MCH 29.8 MCHC 31.2 L RDW 13.8 Plt Count 247 MPV 9.4 Immature Gran % (Auto) 0.4 Neut % (Auto) 82.6 H Lymph % (Auto) 10.0 L Fountain % (Auto) 6.8 Eos % (Auto) 0.0 Baso % (Auto) 0.2 Lymph # (Auto) 1.12 Fountain # (Auto) 0.8 H Eos # (Auto) 0.0 Baso # (Auto) 0.0 Abs Immat Gran (auto) 0.05 H Absolute Neuts (auto) 9.2 H Absolute Nucleated RBC 0.000 Nucleated RBC % 0.0 Sodium 135 L Potassium 4.4 Chloride 104 Carbon Dioxide 22 Anion Gap 9 BUN 17 Creatinine 0.90 Estim Creat Clear Calc 51 Estimated GFR > 60 Glucose 119 H
== END 2023-09-27 15:00 | disposition home health service (06) ==
LOC: ANHSURGERY 08:42 → ANH3MEDSUR 13:40
PROVIDERS: PCP Family Medicine; Visit Provider Orthopaedic Surgery
PROC: (CPT 27447; principal; 2023-09-26 10:30)
DX: M17.11 Unilateral primary osteoarthritis, right knee (principal); E78.5 Hyperlipidemia, unspecified; F41.9 Anxiety disorder, unspecified; I11.0 Hypertensive heart disease with heart failure; I50.30 Unspecified diastolic (congestive) heart failure; K57.30 Diverticulosis of large intestine without perforation or abscess without bleeding; K21.9 Gastro-esophageal reflux disease without esophagitis; G40.909 Epilepsy, unspecified, not intractable, without status epilepticus; E66.9 Obesity, unspecified; Z68.31 Body mass index [BMI] 31.0-31.9, adult; Z79.82 Long term (current) use of aspirin; Z98.890 Other specified postprocedural states; Z90.49 Acquired absence of other specified parts of digestive tract; Z87.891 Personal history of nicotine dependence; Z80.1 Family history of malignant neoplasm of trachea, bronchus and lung; Z82.49 Family history of ischemic heart disease and other diseases of the circulatory system
CPT/HCPCS: 27447; 36415; 73560; 80048; 85025; 97110; 97116; 97161; 97165; 97530; 97535; A9270; C1713; C1776; J0171; J0690; J1100; J1170; J1200; J1885; J2250; J2270; J2405; J2704; J2795; J3010; J7120

== ENCOUNTER 2024-01-03 10:59 | Outpatient (CLI) | payer MEDICARE, BC, OTHER, SELFPAY ==
--- NOTE | ~2024-01-03 | XR_ITS ---
EXAMINATION: XR cervical spine min 6V DATE: 01/03/2024 10:56 INDICATION: Left neck pain. TECHNIQUE: 8 views of cervical spine including flexion and extension views were obtained. COMPARISON: Cervical spine radiographs 01/06/2023 FINDINGS: There is mild kyphosis of cervical spine. There is 1 mm retrolisthesis of C5 on C6. There i s no abnormal motion with flexion or extension. Vertebral body heights are normal. There is mildly de creased disc height at C4-C5 and severely decreased disc height at C5-C6 and C6-C7. There is multilev el uncovertebral joint osteoarthritis, severe bilaterally at C5-C6 and C6-C7. On the right, there is mild foraminal stenosis at C4-C5, moderate neural foraminal stenosis at C5-C6, and mild neural forami nal stenosis at C6-C7. On the left, there is mild neural foraminal stenosis at C4-C5 and moderate to severe neural foraminal stenosis at C5-C6 and C6-C7. There is mild central canal stenosis at C5-C6 an d C6-C7. No prevertebral soft tissue swelling. IMPRESSION: 1. Severe cervical spondylosis. Reviewed, dictated and finalized at location A.
--- NOTE | ~2024-01-03 | XR_ITS ---
Left Shoulder Technique: AP and scapular Y views were obtained. Clinical History: Pain Findings: No fracture or dislocation is seen. Osseous alignment is anatomic. The glenohumeral joint i s intact. There is mild AC joint degenerative change. Soft tissues are unremarkable. Impression: Mild AC joint degenerative change. Reviewed, dictated and finalized at location . Impression: Mild AC joint degenerative change.
[2024-01-03 11:39] LABS: Alanine Aminotransferase 55 U/L (6-35); Albumin Level 4.6 g/dL (3.5-5.1); Alkaline Phosphatase 117 U/L (38-126); Anion Gap 11 mmol/L (4-12); Aspartate Amino Transferase 67 U/L (14-36); Bilirubin,Total 0.4 mg/dL (0.2-1.3); Blood Urea Nitrogen 15 mg/dL (7-17); Calcium 9.6 mg/dL (8.4-10.2); Carbon Dioxide 27 mmol/L (22-30); Chloride 100 mmol/L (98-107); Estimated Glomerular Filt Rate > 60; Glucose 97 mg/dL (65-110); Potassium 4.7 mmol/L (3.4-5.0); Sodium 138 mmol/L (137-145)
== END 2024-01-03 11:00 | disposition home or self-care (01) ==
PROVIDERS: General Practice; PCP Family Medicine; Visit Provider Nurse Practitioner Family
DX: M19.012 Primary osteoarthritis, left shoulder (principal); M43.02 Spondylolysis, cervical region; M50.30 Other cervical disc degeneration, unspecified cervical region; R74.01 Elevation of levels of liver transaminase levels
CPT/HCPCS: 36415; 72052; 73030; 80053

== ENCOUNTER 2024-02-13 13:37 | Outpatient (CLI) | payer MEDICARE, BC, OTHER, SELFPAY ==
--- NOTE | ~2024-02-13 | MR_ITS ---
EXAMINATION: MR cervical spine wo con DATE: 02/13/2024 14:18 INDICATION: Spondylolysis, cervical region. TECHNIQUE: Magnetic resonance imaging (MRI) of the cervical spine was performed without intravenous c ontrast. COMPARISON: Cervical spine MRI 01/27/2023 FINDINGS: The 7 degrees dextrocurvature of cervical spine. Vertebral body heights are normal. There i s mildly decreased disc height at C4-C5, moderately decreased disc height at C5-C6, and severely decr eased disc height at C6-C7. There is increased T2-weighted signal intensity in the spinal cord at C5- C6. The following disc levels are specifically discussed: C2-C3: The disc does not extend beyond the endplate margin. There is no uncovertebral joint osteoarth ritis. There is mild right and moderate left facet joint osteoarthritis. There is no neural foraminal stenosis. There is no central canal stenosis. C3-C4: The disc does not extend beyond the endplate margin. There is mild lateral uncovertebral joint osteoarthritis. There is mild right and severe left facet joint osteoarthritis. There is mild bilate ral neural foraminal stenosis. There is no central canal stenosis. C4-C5: The disc is bulging. There is moderate bilateral uncovertebral joint osteoarthritis. There is mild right and severe left facet joint osteoarthritis. There is mild right and moderate left neural f oraminal stenosis. There is mild central canal stenosis with ventral indentation of the spinal cord. C5-C6: The disc is bulging. There is severe bilateral uncovertebral joint osteoarthritis. There is mo derate bilateral facet joint osteoarthritis. There is moderate bilateral neural foraminal stenosis. T here is severe central canal stenosis with ventral and dorsal indentation of the spinal cord. C6-C7: The disc is bulging. There is severe bilateral uncovertebral joint osteoarthritis. There is se justine right and moderate left facet joint osteoarthritis. There is moderate bilateral neural foraminal stenosis. There is mild central canal stenosis. C7-T1: The disc does not extend beyond the endplate margin. There is no uncovertebral joint osteoarth ritis. There is severe bilateral facet joint osteoarthritis. There is no neural foraminal stenosis. T here is no central canal stenosis. IMPRESSION: 1. Severe cervical spondylosis, stable from 01/27/2023. 2. Myelomalacia at C5-C6. Reviewed, dictated and finalized at location A.
== END 2024-02-13 13:38 | disposition home or self-care (01) ==
PROVIDERS: PCP Family Medicine; Visit Provider Nurse Practitioner Family
DX: M43.02 Spondylolysis, cervical region (principal); G95.89 Other specified diseases of spinal cord; M50.30 Other cervical disc degeneration, unspecified cervical region
CPT/HCPCS: 72141

== ENCOUNTER 2024-06-19 13:29 | Outpatient (CLI) | payer MEDICARE, BC, OTHER, SELFPAY ==
--- NOTE | ~2024-06-19 | MM_ITS ---
EXAMINATION: MM screening devonte BI w brenda HISTORY: Screening TECHNIQUE: Craniocaudal and mediolateral oblique 3-D tomosynthesis images were obtained and synthetic 2-D images were generated. CAD analysis was submitted and interpreted. COMPARISON: Comparison to multiple prior studies sequentially, with oldest reviewed study dated 10/17. BREAST PARENCHYMAL COMPOSITION: Not dense: There are scattered areas of fibroglandular density. FINDINGS: There is no evidence of suspicious mass, calcification, or architectural distortion to sugg est malignancy in either breast. There has been no suspicious interval change. IMPRESSION: 1. No mammographic evidence of malignancy. 2. Recommend routine screening mammography in one year. BI-RADS Category 1: Negative Reviewed, dictated and finalized at location B. [employer]
== END 2024-06-19 13:30 | disposition home or self-care (01) ==
PROVIDERS: PCP Family Medicine; Visit Provider Family Medicine
DX: Z12.31 Encounter for screening mammogram for malignant neoplasm of breast (principal)
CPT/HCPCS: 77063; 77067

== ENCOUNTER 2025-01-28 07:01 | Outpatient (CLI) | payer MEDICARE, OTHER, SELFPAY ==
--- NOTE | ~2025-01-28 | MR_ITS ---
EXAMINATION: MR cervical spine wo con DATE: 01/28/2025 08:14 INDICATION: Other intervertebral disc degeneration. TECHNIQUE: Magnetic resonance imaging (MRI) of the cervical spine was performed without intravenous contrast. COMPARISON: Cervical spine MRI 02/13/2024 FINDINGS: There is 4 degrees dextrocurvature of cervical spine. Vertebral body heights are normal. There is mildly decreased disc height at C4-C5, moderately decreased disc height at C5-C6, and severely decreased disc height at C6-C7. The spinal cord signal intensity is normal. The following disc levels are specifically discussed: C2-C3: The disc does not extend beyond the endplate margin. There is no uncovertebral joint osteoarthritis. There is mild bilateral facet joint osteoarthritis. There is no neural foraminal stenosis. There is no central canal stenosis. C3-C4: The disc does not extend beyond the endplate margin. There is moderate right and mild left uncovertebral joint osteoarthritis. There is mild right and severe left facet joint osteoarthritis. There is mild bilateral neural foraminal stenosis. There is no central canal stenosis. C4-C5: The disc is bulging. There is moderate right and severe left uncovertebral joint osteoarthritis. There is mild right and severe left facet joint osteoarthritis. There is mild right and moderate left neural foraminal stenosis. There is mild central canal stenosis. C5-C6: The disc is bulging. There is severe bilateral uncovertebral joint osteoarthritis. There is mild right and severe left facet joint osteoarthritis. There is moderate bilateral neural foraminal stenosis. There is moderate central canal stenosis with ventral and dorsal indentation of the spinal cord. C6-C7: The disc is bulging. There is moderate right and severe left uncovertebral joint osteoarthritis. There is severe bilateral facet joint osteoarthritis. There is mild right and moderate left neural foraminal stenosis. There is mild central canal stenosis. C7-T1: The disc does not extend beyond the endplate margin. There is no uncovertebral joint osteoarthritis. There is moderate right and severe left facet joint osteoarthritis. There is mild bilateral neural foraminal stenosis. There is no central canal stenosis. IMPRESSION: 1. Severe cervical spondylosis, stable from 02/13/2024. Reviewed, dictated and finalized at location E.
--- NOTE | ~2025-01-28 | MR_ITS ---
EXAMINATION: MR lumbar spine wo/w con DATE: 01/28/2025 08:14 INDICATION: Other intervertebral disc degeneration. TECHNIQUE: Magnetic resonance imaging (MRI) of the lumbar spine was performed without and with 17 mL MultiHance intravenous contrast. COMPARISON: Lumbar spine MRI 01/27/2023 FINDINGS: Alignment is normal. There is mild chronic anterior wedging of T12 and L1 vertebral bodies. There is mildly decreased disc height at L1-L2, L2-L3, L3- L4, and L4-L5. The distal spinal cord signal intensity is normal. The conus medullaris is at L1. The following disc levels are specifically discussed: L1-L2: The disc is bulging and has an annular fissure. There is mild bilateral facet joint osteoarthritis. There is mild bilateral neural foraminal stenosis. There is mild central canal stenosis. L2-L3: The disc is bulging and has an annular fissure. There is severe right and lateral left facet joint osteoarthritis. There is mild bilateral neural foraminal stenosis. There is mild central canal stenosis. L3-L4: The disc is bulging and has an annular fissure. There is severe bilateral facet joint osteoarthritis. There is mild right and moderate left neural foraminal stenosis. There is mild central canal stenosis. L4-L5: The disc is bulging and has an annular fissure. There is severe bilateral facet joint osteoarthritis. There is moderate right and mild left neural foraminal stenosis. There is moderate central canal stenosis. L5-S1: The disc is bulging and has an annular fissure. There is severe bilateral facet joint osteoarthritis. There is mild bilateral neural foraminal stenosis. There is mild central canal stenosis. IMPRESSION: 1. Moderate lumbar spondylosis, stable from 01/27/2023. Reviewed, dictated and finalized at location E.
--- OUTSIDE RECORDS SUMMARY | 2025-01-28 07:04 | XMS_ITS | Clinical Summary ---
Author Organization [facility] Address [address] [place] [address] Care Team Providers Care Interior Systems Carpenter Name Role Phone Swapnil Ramachandran MD Primary Care Provider [phone] Allergies Active Allergy Reactions Criticality Noted Date Comments Latex Rash Medium 03/05/2020 Penicillins Rash Medium 03/05/2020 Steroids Headache Medium 04/12/2022 Elevated bp Azithromycin Palpitations Low 12/05/2021 Elevated bp Medications pantoprazole EC (PROTONIX) 20 MG tabletIndication s:GERD Take 20 mg by mouth daily. Indications: GERD Active Magnesium 400 MG TabIndications:S upplement Take 400 mg by mouth daily. Indications: Supplement Active Biotin 10 MG TabIndications:S upplement Take 1 tablet by mouth every other day. Indications: Supplement Active Turmeric 500 MG CapIndications:S upplement Take 1 tablet by mouth daily. Indications: Supplement Active Chromium 200 MCG TabIndications:S upplement Take 1 tablet by mouth daily. Indications: Supplement Active Cholecalciferol 50 MCG (2000 UT) Chew TabIndications:S upplement Chew 4,000 Units by mouth daily. Indications: Supplement Active glucosamine-dea droitin 500-400 MG CapIndications:S upplement Take 1 capsule by mouth every other day. Indications: Supplement Active vitamin B-12 (CYANOCOBALAMIN) 500 MCG tabletIndication s:Supplement Take 5,000 mcg by mouth daily. Indications: Supplement Active Lactobacillus (FLORAJEN ACIDOPHILUS OR)Indications:P robiotic Take 1 capsule by mouth daily. Indications: Probiotic Active vitamin E 180 MG (400 UNIT) capsuleIndicatio ns:Supplement Take 400 Units by mouth daily. Indications: Supplement Active calcium carbonate (OS-ANKUSH) 1250 (500 Ca) MG tabletIndication s:Supplement Take 1 tablet by mouth daily. Indications: Supplement Active HYDROcodone-acet aminophen (NORCO) 7.5-325 MG tabletIndication s:Acute Pain < 7 Day Supply Take 1 tablet by mouth every 4 (four) hours as needed. Indications: Acute Pain < 7 Day Supply 20 tablet 2 Active losartan (COZAAR) 25 MG tabletIndication s:Hypertension Take 1 tablet (25 mg total) by mouth daily. 30 tablet 2 Active Active Problems Problem Noted Date Diagnosed Date Physical deconditioning 04/15/2022 Primary osteoarthritis of left knee 04/13/2022 Anxiety 11/24/2021 Essential hypertension 05/18/2020 Encounters Date Type Department Care Team Description 12/05/2024 11:55 AM CDT - 12/05/2024 11:59 PM CDT Hospital Encounter [facility] [address] [place] [address] Tanja Bui SENIOR DIRECTOR INSIGHT Discharge Disposition: Home or Self Care (Routine Discharge) 12/05/2024 Travel from Last 3 Months Family History Medical History Relation Comments Osteoarthritis Other Relation Status Comments Other Social History Tobacco Use Types Packs/Day Years Used Date Smoking Tobacco: Every Day Cigarettes Smokeless Tobacco: Never Tobacco Cessation:Ready to Q uit: Not Asked; Counseling Given: Not Answered Alcohol Use Standard Drinks/Week Comments Yes 0 (1 standard drink = 0.6 oz pur e alcohol) 2 times a week OASIS D0700: Social Isolation Answer Da te Recorded Frequency of experiencing loneliness or isolatio n Sometimes 05/03/2022 OASIS A1250: Transportation Answer Date Recorded Lack of Transportation (Medical) No 05/03/2022 Lack of Transportation (Non-Medical) No 05/03/2022 Patient Unable or Declines to Respond No 05/03/2022 OASIS B1300: Health Literacy Answer Eduin e Recorded Frequency of needing help to read materials from doctor or pharmacy Never 05/03/2022 Comments No Sex and Gender Information Value Date Recorded Sex Assigned at Not on file Legal Sex Female 7:01 PM CDT Gender Identity Not on file Sexual Orientation Choose not to disclose 2019 8:37 AM FIRE PREVENTION INSPECTOR Last Filed Vital Signs Vital Sign Reading Time Taken Comments Blood Pressure 152/88 05/03/2022 3:40 PM FIRE PREVENTION INSPECTOR Pulse 93 05/03/2022 3:40 PM FIRE PREVENTION INSPECTOR Temperature 36.1 C (97 F) 05/03/2022 3:40 PM FIRE PREVENTION INSPECTOR Respiratory Rate 18 05/03/2022 3:40 PM FIRE PREVENTION INSPECTOR Oxygen Saturation 98% 05/03/2022 3:40 PM FIRE PREVENTION INSPECTOR Inhaled Oxygen Concentration - - Weight 78.5 kg (173 lb) 04/19/2022 10:29 AM FIRE PREVENTION INSPECTOR Height 160 cm (5' 3) 04/19/2022 10:29 AM FIRE PREVENTION INSPECTOR Body Mass Index 30.65 04/19/2022 10:29 AM FIRE PREVENTION INSPECTOR Plan of Treatment Health Maintenance Due Date Last Done Comments Colorectal Cancer Screening Colonoscopy (10 Years) 1958 Hepatitis C 1976 Pneumococcal Vaccine: 50+ Years (1 of 2 - PCV) 1977 Mammogram Screening 1998 DTaP, Tdap and Td Vaccines ( 1 - Tdap) 06/05/1999 06/04/1999, 05/05/1989, 04/30/1989 Zoster Vaccines (1 of 2) 2008 Annual Medicare Wellness Visit 10/08/2023 Dexa Scan (General) 10/08/2023 COVID-19 Vaccine ( - 2023-2 5 season) 2024 RSV Immunization or 60+ Years (1 - 1-dose 75+ series) 2033 Meningococcal B Vaccine Aged Out No l onger eligible based on patient's age to complete this topic Meningococcal Vaccine Aged Out No gabe jeramy eligible based on patient's age to complete this topic RSV Immunizations Under 20 Months Aged Out No longer eligible b ased on patient's age to complete this topic Medical Devices Implanted Type Area Tie Knitter Helper Device Identifier Shelf Expiration Date Model / Serial / Lot Component Femoral 3 Knee Left Cruciate Retain Bead Triathlon Pa Sterile Latex Free - [id number] Implanted:Qt y: 1 on 04/12/2022 by Peña Bailey MD at [facility] Knee Components Left: Knee [employer] [id number] 05/28/2026 5517-F-[id number] Baseplate Tibial Triathlon 4 Knee Tritanium - [id number] Implanted:Qt y: 1 on 04/12/2022 by Peña Bailey MD at [facility] Knee Components Left: Knee [employer] [id number] 09/07/2026 5536-B-4 00 / / [id number] Triathlon X3 Tibial Bearing Insert Cs Implanted:Qt y: 1 on 04/12/2022 by Peña Bailey MD at [facility] Left: Knee [id number] 10/20/2026 [id number] / / [id number] Explanted Type Area Tie Knitter Helper Device Identifier Shelf Expiration Date Model / Serial / Lot Pin Butler Bone [place] 110 X 4 - [id number] Explanted:Qty: 1 on 04/12/2022 by Pñea Bailey MD at [facility] Pin Left: Knee [employer] [id number] / / [id number] Pin Melissa Bone [place] 140 X 4 - [id number] Explanted:Qty: 1 on 04/12/2022 by Peña Bailey MD at [facility] Pin Left: Knee [employer] [id number] / / [id number] Procedures Procedure Name Priority Date/Time Associated Diagnosis Comments XR THOR SPINE 3V Routine 12/05/2024 12:3 9 PM CDT Degeneration of lumbar intervertebral disc XR LUMB SPINE 3V Routine 12/05/2024 12:3 9 PM CDT Degeneration of lumbar intervertebral disc XR FOOT LT 3V Routine 12/05/2024 12:39 PM CDT Pain in left foot from Last 3 Months Results * XR THOR SPINE 3V (12/05/2024 12:39 PM CDT) Anatomical Region Laterality Modality Spine Radiographic Adri ging 12/05/2024 5:31 PM CDT Impressions 12/05/2024 5:33 PM CDT IMPRESSION: 1. No acute osseous abnormality. 2. Gell-jj-dlwbnrfm multilevel endplate degenerative change. 3. Mild cardiomegaly. Ordered By: TANJA BUI Interpreted By: La Nena Irwin, 12/05/2024 5:31 PM Narrative 12/05/2024 5:[address] [facility] [address] [place] [address] IMAGING STUDIES: XR THOR SPINE 3V DATE: 12/05/2024 12:01 PM COMPARISON: No comparison. Correlation with frontal view chest of March 05, 2020 CLINICAL HISTORY: disc degeneration . No history of trauma FINDINGS: No evidence of acute fracture or dislocation. Osteopenia limits exam Vertebral body heights and intervertebral disc spaces are within normal limits. . Lwlm-so-qumajoid multilevel endplate degenerative change with moderate sized anterior bridging osteophytes at T9-10 and T11-12 No paraspinal lesions. Visualized lung vargas are clear. Mild cardiomegaly. Procedure Note Harjeet Irwin MD - 12/05/2024 [facility] [address] [facility] [place] [address] IMAGING STUDIES: XR THOR SPINE 3VDATE: 12/05/2024 12:01 PM COMPARISON: No comparison. Correlation with frontal view chest ofMarch 05, 2020 CLINICAL HISTORY: disc degeneration . No history of trauma FINDINGS: No evidence of acute fracture or dislocation. Osteopenia limits exam Vertebral body heights and intervertebral disc spaces are within normallimits. . Rvwe-ya-mrbwszyb multilevel endplate degenerative change with moderatesized anterior bridging osteophytes at T9-10 and T11-12 No paraspinal lesions. Visualized lung vargas are clear. Mildcardiomegaly. IMPRESSION: 1. No acute osseous abnormality. 2. Fobj-hc-ufyhyxbk multilevel endplate degenerative change. 3. Mild cardiomegaly. Ordered By: TANJA BUI Interpreted By: La Nena Irwin, 12/05/2024 5:31 PM us Tanja Bui SENIOR DIRECTOR INSIGHT GENERAL IMAGING Final Result * XR LUMB SPINE 3V (12/05/2024 12:39 PM CDT) Anatomical Region Laterality Modality Spine Radiographic Adri ging 12/05/2024 1:27 PM CDT Impressions 12/05/2024 4:05 PM CDT IMPRESSION: 1. No acute osseous abnormality. 2. Degenerative changes are prominent at the facets of the L3-S1. This may be causing neural foraminal or spinal stenosis. Correlation with noncontrast lumbar spine MRI is recommended. Dictated By: Stella Bolaños MD on 12/05/2024 1:27 PM Referred By: TANJA BUI Interpreted By: Stella Bolaños MD, 12/05/2024 1:27 PM Narrative 12/05/2024 4:05 PM CDT [place] [address] [place] [address] [place] [address] EXAMINATION: XR LUMB SPINE 3V EXAM TIME: 12/05/2024 12:01 PM HISTORY: Chronic back pain COMPARISON: None. TECHNIQUE: AP, lateral, and coned L5-S1 views of the lumbar spine. FINDINGS: There are 5 lumbar-type vertebrae with minimal leftward scoliotic curve. Vertebral body heights are normal. Normal lumbar lordosis. Vertebral body alignment is normal. Mild degenerative disc disease with mild endplate spurs. No significant soft tissue abnormality is seen. Facet arthropathy is significant in the lower levels from L3 through S1. There is probably neural foraminal and/or spinal canal stenosis. Atherosclerotic calcifications of the aorta. Procedure Note Ronn Tadeo MD - 12/05/2024 [facility] [address] [place] [address] [place] [address] EXAMINATION: XR LUMB SPINE 3V EXAM TIME: 12/05/2024 12:01 PM HISTORY: Chronic back pain COMPARISON: None. TECHNIQUE: AP, lateral, and coned L5-S1 views of the lumbar spine. FINDINGS: There are 5 lumbar-type vertebrae with minimal leftwardscoliotic curve. Vertebral body heights are normal. Normal lumbarlordosis. Vertebral body alignment is normal. Mild degenerative discdisease with mild endplate spurs. No significant soft tissue abnormalityis seen. Facet arthropathy is significant in the lower levels from P4uyeppol S1. There is probably neural foraminal and/or spinal canalstenosis. Atherosclerotic calcifications of the aorta. IMPRESSION: 1. No acute osseous abnormality. 2. Degenerative changes are prominent at the facets of the L3-S1. Thismay be causing neural foraminal or spinal stenosis. Correlation withnoncontrast lumbar spine MRI is recommended. Dictated By: Stella Bolaños MD on 12/05/2024 1:27 PM Referred By: TANJA BUI Interpreted By: Stella Bolaños MD, 12/05/2024 1:27 PM Tanja Bui SENIOR DIRECTOR INSIGHT GENERAL IMAGING Final Result * XR FOOT LT 3V (12/05/2024 12:39 PM CDT) Anatomical Region Laterality Modality Foot Radiographic Adri ging 12/05/2024 1:15 PM CDT Impressions 12/05/2024 1:17 PM CDT IMPRESSION: 1. No acute abnormality. 2. Chronic changes as described. Ordered By: TANJA BUI Interpreted By: Isaías Garcia MD, 12/05/2024 1:15 PM Narrative 12/05/2024 1:[address] [facility] [address] [place] [address] Examination: XR FOOT LT 3V Exam time: 12/05/2024 12:01 PM Clinical history: Burning sensation and pain lateral foot. No known injury. Comparison: No prior exam Technique: AP, oblique, and lateral views left foot. Images obtained without weightbearing. Findings: Forefoot and hindfoot alignment is within normal limits on nonweightbearing views. No evidence of fracture, focal bone lesions, or abnormal periosteal reactions. Type I accessory navicular bone. Hypertrophic change dorsal aspect foot. Small plantar and tiny Achilles calcaneal enthesophytes. No evidence of abnormal soft tissue densities. Procedure Note Isaías Garcia MD - 12/05/2024 [facility] [address] [place] [address] Examination: XR FOOT LT 3V Exam time: 12/05/2024 12:01 PM Clinical history: Burning sensation and pain lateral foot. No knowninjury. Comparison: No prior exam Technique: AP, oblique, and lateral views left foot. Images obtainedwithout weightbearing. Findings: Forefoot and hindfoot alignment is within normal limits onnonweightbearing views. No evidence of fracture, focal bone lesions, orabnormal periosteal reactions. Type I accessory navicular bone.Hypertrophic change dorsal aspect foot. Small plantar and tiny Achillescalcaneal enthesophytes. No evidence of abnormal soft tissue densities. IMPRESSION: 1. No acute abnormality. 2. Chronic changes as described. Ordered By: TANJA BUI Interpreted By: Isaías Garcia MD, 12/05/2024 1:15 PM Tanja Bui GENERAL IMAGING Final Result from Last 3 Months Insurance [employer] [facility] MEDICARE Advance Directives * Full Code (Latest Code Status on File) Date Activated Date Inactivated Comments 04/19/2022 9:39 PM * Full Code Date Activated Date Inactivated Comments 04/19/2022 1:04 PM 04/19/2022 9:39 PM * Full Code Date Activated Date Inactivated Comments 04/14/2022 12:17 PM 04/18/2022 7:40 PM * Full Code Date Activated Date Inactivated Comments 04/12/2022 1:42 PM 04/14/2022 12:15 PM * Full Code Date Activated Date Inactivated Comments 04/12/2022 1:39 PM 04/12/2022 1:42 PM Care Teams Interior Systems Carpenter Relationship Specialty Start Date End Date Swapnil Ramachandran MD [address] [address] PCP - General FAMILY PRACTICE 03/05/20
--- OUTSIDE RECORDS SUMMARY | 2025-01-28 07:04 | XMS_ITS | Clinical Summary ---
Author Organization [facility] [address] Address [address] [place] [address] Care Team Providers Care Ukrainian Folk Arts Instructor Name Role Phone Swapnil Ramachandran MD Primary Care Provider Allergies Active Allergy Reactions Criticality Noted Date Comments Dexamethasone Other (See comments) High 05/18/2020 HTN, couldn't move Latex Rash Medium 03/05/2020 Penicillins Rash Medium 03/05/2020 Medications nebivoloL (BYSTOLIC) 20 mg tablet Take 20 mg by mouth daily Active Active Problems Problem Noted Date Diagnosed Date Chest pain 05/18/2020 Essential hypertension 05/18/2020 Surgical History Surgery Date Site/Laterality Comments CHOLECYSTECTOMY LUNG SURGERY TONSILLECTOMY LASER ABLATION OF THE CERVIX Medical History Medical History Date Comments Hypertension Cancer (HCC) lung Family History Medical History Relation Name Comments Cancer Father Hypertension Father Hypertension Mother Relation Name Status Comments Father Mother Alive Social History Tobacco Use Types Packs/Day Years Used Date Smoking Tobacco: Every Day Cigarettes Smokeless Tobacco: Never Alcohol Use Standard Drinks/Week Comments Yes 5 (1 standard drink = 0.6 oz pur e alcohol) Personal Safety Answer Date Recorded Getting School Help Needed Not on file 07/14 Comments Unknown Sex and Gender Information Value Date Recorded Sex Assigned at Not on file Legal Sex Female 3:38 AM CALENDERER Gender Identity Not on file Sexual Orientation Not on file Obstetrics History Last Filed Vital Signs Vital Sign Reading Time Taken Comments Blood Pressure 170/102 05/18/2020 4:42 PM CALENDERER Pulse 68 05/18/2020 4:00 PM CALENDERER Temperature - - Respiratory Rate - - Oxygen Saturation 98% 05/18/2020 4:00 PM CALENDERER Inhaled Oxygen Concentration - - Weight 68.9 kg (152 lb) 05/18/2020 4:00 PM CALENDERER Height 154.9 cm (5' 1) 05/18/2020 4:00 PM CALENDERER Body Mass Index 28.72 05/18/2020 4:00 PM CALENDERER Plan of Treatment Not on file Insurance [employer] [facility] Care Teams Ukrainian Folk Arts Instructor Relationship Specialty Start Date End Date Swapnil Ramachandran MD [facility] - General 08/12/14
--- OUTSIDE RECORDS SUMMARY | 2025-01-28 07:04 | XMS_ITS | Patient Health Record ---
Author Organization [facility] [employer] [facility] Address [address] [place] [address] Care Team Providers Care Paint Roller Cover Machine Setter Name Role Phone Aaron Montes Unavailable [phone] Reason For Referral No Information Medications Medication SIG (Take, Route, Frequency, Duration) Notes Start Date End Date Status Metoprolol Succinate ER 100 MG Tablet Extended Release 24 Hour Oral Active Metoprolol Succinate ER 50 MG Tablet Extended Release 24 Hour Oral Active Spironolactone 25 MG Tablet Oral Active Irbesartan 150 MG Tablet Oral Active Ezetimibe 10 MG Tablet Oral Active busPIRone HCl 7.5 MG Tablet Oral Active Cephalexin 500 MG Tablet Oral Active Plan Of Treatment No Information Insurance Providers Payer Name Payer Address Payer Phone Subscriber Number Group Number Insured Name Patient Relationship to Insured Coverage Start Date Coverage End Date [facility] [address] [place] [address] [id number] THI[address] CHAIREZ Spouse - patient is the spouse of the insured
--- OUTSIDE RECORDS SUMMARY | 2025-01-28 07:04 | XMS_ITS | Clinical Summary ---
Author Organization [facility] Address [address] [place] [address] Care Team Providers Care Attic Fans Mechanic Name Role Phone Unavailable Primary Care Provider Unavailabl e Source Comments [facility] [employer],non-owned Affiliates and Associated Physician Practices is amultiple site organization consisting of ambulatory clinics and hospital sitesin [place], [place], [place] and [place]. This disclosure is being madepursuant to the Care Everywhere program and may not contain all information available regarding this patient. Last updated 18.[facility] [employer] Social History Tobacco Use Types Packs/Day Years Used Date Smoking Tobacco: Never Assessed Comments Unknown Sex and Gender Information Value Date Recorded Sex Assigned at Not on file Legal Sex Female 7:07 AM CDT Gender Identity Not on file Sexual Orientation Not on file Plan of Treatment Health Maintenance Due Date Last Done Comments BONE DENSITY TESTING 1960 COLOGUARD (AGES 45-75) - COL ON CA SCREENING 1958 COLON MONITORING 1958 COLONOSCOPY - COLON CA SCREENING 1958 CT COLONOGRAPHY - COLON CA SCREENING 1958 Colorectal Cancer Screening 1958 FIT - COLON CA SCREENING 1958 FLEX SIG - COLON CA SCREENING 1958 LIPID TESTING 1958 MAMMOGRAM 1958 HEPATITIS C SCREENING 10/02/1976 DTAP/TDAP/TD VACCINES (1 - Tdap) 1977 PNEUMOCOCCAL VACCINE 50+ (1 of 1 - PCV) 2008 ZOSTER VACCINE (1 of 2) 2008 DEPRESSION SCREENING 04/30/2024 MEDICARE AWV CALENDAR YEAR 2024 COVID-19 VACCINE (1 - 2023-2 5 season) 2024 INFLUENZA VACCINE (#1) 2024 Respiratory Syncytial Virus (RSV) Vaccine Pt: or over 60 yrs (1 - 1-dose 75+ series) 2033 HEPATITIS B VACCINE Aged Out No longe r eligible based on patient's age to complete this topic HIB VACCINE Aged Out No longer eligi ble based on patient's age to complete this topic HPV VACCINE Aged Out No longer eligi ble based on patient's age to complete this topic MENINGOCOCCAL (Group B) VACC INE SHARED DECISION-MAKING Aged Out No longer eligibl e based on patient's age to complete this topic MENINGOCOCCAL GROUPS A/C/Y/W VACCINE Aged Out No longer eligible b ased on patient's age to complete this topic Insurance U[employer] MANAGED MEDICARE ADV [facility] * Guarantor: ELVA CHAIREZ Account Type Relation to Patient Date of Phone Billing Address Personal/Family [address] [place] [address] * Guarantor: ELVA CHARIEZ Account Type Relation to Patient Date of Phone Billing Address Personal/Family [address] [place] [address] * Guarantor: ELVA CHAIREZ Account Type Relation to Patient Date of Phone Billing Address Personal/Family [address] [place] [address]
--- OUTSIDE RECORDS SUMMARY | 2025-01-28 07:04 | XMS_ITS | Encounter Summary ---
Author Organization [facility] Address [address] [place] [address] Care Team Providers Care Water Pollution Control Technician Name Role Phone Unavailable Primary Care Provider Unavailabl e Encounter Details Date Type Department Care Team (Late st Contact Info) Description 06/17/2024 Lab Requisition [facility] - DermPath Lab [address] [place] [address] Steph Martell MD [address] [facility] [address] [place] [address] Social History Tobacco Use Types Packs/Day Years Used Date Smoking Tobacco: Never Assessed Comments Unknown Sex and Gender Information Value Date Recorded Sex Assigned at Not on file Legal Sex Female 7:07 AM CDT Gender Identity Not on file Sexual Orientation Not on file documented as of this encounter Plan of Treatment Not on file documented as of this encounter Procedures Procedure Name Priority Date/Time Associated Diagnosis Comments DERMATOPATHOLOGY Routine 06/17/2024 1:43 PM PHLEBOTOMIST ASSOCIATE documented in this encounter Results * DERMATOPATHOLOGY (06/17/2024 1:43 PM PHLEBOTOMIST ASSOCIATE) Case Report Dermatopathology Report Case: [id number] Authorizing Provider: Steph Martell MD Collected: 06/17/2024 01:43 PM Ordering Location: [facility] - Received: 06/19/2024 07:31 AM DermPath Lab Pathologist: Luanne Case MD Specimen: Skin, right upper arm 3:21 PM PHLEBOTOMIST ASSOCIATE DERMATOPATHOLOGY LABORATORY Final Diagnosis Specimen A. SKIN, right upper arm: LENTIGINOUS MELANOCYTIC NEVUS, JUNCTIONAL TYPE, IRRITATED (D22.61) ADJACENT JUNCTIONAL MELANOCYTIC NEVUS (D22.61) (see microscopic description and comment) 3:21 PM PHLEBOTOMIST ASSOCIATE DERMATOPATHOLOGY LABORATORY at [address] [facility] Clinical History Nevus, R/O Atypia 3:21 PM [facility] DERMATOPATHOLOGY LABORATORY Gross Description Specimen A: Received is one formalin filled container labeled with the patient's name and designated right upper arm. The specimen consists of a shave biopsy measuring 7x6x1 mm. Jar 0. 3:21 PM [facility] DERMATOPATHOLOGY LABORATORY Microscopic Description Specimen A. SKIN, right upper arm: Two separate proliferations are present within this specimen. The first is composed of a lentiginous proliferation of melanocytes between nests of cells along the dermal-epidermal junction. There is underlying fibroplasia of the papillary dermis with scattered melanophages and overlying pigmented parakeratosis. In a separate focus, there are nests of melanocytes at the dermal-epidermal junction with basilar pigmentation. The hematoxylin and eosin stain is reviewed; immunohistochemical stains are performed to further characterize this process. Mart1/MelanA highlights the low-lying and circumscribed nature of both lesions. PRAME is not overexpressed (2+). COMMENT: This case has been reviewed by Dr. Lia Case who concurs with the diagnosis. 3:21 PM [facility] DERMATOPATHOLOGY LABORATORY Disclaimer An external and internal positive and negative controls are appropriate for the histochemical, immunohistochemical and immunofluorescence stain(s) in this case (if any), except where stated explicitly. The performance characteristics of the stain(s) cited in this report were developed and its performance characteristic determined by the Dermatopathology Laboratory at [facility], directed by Dr. Flory Stewart. These tests need not be, and therefore are not, approved by the [place] Food and Drug Administration. The tests are used for clinical purposes. Billing Codes Specimen Charges Stain Charges 43252 1 [id number] 1 1 5 3:21 PM [facility] DERMATOPATHOLOGY LABORATORY Embedded Images 3:21 PM [facility] DERMATOPATHOLOGY LABORATORY Pathology/Cytolo gy TISSUE SPECIMEN FROM SKIN / Unknown 06/17/2024 1:43 PM PHLEBOTOMIST ASSOCIATE 06/19/2024 7:31 AM PHLEBOTOMIST ASSOCIATE us Steph Martell MD LAB - PATHOLOGY/CYTOLOGY ORD ERABLES Final Result DERMATOPATHOLOGY LABORATORY [facility] - Department of Dermatology [facility] [address] [place] [address], [address] [phone] documented in this encounter Visit Diagnoses Not on filedocumented in this encounter
== END 2025-01-28 07:02 | disposition home or self-care (01) ==
PROVIDERS: PCP Family Medicine; Visit Provider Nurse Practitioner Family
DX: M51.369 Other intervertebral disc degeneration, lumbar region without mention of lumbar back pain or lower extremity pain (principal); M43.02 Spondylolysis, cervical region; M43.06 Spondylolysis, lumbar region
CPT/HCPCS: 72141; 72158; A9577